=== PATIENT | female | born 1955 | race Caucasian/White ===

== ENCOUNTER → 2024-07-16 | Outpatient (CLI) | payer MEDICARE, MEDICAID, SELFPAY ==
[2024-07-16 09:37] LABS: Basophils # (Auto) 0.1 Thou/mm3 (0.0-0.2); Basophils % (Auto) 1 % (0-2.5); Eosinophils # (Auto) 0.4 Thou/mm3 (0.0-0.5); Eosinophils % (Auto) 5 % (0-10); Hematocrit 22.7 % (36.0-46.0); Immature Granulocytes % (Auto) 1 % (0-0); Immature Granulocytes Auto 0.05 Thou/mm3 (0.00-0.00); Lymphocytes # (Auto) 1.1 Thou/mm3 (1.0-4.8); Lymphocytes % (Auto) 12 % (10-50); Mean Corpuscular HGB Conc 31.7 g/dl (31.0-37.0); Mean Corpuscular Hemoglobin 30.9 pg (25.0-35.0); Mean Corpuscular Volume 97 fL (80-100); Monocytes % (Auto) 12 % (0-12); Neutrophils # (Auto) 6.3 Thou/mm3 (1.8-7.7); Neutrophils % (Auto) 71 % (37-80); Nucleated Red Blood Cell % 0 /100 WBC (0); Platelet Count 246 Thou/mm3 (140-440); RDW Standard Deviation 54.6 fL (36.4-46.3); Red Blood Count 2.33 Miln/mm3 (4.00-5.20); White Blood Count 8.9 Thou/mm3 (3.6-11.0)
[2024-07-16 09:48] LABS: Albumin, Serum 4.3 gm/dL (3.4-4.8); Anion Gap 8 (7-16); BUN/Creatinine Ratio 36 Ratio (12-20); Blood Urea Nitrogen 62 mg/dL (9-23); Calcium 9.5 mg/dL (8.3-10.6); Calcium (Corrected) 9.5 mg/dL (8.5-10.1); Carbon Dioxide 22.9 mMol/L (20.0-31.0); Chloride 110 mMol/L (98-107); Creatinine (Component) 1.7 mg/dL (0.6-1.3); Glucose 129 mg/dL (74-106); Osmolality,Calculated 300 (275-295); Phosphorous 4.5 mg/dL (2.4-5.1); Sodium 141 mMol/L (136-145); eGFR 32 See Note
[2024-07-16 09:51] LABS: Vitamin D 25 Hydroxy Total 22.8 ng/mL (7.3-40.2)
[2024-07-16 10:02] LABS: Hemoglobin 7.2 g/dL (12.0-16.0)
== END | disposition home or self-care (01) ==
LOC: COPL 08:06
PROVIDERS: PCP Physician Assistant; Referring Provider Internal Medicine; Visit Provider Internal Medicine
DX: I12.9 Hypertensive chronic kidney disease with stage 1 through stage 4 chronic kidney disease, or unspecified chronic kidney disease (principal); E11.22 Type 2 diabetes mellitus with diabetic chronic kidney disease; N18.32 Chronic kidney disease, stage 3b
CPT/HCPCS: 36415; 80069; 82306; 85025

== ENCOUNTER 2024-07-29 17:36 | Inpatient (IN) | payer MEDICARE, MEDICAID, SELFPAY ==
[2024-07-29] VITALS (9 sets, daily range): BP systolic 163–175; BP diastolic 65–93; PULSE 78–94; RESP 15–24; TEMP 36.9–37.1; O2SAT 94–100; BMI 32.9
--- NOTE | 2024-07-29 18:58 | EDNOTE_ITS ---
Altered Mental Status RME/HPI General Chief Complaint: Altered Mental Status Stated Complaint: ALTERED; WEAKNESS X 1 WK Time Seen by Provider: 07/29/24 18:59 Arrival date/time: 07/29/24 17:36 RME / HPI RME / HPI narrative: Dr. Aden's Main ED Evaluation: 69-year-old female coming in with increasing worsening shortness of breath over the last 1 week. Patient states her O2 sat was low. She is compliant with her medications. Patient was having 3-4 episodes of diarrhea x 2-3 days. Patient has a past medical history: CHF class III with an EF of 40 to 45% Non-ST elevation [place] Acute kidney injury Essential hypertension Diabetes Obesity Hypothyroidism Anemia DVT Related Data Home Medications ?Medication ?Instructions ?Recorded ?Confirmed diphenhydramine HCl 25 mg tablet 25 mg PO BID ALLERGY 08/10/23 08/10/23 (Benadryl Allergy) levothyroxine 175 mcg tablet 175 mcg PO EVERYOTHERDAY 08/10/23 08/10/23 levothyroxine 200 mcg tablet 200 mcg PO EVERYOTHERDAY 08/10/23 08/10/23 Allergies Allergy/AdvReac Type Severity Reaction Status Date / Time shellfish derived Allergy Intermediate Flushing Verified 08/12/23 19:20 aspirin Allergy Verified 08/10/23 01:05 codeine Allergy Verified 08/10/23 00:41 doxycycline Allergy Verified 08/10/23 00:41 egg Allergy Verified 08/10/23 00:41 tetracycline Allergy Verified 08/10/23 00:41 Review of Systems Review of Systems Systems Reviewed: All systems reviewed, normal except as documented Past Medical History Past Medical History CARDIAC: Positive Congestive Heart Failure and Hypertension RESPIRATORY: Negative Chronic Obstructive Pulmonary Disease (COPD) GENITOURINARY: Negative Renal Disease ENDOCRINE: Positive Diabetes Mellitus Type 2 and Hypothyroidism; Negative Diabetes Mellitus Type 1 OTHER HISTORY: Positive Cancer Surgical History SURGICAL: Positive Tonsillectomy Social History SMOKING STATUS: Never smoker SECOND HAND EXPOSURE: No ED Exam Narrative Physical exam: Patient awake. GCS 15. No acute distress. Dry mucous membranes. General General appearance: Present other Eye Eye exam: Present PERRL; Absent scleral icterus or conjunctival injection ENT ENT exam: Present mucous membranes dry Neck Neck exam: Present normal inspection Chest Chest inspection: Present normal inspection Respiratory Respiratory exam: Present normal lung sounds bilaterally Cardiovascular Cardiovascular exam: Present regular rate Abdominal Exam Abdominal exam: Present soft; Absent distention, tenderness, guarding, rebound, rigidity or normal bowel sounds Back Exam Back exam: Present normal inspection and full ROM; Absent tenderness, CVA tenderness (R) or CVA tenderness (L) Psychiatric Psychiatric exam: Present normal affect Course Course Course Narrative: CXR is ordered for determining the etiology of weakness. Quality Measures none Orders Category Date Time Status EKG (ED ONLY) *Do not use* NOW Care 07/29/24 19:[address] head/brain wo con Stat Exams 07/29/24 19:04 Completed CXRP [XR chest 1V portable] Stat Exams 07/29/24 19:03 Completed EKG (ED Only) Stat Exams 07/29/24 19:03 Draft BNP [B-Type Natriuretic Peptide] Stat Lab 07/29/24 19:24 Completed CBC Stat Lab 07/29/24 19:24 Completed CMP [Comprehensive Metabolic Panel] Stat Lab 07/29/24 19:24 Completed TSH [Thyroid Stimulating Hormone] Stat Lab 07/29/24 19:24 Completed Troponin I Stat Lab 07/29/24 19:24 Completed Troponin I Stat Lab 07/29/24 22:04 Ordered Urinalysis Stat Lab 07/29/24 19:03 Ordered Sodium Chloride 0.9% 1000 ml [Ns] 1,000 ml Med 07/29/24 19:05 Discontinued IV 999 mls/hr Vital Signs Vital signs: Vital Signs Temperature 98.7 F 07/29/24 17:40 Pulse Rate 87 07/29/24 17:40 Respiratory Rate 16 07/29/24 17:40 Blood Pressure 165/87 H 07/29/24 17:40 Pulse Oximetry (%) 99 07/29/24 17:40 Oxygen Delivery Method Room Air 07/29/24 17:40 Pulse ox is 99% on room air, which is normal according to my interpretation. Altered Mental Status MDM Narrative MDM Narrative:: Differential diagnosis includes dehydration, electrolyte abnormality, COVID, RSV, viral syndrome, doubt stroke. Possible pneumonia. Patient was seen in the emergency department and was noted that her creatinine is now elevated to 2.4 from 1.8. Troponin is 0.212 with an elevated BNP of 1941. Last BNP was [address] elevation on EKG however concern for worsening CHF exacerbation, with some hypoxia. Patient is on anticoagulant for the DVT. The symptoms did not come on acutely and at this time I do not feel the patient needs a CT angio She is compliant with her medications. Patient data External records reviewed:: [facility] previous records (Per chart review, patient was seen and admitted here on 08/10/23 for NSTEMI.) Clinical information provided by:: patient Social determinants that could affect healthcare access:: none Patient has the following chronic illnesses:: CHF, HTN, DM How is presenting disease/condition affected by chronic disease/condition?: uneffected by Evaluation data The following diagnostics were reviewed and interpreted by me:: lab results, radiology exam(s) and EKG tracing(s) Lab and/or radiology exams considered but not ordered:: none Interpretation Summary: WBC count is elevated at 12.9, Creatinine is elevated at 2.4, Glucose is elevated at 233, Troponin is elevated at 0.212, BNP is elevated at 1941, according to my interpretation. EKG done at 1922, NSR, rate of 82, LVH, QTC: 481, no STEMI, according to my interpretation. ----- I have personally reviewed the radiology data and agree with the radiologist's interpretation below: [facility] Report Signed Patient: CLARI JIMENEZ [facility]. Record#: [id number] Birthdate: 1955 Age/Sex: 69 / F Location: [facility] Attending Dr: Ordering Physician: Toshia Aden MD Date of Service: 07/29/24 Procedure(s): XR chest 1V portable Accession Number(s): [id number] cc: Ever Pardo MD; Toshia Aden MD~ Examination: AP chest single view Technique one AP portable semiupright chest single view Exam date and time: July 29, 2024 1910 hrs. Comparison August 10, 2023 Indications: Weakness chest pain shortness of breath today. Findings: Mild CHF Mild to moderate enlargement cardiac contour Prominent vascular congestion with early septal edema Moderate at the lung bases Impression: Early CHF Dictated By: Ever Pardo MD Signed By: <Electronically signed by Ever Pardo MD in [place]> 07/29/241948 [facility] Report Signed Patient: CLARI JIMENEZ. Record#: [id number] Birthdate: 1955 Age/Sex: 69 / F Location: [facility] Attending Dr: Ordering Physician: Toshia Aden MD Date of Service: 07/29/24 Procedure(s): CT head/brain wo con Accession Number(s): [id number] cc: Ever Pardo MD; Toshia Aden MD~ Examination: CT brain head without contrast. 2-D sagittal coronal reconstructions Date and time of exam:July 29, 2024 1931 hrs. Indications: Altered mental status today confusion, history CVA CTDI: vol (mGy):49.5 DLP: (mGycm):957 Technique: Multiple CT axial sections of the brain have been obtained, 5 mm slice thickness. Contrast has not been administered. 2-D sagittal, coronal reconstructions have been obtained Low dose protocols were performed. One or more of the following dose reduction techniques were used; automated exposure control, adjustment of the mA and/or KV according to patient size, use of iterative reconstruction technique. Findings: No significant ventricular enlargement. Old infarct left cerebellar hemisphere Intra-axial or extra-axial hemorrhage density is not seen. No mass effect or midline shift Basal cisterns are not remarkable. Fourth ventricle is midline. Cranial vault intact. Impression: Negative for acute hemorrhage, mass effect or midline shift As clinically warranted brain MRI follow-up would best assess for acute ischemic change Dictated By: Ever Pardo MD Signed By: <Electronically signed by Ever Pardo MD in OV> 07/29/241943 Medications / Prescriptions Medications or Prescriptions considered but not ordered:: none Medication administrations:: Medication Administration History Discontinued Medications Sodium Chloride (Ns) 1,000 mls @ 999 mls/hr IV .Q1H1M ONE Stop: 07/29/24 20:05 Last Infusion: 07/29/24 20:49 Dose: Infused Documented By: Admin: 07/29/24 19:45 Dose: 999 mls/hr Documented By: CLINT see above, if any Consultations Consultation(s) initiated? (list below): Yes Consultation #1 (Physician, Specialty, Details): Discussed case with [Dr. Jnug] from Hospitalist service regarding admission. Discussed patients ED course, exam findings, labs, and radiology results. The Hospitalist [agrees] to accept the patient for admission. Diagnosis Differential diagnosis altered mental status: other (dehydration, electrolyte abnormality, COVID, RSV, viral syndrome, stroke, pneumonia) Most likely diagnosis given after review of the tests above:: see below Admission Indicated Admission indicated?: indicated Admission Request Was there a request for admission?: Yes Admission Attestation Admission request attestation: Discussed case with [] from Hospitalist service regarding admission. Discussed patients ED course, exam findings, labs, and radiology results. The Hospitalist [agrees,declines] to accept the patient for admission. Disposition Plan Disposition Plan: Admit Critical Care Time Critical Care Time Critical Care Time: Yes Total Critical Care Time (min.): 45 Attestation: The high probability of sudden, clinically significant deterioration in the patient?s condition required the highest level of my preparedness to intervene urgently. The services I provided to this patient were to treat and/or prevent clinically significant deterioration. Services included the following: chart data review, reviewing nursing notes and/or old charts, documentation time, renewable energy consultant collaboration regarding findings and treatment options, medication orders and management, direct patient care, vital sign assessments and ordering, interpreting and reviewing diagnostic studies and lab tests. Aggregate critical care time includes only time during which I was engaged in work directly related to the patient?s care, as described above, whether at bedside or elsewhere in the Emergency Department. It did not include time spent performing other reported procedures or the services of residents, students, nurses or physician assistants. Discharge Plan Plan Patient Disposition: Admit Acute Care w/in Hospital Patient condition on transfer: Stable Prescriptions/Referrals Prescriptions/Med Rec: No Action levothyroxine 175 mcg tablet 175 mcg PO EVERYOTHERDAY Patient Comments: TAKE 1 TABLET BY MOUTH EVERY DAY diphenhydramine HCl [Benadryl Allergy] 25 mg Tablet 25 mg PO BID levothyroxine 200 mcg tablet 200 mcg PO EVERYOTHERDAY Patient Comments: TAKE 1 TABLET BY MOUTH ON MONDAYS, WEDNESDAYS, FRIDAYS AND SUNDAYS Problem List Clinical Impression: Generalized weakness, CHF (congestive heart failure), NYHA class III, Acute exacerbation of CHF (congestive heart failure), Elevated troponin I level, Acute on chronic renal failure Patient/Caregiver Discharge Instructions Print Language: Macedonian Stand Alone Forms: [employer] Info., Patient Portal Info Letter
--- NOTE | 2024-07-29 19:03 | EKG_ITS ---
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
--- NOTE | 2024-07-29 19:03 | XR_ITS ---
Examination: AP chest single view Technique one AP portable semiupright chest single view Exam date and time: July 29, 2024 1910 hrs. Comparison August 10, 2023 Indications: Weakness chest pain shortness of breath today. Findings: Mild CHF Mild to moderate enlargement cardiac contour Prominent vascular congestion with early septal edema Moderate at the lung bases Impression: Early CHF
--- NOTE | 2024-07-29 19:04 | XR_ITS ---
Examination: CT brain head without contrast. 2-D sagittal coronal reconstructions Date and time of exam:July 29, 2024 1931 hrs. Indications: Altered mental status today confusion, history CVA CTDI: vol (mGy):49.5 DLP: (mGycm):957 Technique: Multiple CT axial sections of the brain have been obtained, 5 mm slice thickness. Contrast has not been administered. 2-D sagittal, coronal reconstructions have been obtained Low dose protocols were performed. One or more of the following dose reduction techniques were used; automated exposure control, adjustment of the mA and/or KV according to patient size, use of iterative reconstruction technique. Findings: No significant ventricular enlargement. Old infarct left cerebellar hemisphere Intra-axial or extra-axial hemorrhage density is not seen. No mass effect or midline shift Basal cisterns are not remarkable. Fourth ventricle is midline. Cranial vault intact. Impression: Negative for acute hemorrhage, mass effect or midline shift As clinically warranted brain MRI follow-up would best assess for acute ischemic change
[2024-07-29] MEDS: SODIUM CHLORIDE 0.9% 1000 ML 1,000 ML 999 ML IV (19:45)
[2024-07-29 20:05] LABS: Basophils # (Auto) 0.1 Thou/mm3 (0.0-0.2); Basophils % (Auto) 1 % (0-2.5); Eosinophils % (Auto) 0 % (0-10); Hematocrit 23.3 % (36.0-46.0); Immature Granulocytes % (Auto) 2 % (0-0); Immature Granulocytes Auto 0.26 Thou/mm3 (0.00-0.00); Lymphocytes # (Auto) 0.7 Thou/mm3 (1.0-4.8); Lymphocytes % (Auto) 5 % (10-50); Mean Corpuscular HGB Conc 32.2 g/dl (31.0-37.0); Mean Corpuscular Hemoglobin 31.1 pg (25.0-35.0); Mean Corpuscular Volume 97 fL (80-100); Monocytes # (Auto) 1.1 Thou/mm3 (0.0-0.8); Monocytes % (Auto) 8 % (0-12); Neutrophils # (Auto) 10.7 Thou/mm3 (1.8-7.7); Neutrophils % (Auto) 84 % (37-80); Nucleated Red Blood Cell % 0 /100 WBC (0); Platelet Count 266 Thou/mm3 (140-440); RDW Standard Deviation 55.3 fL (36.4-46.3); Red Blood Count 2.41 Miln/mm3 (4.00-5.20); White Blood Count 12.9 Thou/mm3 (3.6-11.0)
[2024-07-29 20:14] LABS: Alanine Aminotransferase 26 U/L (10-49); Albumin, Serum 4.4 gm/dL (3.4-4.8); Albumin/Globulin Ratio 1.6 (1.2-2.2); Alkaline Phosphatase 102 U/L (46-116); Anion Gap 13 (7-16); Aspartate Amino Transferase 33 U/L (0-34); B-Type Natriuretic Peptide 1941 pg/mL (0-100); BUN/Creatinine Ratio 28 Ratio (12-20); Bilirubin,Total 0.9 mg/dL (0.3-1.2); Blood Urea Nitrogen 66 mg/dL (9-23); Calcium 9.3 mg/dL (8.3-10.6); Calcium (Corrected) 9.3 mg/dL (8.5-10.1); Carbon Dioxide 17.7 mMol/L (20.0-31.0); Chloride 108 mMol/L (98-107); Creatinine (Component) 2.4 mg/dL (0.6-1.3); Estimated Creatinine Clearance 25.4 mL/min (>60); Globulin 2.7 gm/dL (2.3-3.5); Glucose 233 mg/dL (74-106); Osmolality,Calculated 303 (275-295); Potassium 4.9 mMol/L (3.4-5.1); Sodium 139 mMol/L (136-145); Total Protein 7.1 gm/dL (5.7-8.2); eGFR 21 See Note
[2024-07-29 20:15] LABS: Hemoglobin 7.5 g/dL (12.0-16.0)
[2024-07-29 20:17] LABS: Troponin I 0.212 ng/mL (0.0-0.045)
--- NOTE | 2024-07-29 22:43 | ECHO_ITS ---
Transthoracic Echo Report Ht (in): 66 Wt (lb): 204 Exam Location: Portable Status: Inpatient Beam House Inspector: Brii Thomas Indications: Procedure Performed: BP: 147 / 66 HR: 72 Rhythm: Sinus Technical Quality: Fair MEASUREMENTS (Male / Female) Normal Values 2D ECHO LV Diastolic Diameter PLAX 5.9 cm 4.2 - 5.9 / 3.9 - 5.3 cm LV Systolic Diameter PLAX 4.4 cm IVS Diastolic Thickness 1.1 cm 0.6 - 1.0 / 0.6 - 0.9 cm LVPW Diastolic Thickness 1.1 cm 0.6 - 1.0 / 0.6 - 0.9 cm LV Relative Wall Thickness 0.4 LVOT Diameter 2.1 cm LA Volume Index 54.2 cm?/m? 16 - 28 cm?/m? Ascending Aorta Diameter 3.1 cm M-MODE Aortic Root Diameter MM 2.7 cm LA Systolic Diameter MM 4.3 cm LA Ao Ratio MM 1.6 MV E Point Septal Separation 1.3 cm AV Cusp Separation MM 2.1 cm DOPPLER AV Peak Velocity 168.0 cm/s AV Peak Gradient 11.3 mmHg AV Mean Gradient 6.0 mmHg AV Velocity Time Integral 39.0 cm LVOT Peak Velocity 89.4 cm/s LVOT Peak Gradient 3.2 mmHg LVOT Velocity Time Integral 21.4 cm LVOT Cardiac Index 2529.8 cm?/min?m? AV Area Cont Eq vti 1.9 cm? AV Area Cont Eq pk 1.8 cm? MV Peak Velocity 126.0 cm/s MV Peak Gradient 6.4 mmHg MV Mean Velocity 76.0 cm/s MV Mean Gradient 3.0 mmHg MV Area PHT 4.3 cm? MR Peak Velocity 513.5 cm/s MR Peak Gradient 105.5 mmHg Mitral E Point Velocity 103.0 cm/s Mitral A Point Velocity 71.8 cm/s Mitral E to A Ratio 1.4 LV E' Lateral Velocity 6.9 cm/s Mitral E to LV E' Lateral Ratio 15.0 LV E' Septal Velocity 4.5 cm/s Mitral E to LV E' Septal Ratio 23.1 TR Peak Velocity 253.0 cm/s TR Peak Gradient 25.6 mmHg FINDINGS Left Ventricle Mild left ventricle dilation. Mild systolic dysfunction.Mild global hypokinesis. The ejection frac tion is visually estimated at 40-45%. Right Ventricle The right ventricle is mildly dilated. Normal systolic function. The estimated right ventricular sys tolic pressure, 48 mmHg. RAP 15. Left Atrium The left atrium is moderately dilated. Right Atrium The right atrium is moderately dilated. Atrial Septum The interatrial septum appears normal with no evidence of a shunt. Aorta The aorta is normal by two-dimensional, color flow and Doppler interrogation. Mitral Valve The mitral valve is mildly MAC. There is mild to moderate mitral valve regurgitation. Aortic Valve The aortic valve is trileaflet and normal by two-dimensional, color flow and Doppler interrogation. There is no significant aortic valve regurgitation. Tricuspid Valve The tricuspid valve is normal by two-dimensional, color flow and Doppler interrogation. There is mil d tricuspid valve regurgitation. Pulmonic Valve There is mild pulmonic valve regurgitation. Vessels The pulmonary artery appears normal. The inferior vena cava pulmonary and hepatic veins appear mildl y dilated. Pericardium The pericardium is normal by two-dimensional imaging. There is no significant pericardial effusion. CONCLUSIONS Indication: Heart failure Mild LV dilation. Moderate systolic dysfunction with moderate global hypokinesis. Estimated EF 35-40 % Stage II diastolic dysfunction. Mild LVH. Mild RV dilation. Normal RV function. Estimated RVSP 48mmHg. Moderate PAH. RAP 15. Moderate biatrial dilation. Mild MAC. Mild to moderate MR. Mild TR, PI. IVC mild dilation. Jeff Flores (Electronically Signed) Final Date: 31 July 2024 13:31
--- NOTE | 2024-07-29 22:45 | XR_ITS ---
Examination: Duplex scan of the lower extremity, unilateral right complete Date and time of exam: July 29, 2024 at 11:42 PM Indications: Right leg pain several years with shortness of breath today Technique: Duplex scan of the extremity veins using B-mode/grayscale imaging and Doppler spectral analysis and color flow Attention is directed to internal echogenicity, compression and augmentation involving these veins, color flow assessment, spectral analysis Findings: Major deep venous structures in the extremity demonstrate normal course and caliber. There is no evidence of deep vein thrombosis. Normal color flow and spectral analysis Impression: Negative for DVT..
[2024-07-29 22:51] LABS: Collection Type, Urine Clean Catch
--- NOTE | 2024-07-29 22:53 | ESHP_ITS ---
<Statement entered by Christopher Jung MD - 07/30/24 13:31> was present for the essential components of the history, physical examination, diagnosis, and treatment plan with the resident. I have reviewed the documentation, discussed the case with the resident and agree with the patient's care as documented by the resident. High risk complex 75 mins. 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 Patient endorses progressive worsening of shortness of breath for the last week with associated bilateral lower extremity edema, but denies associated orthopnea, PND, and chest discomfort. She is followed outpatient by Dr. Flores. Her only other complaint is fecal incontinence and 2-3 episodes of nonbloody loose bowel movements. No fever, chills, abdominal pain, nausea, vomiting, or recent antibiotic use. ED course: BP 165/87, otherwise patient on 2 L NC saturating 99%. WBC 12.9, Hgb 7.5, HCO3 17.7, Cr 2.4, GFR 21, glucose 233, BNP 1941, Troponin 0.212 Given 1 L NS bolus in ED PMHx: as listed above Medications: Levothyroxine, amlodipine, losartan, carvedilol, Lasix, Glyburide, Januvia, lisinopril SHx: No cigarettes, alcohol, or illicit drug use Review of Systems Review of Systems Systems Reviewed: All systems reviewed, normal except as documented Exam Vital Signs Temp Pulse Resp BP Pulse Ox O2 Del Method 98.4 F 78 20 163/82 H 100 Room Air 07/29/24 19:16 07/29/24 21:01 07/29/24 21:01 07/29/24 21:01 07/29/24 21:01 07/29/24 19:16 Narrative Exam General: hirsutism, AOx3, laying flat in no acute distress, able to speak full sentences HEENT: NC/AT, mucous membranes moist, bilateral sclera anicteric Cardiovascular: regular rate and rhythm, S1/S2 present, no murmurs appreciated Pulmonary: clear to auscultation bilaterally, no rales/rhonchi/wheezes Abdominal: soft, non-tender, non-distended, no rebound/guarding, normal bowel sounds present Musculoskeletal: bilateral lower extremity edema R > L Skin: warm and dry, intact, no rashes Neuro: CN II-XII intact, no focal deficits Results: Labs 07/30/24 04:58 07/30/24 04:58 Labs: Short CBC 07/29/24 Range/Units 19:24 WBC 12.9 H (3.6-11.0) Thou/mm3 Hgb 7.5 L (12.0-16.0) g/dL Hct 23.3 L (36.0-46.0) % Plt Count 266 (140-440) Thou/mm3 BMP 07/29/24 19:24 Sodium 139 Potassium 4.9 Chloride 108 H Carbon Dioxide 17.7 L BUN 66 H Creatinine 2.4 H Glucose 233 H Calcium 9.3 Cardiac Enzymes 07/29/24 Range/Units 19:24 Troponin I 0.212 H* (0.0-0.045) ng/mL Liver Function 07/29/24 Range/Units 19:24 Total Bilirubin 0.9 (0.3-1.2) mg/dL AST 33 (0-34) U/L ALT 26 (10-49) U/L Alkaline Phosphatase 102 (46-116) U/L Albumin 4.4 (3.4-4.8) gm/dL Quality Measures Quality Measures none Advance care planning discussed with:: patient Medications Home Medications and Allergies Home Medications ?Medication ?Instructions ?Recorded ?Confirmed ?Type diphenhydramine HCl 25 mg tablet 25 mg PO BID PRN ALLERGY 08/10/23 07/30/24 History (Benadryl Allergy) levothyroxine 175 mcg tablet 175 mcg PO EVERYOTHERDAY 08/10/23 07/30/24 History levothyroxine 200 mcg tablet 200 mcg PO EVERYOTHERDAY 08/10/23 07/30/24 History amlodipine 5 mg tablet 5 mg PO QDAY 07/30/24 07/30/24 History carvedilol 6.25 mg tablet 6.25 mg PO BID 07/30/24 07/30/24 History furosemide 80 mg tablet 80 mg PO QDAY 07/30/24 07/30/24 History glyburide 5 mg tablet 10 mg PO BID 07/30/24 07/30/24 History losartan 25 mg tablet 25 mg PO QDAY 07/30/24 07/30/24 History sitagliptin phosphate 50 mg tablet 50 mg PO QDAY 07/30/24 07/30/24 History (Januvia) Allergies Allergy/AdvReac Type Severity Reaction Status Date / Time shellfish derived Allergy Intermediate Flushing Verified 08/12/23 19:20 aspirin Allergy Verified 08/10/23 01:05 codeine Allergy Verified 08/10/23 00:41 doxycycline Allergy Verified 08/10/23 00:41 egg Allergy Verified 08/10/23 00:41 tetracycline Allergy Verified 08/10/23 00:41 Visit Medications Acetaminophen (Acetaminophen 325 Mg Tablet) 650 mg PO Q6H PRN PRN Reason: PAIN OR FEVER > 101 Stop: 08/28/24 22:40 Amlodipine Besylate (Amlodipine Besylate 5 Mg Tablet) 5 mg PO QDAY [facility] Stop: 08/28/24 22:49 Carvedilol (Carvedilol 3.125 Mg Tablet) 6.25 mg PO BIDWM [facility] Stop: 08/29/24 07:59 Dextrose (Dextrose 50%-Water Inj 50 Ml Syringe) 25 ml IV Q15MIN PRN PRN Reason: BG 50-70 responsive npo pt Stop: 08/28/24 22:44 Dextrose (Dextrose 50%-Water Inj 50 Ml Syringe) 50 ml IV Q15MIN PRN PRN Reason: BG <50 OR BG <70 & pt unresponsive Stop: 08/28/24 22:44 Furosemide (Furosemide Inj 10 Mg/Ml 4ml Vial) 40 mg IVP BIDD [facility] Stop: 08/28/24 22:59 Glucagon (Glucagon Inj 1 Mg Vial) 1 mg IM Q15MIN PRN PRN Reason: BG <70, and no IV access Heparin Sodium (Porcine) (Heparin Sod Inj 5000 Unit/Ml Vial) 5,000 unit SC Q12HR [facility] Stop: 08/13/24 08:59 Insulin Human Lispro (Insulin Lispro (Admelog) 1 Unit/0.01 Ml Unit) 0 unit SC ACHS [facility]; Protocol Stop: 08/29/24 07:29 Levothyroxine Sodium (Levothyroxine Sodium 125 Mcg Tablet) 175 mcg PO ACBR [facility] Stop: 08/29/24 05:59 Ondansetron HCl (Ondansetron Inj 2 Mg/Ml Inj 2 Ml) 4 mg IV Q6H PRN; Protocol PRN Reason: NAUSEA OR VOMITING Stop: 08/28/24 22:40 Discontinued Medications Sodium Chloride (Ns) 1,000 mls @ 999 mls/hr IV .Q1H1M ONE Stop: 07/29/24 20:05 Last Infusion: 07/29/24 20:49 Dose: Infused Assessment & Plan Plan Rayray Ratliff is a 69-year-old female with past medical history of 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 #Acute hypoxic respiratory failure, secondary to #Acute CHF exacerbation #HFmrEF (EF 40-45%, 08/2023) #NSTEMI type II, likely demand ischemia Dents with progressive shortness of breath over 1 week. No orthopnea, PND, worsening BLE edema. However, does present with BLE with R > L, so Doppler ordered. BNP 194, Troponin 0.212 -> 0.315. ? Lasix 40 mg IV twice daily ? Carvedilol 6.25 mg p.o. twice daily ? Keep K > 4 and Mg > 2, replete as needed ? Fluid restriction (1.5 L/day), daily weights, strict I's and O's ? Trend troponin ? Follow-up echo ? Follow-up Doppler RLE #Acute on chronic kidney injury #Acute kidney injury #Chronic kidney disease, stage IV Possibly cardiorenal syndrome given history of CHF. Will diurese with 40 mg IV Lasix twice daily while monitoring kidney function. ? Nephrology consulted, appreciate recommendations ? Lasix as above ? Avoid nephrotoxins, renally dose medications #Normocytic anemia, chronic Possibly due to CKD as labs have shown decreased kidney function for almost 1 year. No signs of blood loss and hgb stable from prior ED visit. ? Monitor H&H #Type 2 diabetes mellitus A1c 06/2024 7.3%. ? SSI #Hypertension Defer home losartan and lisinopril given ZELDA. ? Amlodipine 5 mg daily ? Carvedilol 6.25 mg p.o. twice daily #Hypothyroidism ? Levothyroxine 175 mcg p.o. Hospital management: Disposition: 2-3 hospital nights Fluids: deferred Diet: cardiac Lines: peripheral DVT prophylaxis: heparin SC q12hr GI prophylaxis: not indicated CODE STATUS: DNR ----- Plan discussed with attending physician Dr. Fabiana Villalobos MD PGY-1 Internal Medicine
[2024-07-29 22:56] LABS: Bilirubin,Urine Negative (Negative); Blood,Urine 1+ (Negative); Clarity,Urine Clear (Clear/Hazy); Color,Urine Lt-Yellow (Lt Yel-Yel); Glucose, Urine Trace (Negative); Ketones,Urine Trace (Negative); Leukocyte Esterase,Urine Negative (Negative); Nitrite,Urine Negative (Negative); PH,Urine 5.5 (5.0-7.0); Protein,Urine 2+ (Neg - Trace); RBC,Urine 1 /hpf (0-3); Specific Gravity,Urine 1.017 (1.001-1.035); Squamous Epithelial Cell,Urine 1 /hpf (0-5); Urobilinogen,Urine Negative mg/dL (0.0-1.0); WBC,Urine 2 /hpf (0-5)
[2024-07-29 23:06] LABS: Troponin I 0.315 ng/mL (0.0-0.045)
[2024-07-29] MEDS: amLODIPine BESYLATE 5 MG TABLET PO (23:07)
[2024-07-29] MEDS: FUROSEMIDE INJ 10 MG/ML 4ML VIAL 40 MG IVP (23:07)
[2024-07-30] VITALS (15 sets, daily range): BP systolic 130–160; BP diastolic 58–74; PULSE 67–90; RESP 10–20; TEMP 36.2–36.7; O2SAT 96–100; BMI 15.0
--- NOTE | 2024-07-30 00:43 | PRELIM_ITS ---
Right lower extremity venous Doppler ultrasound. July 29, 2024 2342 hours Clinical history: Rule out DVT Technique: Duplex scan of the right lower extremity deep venous systems was performed utilizi ng 2D grayscale imaging, Doppler spectral analysis and color flow Doppler and with compression. Uriel rison: No prior study is available for comparison. Findings:Schmidt scale, color flow and spectral Doppl er evaluation of the right lower extremity deep veins were performed.The common femoral, superficial femoral and popliteal veins are patent and compressible. Normal respiratory variation is noted. The v isualized calf veins are patent. There is no evidence of occlusive or nonocclusive thrombus. The grea t saphenous vein is patent and compressible at the level of the saphenofemoral junction. Impression:N o sonographic evidence of deep venous thrombosis in the right lower extremity. Report Electronically Signed By: Damian Dawn 07/30/2024 12:42:29 AM [EST]
--- NOTE | 2024-07-30 00:53 | PC.NURSE ---
REPORT CALLED TO MARGE CASTANEDA. ALL QUESTIONS ASKED AND ANSWERED. PATIENT TRANSFERRED TO FLOOR WITH STAFF. NO DISTRESS NOTED ON TRANSFER.
[2024-07-30] MEDS: ACETAMINOPHEN 325 MG TABLET 650 MG PO (01:38)
[2024-07-30 03:01] LABS: Troponin I 0.433 ng/mL (0.0-0.045)
[2024-07-30] MEDS: FUROSEMIDE INJ 10 MG/ML 4ML VIAL 40 MG IVP ×2 (05:30→17:00)
[2024-07-30] MEDS: LEVOTHYROXINE SODIUM 25 MCG TABLET 175 MCG PO (05:32)
[2024-07-30 05:47] LABS: Basophils # (Auto) 0.1 Thou/mm3 (0.0-0.2); Basophils % (Auto) 1 % (0-2.5); Eosinophils % (Auto) 0 % (0-10); Immature Granulocytes % (Auto) 4 % (0-0); Immature Granulocytes Auto 0.49 Thou/mm3 (0.00-0.00); Lymphocytes # (Auto) 1.3 Thou/mm3 (1.0-4.8); Lymphocytes % (Auto) 11 % (10-50); Mean Corpuscular HGB Conc 31.8 g/dl (31.0-37.0); Mean Corpuscular Volume 97 fL (80-100); Monocytes # (Auto) 1.9 Thou/mm3 (0.0-0.8); Monocytes % (Auto) 15 % (0-12); Neutrophils # (Auto) 8.9 Thou/mm3 (1.8-7.7); Neutrophils % (Auto) 70 % (37-80); Nucleated Red Blood Cell # 0.03 Thou/mm3 (0.00-0.00); Nucleated Red Blood Cell % 0 /100 WBC (0); Platelet Count 241 Thou/mm3 (140-440); RDW Standard Deviation 55.7 fL (36.4-46.3); Red Blood Count 2.26 Miln/mm3 (4.00-5.20); White Blood Count 12.8 Thou/mm3 (3.6-11.0)
--- NOTE | 2024-07-30 06:25 | XR_ITS ---
Examination: Retroperitoneal ultrasound, complete Technique: Multiple high resolution grayscale images of the retroperitoneum obtained, including kidneys and bladder. Exam date and time:July 30, 2024 1240 hours INDICATIONS: Acute renal insufficiency on laboratory examinations today FINDINGS: Right kidney 11.1 x 6.7 x 7.9 cm cortex 1.9 cm Left kidney 11.2 x 8.7 x 7.7 cm renal cortex 2.0 cm Moderate bilateral renal parenchymal scar formation No hydronephrosis Bladder prevoid month 2 70 cc IMPRESSION: Moderate bilateral renal parenchymal scar formation
[2024-07-30 06:28] LABS: Anion Gap 11 (7-16); BUN/Creatinine Ratio 29 Ratio (12-20); Blood Urea Nitrogen 60 mg/dL (9-23); Calcium 8.9 mg/dL (8.3-10.6); Carbon Dioxide 18.8 mMol/L (20.0-31.0); Cardiac Risk Estimate 6.5 RATIO (3.7-5.6); Chloride 110 mMol/L (98-107); Cholesterol 214 mg/dL (132-200); Creatinine (Component) 2.1 mg/dL (0.6-1.3); Glucose 198 mg/dL (74-106); HDL Cholesterol 33 mg/dL (40-60); LDL Cholesterol,Calculated 136 mg/dL (0-130); Magnesium 2.6 mg/dL (1.6-2.6); Osmolality,Calculated 302 (275-295); Phosphorous 4.7 mg/dL (2.4-5.1); Sodium 140 mMol/L (136-145); Triglycerides 223 mg/dL (30-150); eGFR 25 See Note
[2024-07-30 09:28] LABS: Troponin I 0.407 ng/mL (0.0-0.045)
[2024-07-30] MEDS: carVEDILOL 3.125 MG TABLET 6.25 MG PO ×2 (09:35→16:59)
[2024-07-30] MEDS: HEPARIN SOD INJ 5000 UNIT/ML VIAL SC ×2 (09:36→20:01)
[2024-07-30] MEDS: amLODIPine BESYLATE 5 MG TABLET PO (09:36)
--- NOTE | 2024-07-30 13:04 | ESCONSULT_ITS ---
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 Patient endorses progressive worsening of shortness of breath for the last week with associated bilateral lower extremity edema, but denies associated orthopnea, PND, and chest discomfort. She is followed outpatient by Dr. Flores. Her only other complaint is fecal incontinence and 2-3 episodes of nonbloody loose bowel movements. No fever, chills, abdominal pain, nausea, vomiting, or recent antibiotic use. Patient received 1 L bolus normal saline in the ED. ED labs significant for sodium 139, potassium 4.9, bicarb 17.7, BUN 66, creatinine 2.4, eGFR 21 . Baseline creatinine 1.6-2.0, baseline eGFR 30?35. Nephrology consulted for ZELDA on CKD in setting of CHF exacerbation. Patient seen and examined on the floors. Patient resting comfortably. Bilateral lower extremity edema, lungs clear to auscultation. 0 L output recorded. Patient unclear on home meds, med rec's pending, will follow-up. Labs today potassium 4.0, bicarb 18.8, BUN 60, creatinine 2.1, eGFR 25. Patient currently receiving IV Lasix for diuretics. cc:: cc: Christopher Jung MD Review of Systems Review of Systems Systems Reviewed: All systems reviewed, normal except as documented Past Medical History Past Medical History CARDIAC: Positive Congestive Heart Failure and Hypertension RESPIRATORY: Negative Chronic Obstructive Pulmonary Disease (COPD) GENITOURINARY: Negative Renal Disease ENDOCRINE: Positive Diabetes Mellitus Type 2 and Hypothyroidism; Negative Diabetes Mellitus Type 1 HEMATOLOGIC: Positive Anemia OTHER HISTORY: Positive Cancer Surgical History SURGICAL: Positive Tonsillectomy Social History SMOKING STATUS: Current every day smoker SECOND HAND EXPOSURE: Yes Past Medical History Comments PMH COMMENT: Past surgical history: Nil Allergies: As per chart Social history: Patient lives in a trailer here lives by herself does ADLs by herself but needs some help with IADLs. Never did not have any kids. 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 Education level is high school diploma and did a couple of years of training after that. Denies any smoking alcohol or drug abuse. Family History: Mother was diagnosed with heart disease in the 40s and leading early 60s but she is unsure of exactly what it was. Brother also has history of heart failure and one of her cousins has pacemaker. Patient does not know exact cardiac history of many of the family members. Exam Vital Signs Temp Pulse Resp BP Pulse Ox O2 Del Method O2 Flow Rate 97.4 F 72 16 147/66 H 99 Nasal Cannula 1 07/30/24 08:00 07/30/24 09:36 07/30/24 08:00 07/30/24 09:36 07/30/24 08:00 07/30/24 08:00 07/30/24 08:00 Narrative Exam PE: Gen: Well-developed and well-nourished. HEENT: NCAT, PERRLA, EOMI, MMM, anicteric conjunctivae. CVS: normal S1 and S2. RRR. No M/R/G. Resp: CTA B/L. No rhonchi, rales, crackles or wheezing. Abd: soft, non-tender, non-distended. MSK: Good ROM in BUE & BLE. No rash. Bilateral lower extremity edema. Neuro: CN II-XII grossly intact. Strength 5/5 in BUE & BLE. Alert and oriented x3. Results Labs 07/31/24 05:58 07/31/24 05:58 Labs: Short CBC 07/29/24 07/30/24 Range/Units 19:24 04:58 WBC 12.9 H 12.8 H (3.6-11.0) Thou/mm3 Hgb 7.5 L 7.0 L (12.0-16.0) g/dL Hct 23.3 L 22.0 L (36.0-46.0) % Plt Count 266 241 (140-440) Thou/mm3 BMP 07/29/24 07/30/24 19:24 04:58 Sodium 139 140 Potassium 4.9 4.0 D Chloride 108 H 110 H Carbon Dioxide 17.7 L 18.8 L BUN 66 H 60 H Creatinine 2.4 H 2.1 H Glucose 233 H 198 H Calcium 9.3 8.9 Cardiac Enzymes 07/29/24 07/29/24 07/30/24 Range/Units 19:24 22:25 01:46 Troponin I 0.212 H* 0.315 H* 0.433 H* (0.0-0.045) ng/mL 07/30/24 Range/Units 08:46 Troponin I 0.407 H* (0.0-0.045) ng/mL Liver Function 07/29/24 Range/Units 19:24 Total Bilirubin 0.9 (0.3-1.2) mg/dL AST 33 (0-34) U/L ALT 26 (10-49) U/L Alkaline Phosphatase 102 (46-116) U/L Albumin 4.4 (3.4-4.8) gm/dL Urine 07/29/24 Range/Units 22:44 Urine Color Lt-Yellow (Lt Yel-Yel) Urine Clarity Clear (Clear/Hazy) Urine pH 5.5 (5.0-7.0) Ur Specific Jackson 1.017 (1.001-1.035) Urine Protein 2+ A (Neg - Trace) Urine Glucose (UA) Trace (Negative) Quality Measures Quality Measures VTE prophylaxis Advance care planning discussed with:: patient Medications Home Medications and Allergies Home Medications ?Medication ?Instructions ?Recorded ?Confirmed ?Type diphenhydramine HCl 25 mg tablet 25 mg PO BID PRN ALLERGY 08/10/23 07/30/24 History (Benadryl Allergy) levothyroxine 175 mcg tablet 175 mcg PO EVERYOTHERDAY 08/10/23 07/30/24 History levothyroxine 200 mcg tablet 200 mcg PO EVERYOTHERDAY 08/10/23 07/30/24 History amlodipine 5 mg tablet 5 mg PO QDAY 07/30/24 07/30/24 History carvedilol 6.25 mg tablet 6.25 mg PO BID 07/30/24 07/30/24 History furosemide 80 mg tablet 80 mg PO QDAY 07/30/24 07/30/24 History glyburide 5 mg tablet 10 mg PO BID 07/30/24 07/30/24 History losartan 25 mg tablet 25 mg PO QDAY 07/30/24 07/30/24 History sitagliptin phosphate 50 mg tablet 50 mg PO QDAY 07/30/24 07/30/24 History (Januvia) Allergies Allergy/AdvReac Type Severity Reaction Status Date / Time shellfish derived Allergy Intermediate Flushing Verified 08/12/23 19:20 aspirin Allergy Verified 08/10/23 01:05 codeine Allergy Verified 08/10/23 00:41 doxycycline Allergy Verified 08/10/23 00:41 egg Allergy Verified 08/10/23 00:41 tetracycline Allergy Verified 08/10/23 00:41 Visit Medications Acetaminophen (Acetaminophen 325 Mg Tablet) 650 mg PO Q6H PRN PRN Reason: PAIN OR FEVER > 101 Stop: 08/28/24 22:40 Last Admin: 07/30/24 01:38 Dose: 650 mg Amlodipine Besylate (Amlodipine Besylate 5 Mg Tablet) 5 mg PO QDAY [facility] Stop: 08/28/24 22:49 Last Admin: 07/30/24 09:36 Dose: 5 mg Atorvastatin Calcium (Atorvastatin Calcium 20 Mg Tablet) 40 mg PO HS [facility] Stop: 08/29/24 20:59 Carvedilol (Carvedilol 3.125 Mg Tablet) 6.25 mg PO BIDWM [facility] Stop: 08/29/24 07:59 Last Admin: 07/30/24 09:35 Dose: 6.25 mg Dextrose (Dextrose 50%-Water Inj 50 Ml Syringe) 25 ml IV Q15MIN PRN PRN Reason: BG 50-70 responsive npo pt Stop: 08/28/24 22:44 Dextrose (Dextrose 50%-Water Inj 50 Ml Syringe) 50 ml IV Q15MIN PRN PRN Reason: BG <50 OR BG <70 & pt unresponsive Stop: 08/28/24 22:44 Furosemide (Furosemide Inj 10 Mg/Ml 4ml Vial) 40 mg IVP BIDD [facility] Stop: 08/28/24 22:59 Last Admin: 07/30/24 05:30 Dose: 40 mg Glucagon (Glucagon Inj 1 Mg Vial) 1 mg IM Q15MIN PRN PRN Reason: BG <70, and no IV access Heparin Sodium (Porcine) (Heparin Sod Inj 5000 Unit/Ml Vial) 5,000 unit SC Q12HR [facility] Stop: 08/13/24 08:59 Last Admin: 07/30/24 09:36 Dose: 5,000 unit Insulin Human Lispro (Insulin Lispro (Admelog) 1 Unit/0.01 Ml Unit) 0 unit SC ACHS [facility]; Protocol Stop: 08/29/24 07:29 Last Admin: 07/30/24 12:05 Dose: Not Given Levothyroxine Sodium (Levothyroxine Sodium 25 Mcg Tablet) 175 mcg PO ACBR [facility] Stop: 08/29/24 05:59 Last Admin: 07/30/24 05:32 Dose: 175 mcg Ondansetron HCl (Ondansetron Inj 2 Mg/Ml Inj 2 Ml) 4 mg IV Q6H PRN; Protocol PRN Reason: NAUSEA OR VOMITING Stop: 08/28/24 22:40 Discontinued Medications Sodium Chloride (Ns) 1,000 mls @ 999 mls/hr IV .Q1H1M ONE Stop: 07/29/24 20:05 Last Infusion: 07/29/24 20:49 Dose: Infused Assessment & Plan Plan 69-year-old female with past medical history of 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 #Acute on chronic kidney injury-secondary to prerenal azotemia/CHF exacerbation. #Chronic kidney disease, stage IV Patient has history of CKD, baseline creatinine 1.6?2.0, baseline eGFR 30?35. On admission patient had BUN 66, creatinine 2.4, eGFR 21. Patient received 1 L normal saline bolus in ED before being initiated on IV Lasix for diuresis. Kidney function showed improvement: BUN 60, creatinine 2.1, eGFR 25. Plan: -Avoid nephrotoxins -Renally dose meds -Monitor daily labs -Diuresis: Lasix 40 mg IV twice daily -Strict I's and O's -Follow-up urine studies -Follow-up renal ultrasound #Acute hypoxic respiratory failure, secondary to #Acute CHF exacerbation #HFmrEF (EF 40-45%, 08/2023) #NSTEMI type II, likely demand ischemia #Normocytic anemia, chronic #Type 2 diabetes mellitus #Hypertension #Hypothyroidism Management as per primary team. DVT prophylaxis: Heparin GI prophylaxis: None Diet: Cardiac/carb consistent low Lines: Peripheral IV Code status: DNR Thank you for allowing us to participate in the care of this patient. Plan of care discussed with attending Dr. Lalnos. Romeo De Leon MD PGY-1 Attending Provider Attestation/Addendum patient seen and examined with resident physician Dr. De Leon. Note reviewed, agree with findings and recommendations with changes made. Patient with CHF exacerbation and ZELDA. Continue with diuretics. Creatinine tad better. Thank you Dr. Jung for allowing me to participate in the care of Ms. Ratliff
--- NOTE | 2024-07-30 13:06 | ESPR_ITS ---
<Statement entered by Barrington Muller MD - 07/31/24 07:34> Senior Resident Attestation: I supervised/discussed management plan with resident physician Dr. Brooks, and was involved in the care of this patient. I personally saw and examined the patient and discussed the assessment and plan with the entire medicine team, including my attending. I agree with the assessment and plan as documented. Patient's care was discussed with attending physician, Dr. Bri Muller MD PGY-3 Documentation for date of: 07/30/24 Subjective Subjective Interval history: Patient seen at bedside, patient admitted overnight for CHF exacerbation. Patient is saturating well on room air, denies orthopnea. Will continue to monitor intake and output, fluid restriction 1500cc Patient is refusing insulin, states that she is allergic to all kinds of insulin. Reports that insulin causes burning sensation and allergic reaction. Patient's blood glucose in the 240s explained in detail about how insulin works. Patient continues to refuse insulin. Risks explained. Consulted cardiology. Exam Vital Signs Temp Pulse Resp BP Pulse Ox O2 Del Method O2 Flow Rate 97.4 F 72 16 147/66 H 99 Nasal Cannula 1 07/30/24 08:00 07/30/24 09:36 07/30/24 08:00 07/30/24 09:36 07/30/24 08:00 07/30/24 08:00 07/30/24 08:00 Narrative Exam General: hirsutism, AOx3, laying flat in no acute distress, able to speak full sentences HEENT: NC/AT, mucous membranes moist, bilateral sclera anicteric Cardiovascular: regular rate and rhythm, S1/S2 present, no murmurs appreciated Pulmonary: clear to auscultation bilaterally, no rales/rhonchi/wheezes Abdominal: soft, non-tender, non-distended, no rebound/guarding, normal bowel sounds present Musculoskeletal: bilateral lower extremity edema R > L Skin: warm and dry, intact, no rashes Neuro: CN II-XII intact, no focal deficits Objective Labs 07/30/24 04:58 07/30/24 04:58 Labs: Laboratory Results - last 24 hr 07/29/24 07/29/24 07/29/24 19:24 22:25 22:44 WBC 12.9 H RBC 2.41 L Hgb 7.5 L Hct 23.3 L MCV 97 MCH 31.1 MCHC 32.2 RDW Std Deviation 55.3 H Plt Count 266 Neut % (Auto) 84 H Lymph % (Auto) 5 L [place] % (Auto) 8 Eos % (Auto) 0 Baso % (Auto) 1 Neut # (Auto) 10.7 H Lymph # (Auto) 0.7 L [place] # (Auto) 1.1 H Eos # (Auto) 0.0 Baso # (Auto) 0.1 Immature Gran # (Auto) 0.26 H Absolute Nucleated RBC 0.00 Immature Gran % 2 H Nucleated RBC % 0 Sodium 139 Potassium 4.9 Chloride 108 H Carbon Dioxide 17.7 L Anion Gap 13 BUN 66 H Creatinine 2.4 H Estim Creat Clear Calc 25.4 L eGFR 21 L BUN/Creatinine Ratio 28 H Glucose 233 H Calculated Osmolality 303 H Calcium 9.3 Corrected Calcium 9.3 Phosphorus Magnesium Total Bilirubin 0.9 AST 33 ALT 26 Alkaline Phosphatase 102 Troponin I 0.212 H* 0.315 H* B-Natriuretic Peptide 1941 H* Total Protein 7.1 Albumin 4.4 Globulin 2.7 Albumin/Globulin Ratio 1.6 Triglycerides Cholesterol LDL Cholesterol, Calc HDL Cholesterol Cholesterol/HDL Ratio TSH 0.80 Ur Collection Type Clean Catch Urine Color Lt-Yellow Urine Clarity Clear Urine pH 5.5 Ur Specific [place] 1.017 Urine Protein 2+ A Urine Glucose (UA) Trace Urine Ketones Trace Urine Blood 1+ A Urine Nitrite Negative Urine Bilirubin Negative Urine Urobilinogen (Auto) Negative Ur Leukocyte Esterase Negative Urine RBC 1 Urine WBC 2 Ur Squamous Epith Cells 1 Urine Bacteria None 07/30/24 07/30/24 07/30/24 01:46 04:58 08:46 WBC 12.8 H RBC 2.26 L Hgb 7.0 L Hct 22.0 L MCV 97 MCH 31.0 MCHC 31.8 RDW Std Deviation 55.7 H Plt Count 241 Neut % (Auto) 70 Lymph % (Auto) 11 [place] % (Auto) 15 H Eos % (Auto) 0 Baso % (Auto) 1 Neut # (Auto) 8.9 H Lymph # (Auto) 1.3 [place] # (Auto) 1.9 H Eos # (Auto) 0.0 Baso # (Auto) 0.1 Immature Gran # (Auto) 0.49 H Absolute Nucleated RBC 0.03 H Immature Gran % 4 H Nucleated RBC % 0 Sodium 140 Potassium 4.0 D Chloride 110 H Carbon Dioxide 18.8 L Anion Gap 11 BUN 60 H Creatinine 2.1 H Estim Creat Clear Calc 29.0 L eGFR 25 L BUN/Creatinine Ratio 29 H Glucose 198 H Calculated Osmolality 302 H Calcium 8.9 Corrected Calcium Phosphorus 4.7 Magnesium 2.6 Total Bilirubin AST ALT Alkaline Phosphatase Troponin I 0.433 H* 0.407 H* B-Natriuretic Peptide Total Protein Albumin Globulin Albumin/Globulin Ratio Triglycerides 223 H Cholesterol 214 H LDL Cholesterol, Calc 136 H HDL Cholesterol 33 L Cholesterol/HDL Ratio 6.5 H TSH Ur Collection Type Urine Color Urine Clarity Urine pH Ur Specific [place] Urine Protein Urine Glucose (UA) Urine Ketones Urine Blood Urine Nitrite Urine Bilirubin Urine Urobilinogen (Auto) Ur Leukocyte Esterase Urine RBC Urine WBC Ur Squamous Epith Cells Urine Bacteria Quality Measures Quality Measures none Advance care planning discussed with:: patient Assessment & Plan Assessment Current Active Medications: Generic Name Dose Route Start Last Admin Trade Name Freq PRN Reason Stop Dose Admin Acetaminophen 650 mg 07/29/24 22:41 07/30/24 01:38 Acetaminophen 325 Mg Tablet PO 08/28/24 22:40 650 mg Q6H PRN Administration PAIN OR FEVER > 101 Amlodipine Besylate 5 mg 07/29/24 22:50 07/30/24 09:36 Amlodipine Besylate 5 Mg Tablet PO 08/28/24 22:49 5 mg QDAY NGOC Administration Atorvastatin Calcium 40 mg 07/30/24 21:00 Atorvastatin Calcium 20 Mg Tablet PO 08/29/24 20:59 HS NGOC Carvedilol 6.25 mg 07/30/24 08:00 07/30/24 09:35 Carvedilol 3.125 Mg Tablet PO 08/29/24 07:59 6.25 mg BIDWM NGOC Administration Dextrose 25 ml 07/29/24 22:45 Dextrose 50%-Water Inj 50 Ml Syringe IV 08/28/24 22:44 Q15MIN PRN BG 50-70 responsive npo pt Dextrose 50 ml 07/29/24 22:45 Dextrose 50%-Water Inj 50 Ml Syringe IV 08/28/24 22:44 Q15MIN PRN BG <50 OR BG <70 & pt unresponsive Furosemide 40 mg 07/29/24 23:00 07/30/24 05:30 Furosemide Inj 10 Mg/Ml 4ml Vial IVP 08/28/24 22:59 40 mg BIDD NGOC Administration Glucagon 1 mg 07/29/24 22:45 Glucagon Inj 1 Mg Vial IM Q15MIN PRN BG <70, and no IV access Heparin Sodium (Porcine) 5,000 unit 07/30/24 09:00 07/30/24 09:36 Heparin Sod Inj 5000 Unit/Ml Vial SC 08/13/24 08:59 5,000 unit Q12HR NGOC Administration Insulin Human Lispro 0 unit 07/30/24 07:30 07/30/24 12:05 Insulin Lispro (Admelog) 1 Unit/0.01 Ml Unit SC 08/29/24 07:29 Not Given ACHS NGOC Protocol Levothyroxine Sodium 175 mcg 07/30/24 06:00 07/30/24 05:32 Levothyroxine Sodium 25 Mcg Tablet PO 08/29/24 05:59 175 mcg ACBR NGOC Administration Ondansetron HCl 4 mg 07/29/24 22:41 Ondansetron Inj 2 Mg/Ml Inj 2 Ml IV 08/28/24 22:40 Q6H PRN NAUSEA OR VOMITING Protocol Plan Rayray Ratliff is a 69-year-old female with past medical history of 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 No orthopnea, PND, worsening BLE edema. Patient was started on 2 L nasal cannula as patient was hypoxic secondary to CHF exacerbation Patient's troponins were uptrending on admission, eventually down trended BNP 1941 on admission. Bilateral lower extremity showed right more edematous than left, venous Doppler negative for any DVT Plan ? Continue Lasix 40 mg IV twice daily ? Continue carvedilol 6.25 mg p.o. twice daily ? Will keep K > 4 and Mg > 2, replete as needed ? Fluid restriction (1.5 L/day), daily weights, strict I's and O's ? Follow-up echo - Consulted cardiology appreciate recommendations #Acute on chronic kidney injury #Acute kidney injury #Chronic kidney disease, stage IV Concern of cardiorenal syndrome given history of CHF. Will diurese with 40 mg IV Lasix twice daily while monitoring kidney function. Plan ? Nephrology consulted, appreciate recommendations ? Will continue Lasix 40 mg twice daily -Nephrology ordered urine studies, will follow-up ? Avoid nephrotoxins, renally dose medications #Normocytic anemia, chronic Possibly due to underlying chronic kidney disease ? Monitor CBC in a.m. #Type 2 diabetes mellitus A1c 06/2024 7.3%. ? Patient takes glipizide and Januvia at home -Patient is refusing insulin -Sliding scale insulin ordered #Hypertension -Hold losartan in setting of ZELDA. ? Amlodipine 5 mg daily ? Carvedilol 6.25 mg p.o. twice daily #Hypothyroidism #Hyperlipidemia # Hypertriglyceridemia # Hypercholesterolemia ? Continue levothyroxine 175 mcg p.o. -Started on atorvastatin 40 mg at bedtime DVT prophylaxis: Heparin every 12 GI prophylaxis: Not indicated Diet: Cardiac carb consistent low Lines: Peripheral IV Code status: DNR Case discussed with Attending Dr. Gregory and Dr. Muller PGY2. Elmer Brooks PGY1 Attending Provider Attestation/Addendum I have discussed and was present for the essential components of the history, physical examination, diagnosis, and treatment plan with the resident. I agree with the patient's care as documented by the resident and amended herein by me. Topher Gregory, . Patient seen and evaluated this AM. In short, 69-year-old female with significant past medical history of HFrEF, EF 40%, hypertension, type 2 diabetes, hypothyroidism and chronic normocytic anemia, admitted for acute decompensated heart failure. Cardiology is on the case, presently diuresing with Lasix 40 mg IV daily, echocardiogram still pending. Patient does follow-up with kersey department supervisor, Dr. Flores who has been consulted. Strict I's and O's, low-sodium diet, daily weights ordered per cardiology, patient is also restarted on losartan and carvedilol as part of GDMT. Will continue to monitor closely while she is here Although this document has been carefully reviewed, there may still be some phonetic and other typographical errors. These errors are purely grammatical due to imperfections in the software program and should not be construed in any way to compromise the substance of the patient's medical care during this visit.
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
[2024-07-30 14:46] LABS: Creatinine,Random Urine 57 mg/dL (30-125); Protein Total, Random Urine 88 mg/dL (1-14); Sodium,Urine Random 94.5 mMol/L (20.0-110.0)
[2024-07-30 15:34] LABS: Respiratory Syncytial Virus Ag Negative (Negative)
[2024-07-30 15:35] LABS: Influenza A Ag Negative; Influenza B Ag Negative
--- NOTE | 2024-07-30 15:52 | PC.SS ---
Addendum entered by ALPA Cope 07/30/24 16:01: Rounding note: Patient is here for CHF. Plan is to direase the patient. Pending echo. Original Note: Patient is a 69 year old female admitted for heart failure exacerbation. Patient appeared alert and oriented. Patient confirmed demographic information. Patient informs she lives home, alone. Patient's emergency contact is her cousin: Debbie Perkins [phone]. Patient typically completes ADLs without assistance. She utilizes a cane and/or walker at home. Patient does not utilize home oxygen. PCP is Dr. Anupama Whaley. Pharmacy is [place], [place]. Patient plan's to return home upon discharge. Her cousin Debbie, to transport her home. vp celebrity services to stand by to address further needs. D/c plan: home Contact: cousinDebbie [phone]
--- NOTE | 2024-07-30 19:31 | PC.RT ---
SPUTUM OBTAINED AND TAKEN TO LAB.
[2024-07-30] MEDS: ATORVASTATIN CALCIUM 20 MG TABLET 40 MG PO (20:01)
[2024-07-31] VITALS (19 sets, daily range): BP systolic 131–155; BP diastolic 60–86; PULSE 65–71; RESP 14–97; TEMP 36.1–36.7; O2SAT 96–99
[2024-07-31] MEDS: FUROSEMIDE INJ 10 MG/ML 4ML VIAL 40 MG IVP ×2 (05:03→17:02)
[2024-07-31] MEDS: LEVOTHYROXINE SODIUM 25 MCG TABLET 175 MCG PO (05:03)
[2024-07-31 06:30] LABS: Basophils # (Auto) 0.1 Thou/mm3 (0.0-0.2); Basophils % (Auto) 1 % (0-2.5); Eosinophils # (Auto) 0.4 Thou/mm3 (0.0-0.5); Eosinophils % (Auto) 4 % (0-10); Immature Granulocytes % (Auto) 3 % (0-0); Immature Granulocytes Auto 0.28 Thou/mm3 (0.00-0.00); Lymphocytes # (Auto) 1.2 Thou/mm3 (1.0-4.8); Lymphocytes % (Auto) 13 % (10-50); Mean Corpuscular HGB Conc 32.5 g/dl (31.0-37.0); Mean Corpuscular Hemoglobin 31.6 pg (25.0-35.0); Mean Corpuscular Volume 97 fL (80-100); Monocytes # (Auto) 1.3 Thou/mm3 (0.0-0.8); Monocytes % (Auto) 15 % (0-12); Neutrophils # (Auto) 5.8 Thou/mm3 (1.8-7.7); Neutrophils % (Auto) 65 % (37-80); Nucleated Red Blood Cell # 0.03 Thou/mm3 (0.00-0.00); Nucleated Red Blood Cell % 0 /100 WBC (0); Platelet Count 217 Thou/mm3 (140-440); RDW Standard Deviation 55.2 fL (36.4-46.3); Red Blood Count 2.15 Miln/mm3 (4.00-5.20)
[2024-07-31 06:36] LABS: Hematocrit 20.9 % (36.0-46.0); Hemoglobin 6.8 g/dL (12.0-16.0)
[2024-07-31 07:23] LABS: Anion Gap 8 (7-16); BUN/Creatinine Ratio 33 Ratio (12-20); Blood Urea Nitrogen 62 mg/dL (9-23); Calcium 8.6 mg/dL (8.3-10.6); Carbon Dioxide 22.1 mMol/L (20.0-31.0); Chloride 109 mMol/L (98-107); Creatinine (Component) 1.9 mg/dL (0.6-1.3); Estimated Creatinine Clearance 32.9 mL/min (>60); Glucose 153 mg/dL (74-106); Magnesium 2.4 mg/dL (1.6-2.6); Osmolality,Calculated 298 (275-295); Phosphorous 4.4 mg/dL (2.4-5.1); Potassium 3.9 mMol/L (3.4-5.1); Sodium 139 mMol/L (136-145); eGFR 28 See Note
[2024-07-31] MEDS: amLODIPine BESYLATE 5 MG TABLET PO (08:27)
[2024-07-31] MEDS: carVEDILOL 3.125 MG TABLET 6.25 MG PO ×2 (08:28→17:02)
[2024-07-31] MEDS: LOSARTAN POTASSIUM 25 MG TABLET PO (08:29)
--- NOTE | 2024-07-31 08:51 | ESPR_ITS ---
Documentation for date of: 07/31/24 Subjective Subjective Interval history: Patient was seen and examined at bedside this AM. No acute exents overnight. Patient tolerating diet, adequate urine output and mentation is at baseline. Patient endorses improvement of SOB and generalized weakness. Now off of supplemental O2 Patient currently on Furosemide 40 mg IV BID, Recommend Furosemide 80 mg IV daily Fluid balance of +1440 cc in the past 24 hours, however it seems that output was not accurately charted. Recommend strict input output charting Patient's weight this morning is 213 pounds with her weight prior to admission 204 pounds [Dry weight 180-185lbs]. Continue to monitor daily weights. Potassium 3.9 and magnesium 2.4. Please maintain potassium greater than 3.5 as patient is CKD and magnesium greater than 2 at all times to prevent any arrhythmias. Echocardiogram completed on 07/[address] Flores Findings include: Mild LV dilation. Moderate systolic dysfunction with moderate global hypokinesis. Estimated EF 35-40% Stage II diastolic dysfunction. Mild LVH. Mild RV dilation. Normal RV function. Estimated RVSP 48mmHg. Moderate PAH. RAP 15. Moderate biatrial dilation. Mild MAC. Mild to moderate MR. Mild TR, PI. IVC mild dilation. Exam Vital Signs Temp Pulse Resp BP Pulse Ox O2 Del Method O2 Flow Rate 97.5 F 70 19 145/67 H 99 Nasal Cannula 1 07/31/24 07:59 07/31/24 08:29 07/31/24 08:04 07/31/24 08:29 07/31/24 08:04 07/31/24 07:59 07/31/24 08:04 Narrative Exam Constitutional Alert, oriented x 3 and comfortable. Elderly female on RA HEENT Vision grossly intact. Patent nares. Trachea midline Respiratory Chest normal on inspection and crackles at bases B/L Cardiovascular S1 and S2 audible, RRR. 2/6 systolic [place]umur at apex, no carotid bruit. JVD unable to assess. Abdominal Soft,obese and non tender to palpation in all quadrants. BS + Genitourinary No bladder tenderness, no flank pain. Normal to palpation Musculoskeletal Extremities tone within normal limits. 1+ LE edema, sacral edema + when lying down- improved Neurological CN II - XII grossly intact. Extremity motor and sensation grossly intact. Skin Warm, dry and intact. No apparent lesions. Psychiatric Patient has good affect, is cooperative Objective Labs 07/31/24 05:58 07/31/24 05:58 Labs: Laboratory Results - last 24 hr 07/30/24 07/30/24 07/30/24 08:46 13:30 14:30 WBC RBC Hgb Hct MCV MCH MCHC RDW Std Deviation Plt Count Neut % (Auto) Lymph % (Auto) [place] % (Auto) Eos % (Auto) Baso % (Auto) Neut # (Auto) Lymph # (Auto) [place] # (Auto) Eos # (Auto) Baso # (Auto) Immature Gran # (Auto) Absolute Nucleated RBC Immature Gran % Nucleated RBC % Sodium Potassium Chloride Carbon Dioxide Anion Gap BUN Creatinine Estim Creat Clear Calc eGFR BUN/Creatinine Ratio Glucose Calculated Osmolality Calcium Phosphorus Magnesium Troponin I 0.407 H* Ur Random Creatinine 57 U Random Total Protein 88 H Ur Random Sodium 94.5 Influenza A (Rapid) Negative Influenza B (Rapid) Negative RSV Rapid Negative 07/31/24 05:58 WBC 9.0 RBC 2.15 L Hgb 6.8 L* Hct 20.9 L* MCV 97 MCH 31.6 MCHC 32.5 RDW Std Deviation 55.2 H Plt Count 217 Neut % (Auto) 65 Lymph % (Auto) 13 [place] % (Auto) 15 H Eos % (Auto) 4 Baso % (Auto) 1 Neut # (Auto) 5.8 Lymph # (Auto) 1.2 [place] # (Auto) 1.3 H Eos # (Auto) 0.4 Baso # (Auto) 0.1 Immature Gran # (Auto) 0.28 H Absolute Nucleated RBC 0.03 H Immature Gran % 3 H Nucleated RBC % 0 Sodium 139 Potassium 3.9 Chloride 109 H Carbon Dioxide 22.1 Anion Gap 8 BUN 62 H Creatinine 1.9 H Estim Creat Clear Calc 32.9 L eGFR 28 L BUN/Creatinine Ratio 33 H Glucose 153 H Calculated Osmolality 298 H Calcium 8.6 Phosphorus 4.4 Magnesium 2.4 Troponin I Ur Random Creatinine U Random Total Protein Ur Random Sodium Influenza A (Rapid) Influenza B (Rapid) RSV Rapid Quality Measures Quality Measures none Advance care planning discussed with:: patient Assessment & Plan Assessment Current Active Medications: Generic Name Dose Route Start Last Admin Trade Name Freq PRN Reason Stop Dose Admin Acetaminophen 650 mg 07/29/24 22:41 07/30/24 01:38 Acetaminophen 325 Mg Tablet PO 08/28/24 22:40 650 mg Q6H PRN Administration PAIN OR FEVER > 101 Amlodipine Besylate 5 mg 07/29/24 22:50 07/31/24 08:27 Amlodipine Besylate 5 Mg Tablet PO 08/28/24 22:49 5 mg QDAY NGOC Administration Atorvastatin Calcium 40 mg 07/30/24 21:00 07/30/24 20:01 Atorvastatin Calcium 20 Mg Tablet PO 08/29/24 20:59 40 mg HS NGOC Administration Carvedilol 6.25 mg 07/30/24 08:00 07/31/24 08:28 Carvedilol 3.125 Mg Tablet PO 08/29/24 07:59 6.25 mg BIDWM NGOC Administration Dextrose 25 ml 07/29/24 22:45 Dextrose 50%-Water Inj 50 Ml Syringe IV 08/28/24 22:44 Q15MIN PRN BG 50-70 responsive npo pt Dextrose 50 ml 07/29/24 22:45 Dextrose 50%-Water Inj 50 Ml Syringe IV 08/28/24 22:44 Q15MIN PRN BG <50 OR BG <70 & pt unresponsive Furosemide 40 mg 07/29/24 23:00 07/31/24 05:03 Furosemide Inj 10 Mg/Ml 4ml Vial IVP 08/28/24 22:59 40 mg BIDD NGOC Administration Glucagon 1 mg 07/29/24 22:45 Glucagon Inj 1 Mg Vial IM Q15MIN PRN BG <70, and no IV access Heparin Sodium (Porcine) 5,000 unit 07/30/24 09:00 07/31/24 08:29 Heparin Sod Inj 5000 Unit/Ml Vial SC 08/13/24 08:59 Not Given Q12HR [facility] Insulin Human Lispro 0 unit 07/30/24 07:30 07/31/24 08:02 Insulin Lispro (Admelog) 1 Unit/0.01 Ml Unit SC 08/29/24 07:29 Not Given ACHS [facility] Protocol Levothyroxine Sodium 175 mcg 07/30/24 06:00 07/31/24 05:03 Levothyroxine Sodium 25 Mcg Tablet PO 08/29/24 05:59 175 mcg ACBR NGOC Administration Losartan Potassium 25 mg 07/31/24 09:00 07/31/24 08:29 Losartan Potassium 25 Mg Tablet PO 08/30/24 08:59 25 mg QDAY NGOC Administration Ondansetron HCl 4 mg 07/29/24 22:41 Ondansetron Inj 2 Mg/Ml Inj 2 Ml IV 08/28/24 22:40 Q6H PRN NAUSEA OR VOMITING Protocol Plan A 68-year-old female with a past medical history of 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 Patient was admitted for acute decompensated heart failure exacerbation and Cardiology was consulted. 1. ACS 2. NSTEMI type I versus type II On admission patient endorsed SOB at rest but denies having chest pain/pressure or palpitations. On exam she had 2+ sacral edema. BNP 1941 on admission. Troponin initially elevated at 0.212 subsequently up trended to 0.433 and currently downtrending at 0.407. EKG on admission showed sinus rhythm, rate [address] changes and normal VA intervals. Troponinemia most likely due to CHF exacerbation and supply demand mismatch. Plan: ? Recommend aspirin 81 mg p.o. daily ?No need to further trend troponin 3. Acute respiratory failure with hypoxia 4. Acute decompensated mixed systolic and diastolic heart failure exacerbation [40-45%] Etiology: Life stressor, medication noncompliance, influenza or RSV Patient experienced 1 day of SOB and generalized weakness prior to admission. On exam she had crackles at the lung bases bilaterally and sacral edema. BNP 194 and troponin elevated on admission Home diuretic Lasix 80 mg p.o. daily and dry weights between 180-185pounds. Her weight at home prior to admission yesterday was about 204 pounds. 20 pounds more than her normal weight. BNP elevated at 194 and higher than before in 2022 indicating fluid overload and possible CHF exacerbation Patient was admitted for acute decompensated heart failure exacerbation and Cardiology was consulted. Patient endorses improvement of SOB and generalized weakness. Now off of supplemental O2 Continue diuresis with furosemide 40 Mg IV twice daily Fluid balance of +1440 cc in the past 24 hours, however it seems that output was not accurately charted. Recommend strict input output charting Patient's weight this morning is 213 pounds. Continue to monitor daily weights. Potassium 3.9 and magnesium 2.4. Please maintain potassium greater than 3.5 as patient is CKD and magnesium greater than 2 at all times to prevent any arrhythmias. Influenza A and B and RSV from 07/30 were both negative. Sputum Gram stain from 07/30 grew 2+ GPC, culture pending Echocardiogram completed on 07/[address] Flores Findings include: Mild LV dilation. Moderate systolic dysfunction with moderate global hypokinesis. Estimated EF 35-40% Stage II diastolic dysfunction. Mild LVH. Mild RV dilation. Normal RV function. Estimated RVSP 48mmHg. Moderate PAH. RAP 15. Moderate biatrial dilation. Mild MAC. Mild to moderate MR. Mild TR, PI. IVC mild dilation. Plan: ? Strict input output charting ? 2 g sodium restricted diet ? Daily weights ? Recommend diuresis with furosemide 80 mg IV once daily ? Can also restart her losartan and carvedilol as part of GDMT. 5. Essential hypertension On admission BP 165/87. Home medication amlodipine 5 Mg p.o. daily,losartan 25 Mg p.o. daily, Coreg 6.25 Mg p.o. twice daily and furosemide 80 Mg p.o. daily. Currently BP 147/67. Plan: ? Continue with home medication - Recommend excellent control of BP with SBP < 140s 6. Chronic normocytic anemia From chart review baseline Hb between 9?10.0 On admission Hb 7.5, currently Hb 6.8 Recommend to transfuse with 1 unit PRBC 7. Hypothyroidism Patient's home medication levothyroxine 175mcg every other day and Levothyroxine 200mcg po every other day. Continue management as per primary team. 8. NIDDM type 2 [7.2] Most recent HbA1c from last month 7.2 %. Patient is on sitagliptin at home. Continue management as per primary team 9. History of scalp carcinoma s/p excision 2002 10. Morbid obesity Patient's dry weight is 180-185 lbs. Prior to admission her weight was 204 lbs BMI on admission 15.1, not accurately recorded. Recommend standing weight 11. Hyperlipidemia: LDL 139, TG 235 and cholestrol 212 - started lipitor 40 mg once daily - Jul 2024 repeat lipid profile with LFT every year. check lft in 3 months after starting statin 12. ZELDA on CKD stage IIIb Likely prerenal due to CHF exacerbation Patient's baseline Cr 1.6?1.9. On admission Cr 2.1 ---> Cr 1.9 which appears to be back to her baseline Renal ultrasound completed on 07/30 showed normal-sized kidneys, bilateral renal parenchymal scar formation, no hydronephrosis, no cysts or masses Continue management as per primary team and nephrology Continue rest of management as per primary team. We are grateful to be able to participate in Ms Ratliff's care. Thank you for the consult Plan of care discussed with attending Crtts, Dr Mark Ruiz MD PGY 1 Attending Provider Attestation/Addendum I have personally seen and examined the patient separately on the above date of service and discussed the plan of care with the resident. I reviewed the resident Dr. Ruiz consultation progress note and agree with the resident findings and plan in the note above and have also edited the documentation to reflect my findings and plan. Jeff Flores M.D. Interventional Cardiology
--- NOTE | 2024-07-31 10:18 | ESPR_ITS ---
Documentation for date of: 07/31/24 Subjective Subjective Interval history: Rayray Ratliff is a 69-year-old female with past medical history of HFmrEF (EF 40- 45%, 08/2023), hypertension, type 2 diabetes mellitus, hypothyroidism, and chronic normocytic anemia who presents to the ED with shortness of breath. Patient endorses progressive worsening of shortness of breath for the last week with associated bilateral lower extremity edema, but denies associated orthopnea, PND, and chest discomfort. She is followed outpatient by Dr. Flores. Her only other complaint is fecal incontinence and 2-3 episodes of nonbloody loose bowel movements. No fever, chills, abdominal pain, nausea, vomiting, or recent antibiotic use. Patient received 1 L bolus normal saline in the ED. ED labs significant for sodium 139, potassium 4.9, bicarb 17.7, BUN 66, creatinine 2.4, eGFR 21 . Baseline creatinine 1.6-2.0, baseline eGFR 30?35. Nephrology consulted for ZELDA on CKD in setting of CHF exacerbation. Patient seen and examined on the floors. Patient resting comfortably. Bilateral lower extremity edema, lungs clear to auscultation. 0 L output recorded. Patient unclear on home meds, med rec's pending, will follow-up. Labs today potassium 4.0, bicarb 18.8, BUN 60, creatinine 2.1, eGFR 25. Patient currently receiving IV Lasix for diuretics. 07/31: Patient seen and examined in telemetry. Patient resting comfortably in bed. No measured urine output. Patient hemoglobin 6.8, receiving 2 units PRBCs. Sodium 139, potassium 3.9, bicarb 22.1, BUN 16, creatinine 1.9, eGFR 28. Urine total protein 88, urine sodium 34.5, and creatinine 57. Renal ultrasound showed moderate bilateral renal parenchymal scar formation. Patient continued to receive Lasix. Exam Vital Signs Temp Pulse Resp BP Pulse Ox O2 Del Method O2 Flow Rate 97.5 F 70 19 145/67 H 99 Nasal Cannula 1 07/31/24 07:59 07/31/24 08:29 07/31/24 08:04 07/31/24 08:29 07/31/24 08:04 07/31/24 07:59 07/31/24 08:04 Narrative Exam PE: Gen: Well-developed and well-nourished. HEENT: NCAT, PERRLA, EOMI, MMM, anicteric conjunctivae. CVS: normal S1 and S2. RRR. No M/R/G. Resp: CTA B/L. No rhonchi, rales, crackles or wheezing. Abd: soft, non-tender, non-distended. MSK: Good ROM in BUE & BLE. No rash. Bilateral lower extremity edema. Neuro: CN II-XII grossly intact. Strength 5/5 in BUE & BLE. Alert and oriented x3. Objective Labs 07/31/24 05:58 07/31/24 05:58 Labs: Laboratory Results - last 24 hr 07/30/24 07/30/24 07/31/24 13:30 14:30 05:58 WBC 9.0 RBC 2.15 L Hgb 6.8 L* Hct 20.9 L* MCV 97 MCH 31.6 MCHC 32.5 RDW Std Deviation 55.2 H Plt Count 217 Neut % (Auto) 65 Lymph % (Auto) 13 [place] % (Auto) 15 H Eos % (Auto) 4 Baso % (Auto) 1 Neut # (Auto) 5.8 Lymph # (Auto) 1.2 [place] # (Auto) 1.3 H Eos # (Auto) 0.4 Baso # (Auto) 0.1 Immature Gran # (Auto) 0.28 H Absolute Nucleated RBC 0.03 H Immature Gran % 3 H Nucleated RBC % 0 Sodium 139 Potassium 3.9 Chloride 109 H Carbon Dioxide 22.1 Anion Gap 8 BUN 62 H Creatinine 1.9 H Estim Creat Clear Calc 32.9 L eGFR 28 L BUN/Creatinine Ratio 33 H Glucose 153 H Calculated Osmolality 298 H Calcium 8.6 Phosphorus 4.4 Magnesium 2.4 Ur Random Creatinine 57 U Random Total Protein 88 H Ur Random Sodium 94.5 Influenza A (Rapid) Negative Influenza B (Rapid) Negative RSV Rapid Negative Crossmatch Blood Bank Wristband ID 07/31/24 08:13 WBC RBC Hgb Hct MCV MCH MCHC RDW Std Deviation Plt Count Neut % (Auto) Lymph % (Auto) [place] % (Auto) Eos % (Auto) Baso % (Auto) Neut # (Auto) Lymph # (Auto) [place] # (Auto) Eos # (Auto) Baso # (Auto) Immature Gran # (Auto) Absolute Nucleated RBC Immature Gran % Nucleated RBC % Sodium Potassium Chloride Carbon Dioxide Anion Gap BUN Creatinine Estim Creat Clear Calc eGFR BUN/Creatinine Ratio Glucose Calculated Osmolality Calcium Phosphorus Magnesium Ur Random Creatinine U Random Total Protein Ur Random Sodium Influenza A (Rapid) Influenza B (Rapid) RSV Rapid Crossmatch See Detail Blood Bank Wristband ID Yes Quality Measures Quality Measures VTE prophylaxis Advance care planning discussed with:: patient Assessment & Plan Assessment Current Active Medications: Generic Name Dose Route Start Last Admin Trade Name Freq PRN Reason Stop Dose Admin Acetaminophen 650 mg 07/29/24 22:41 07/30/24 01:38 Acetaminophen 325 Mg Tablet PO 08/28/24 22:40 650 mg Q6H PRN Administration PAIN OR FEVER > 101 Amlodipine Besylate 5 mg 07/29/24 22:50 07/31/24 08:27 Amlodipine Besylate 5 Mg Tablet PO 08/28/24 22:49 5 mg QDAY NGOC Administration Atorvastatin Calcium 40 mg 07/30/24 21:00 07/30/24 20:01 Atorvastatin Calcium 20 Mg Tablet PO 08/29/24 20:59 40 mg HS NGOC Administration Carvedilol 6.25 mg 07/30/24 08:00 07/31/24 08:28 Carvedilol 3.125 Mg Tablet PO 08/29/24 07:59 6.25 mg BIDWM NGOC Administration Dextrose 25 ml 07/29/24 22:45 Dextrose 50%-Water Inj 50 Ml Syringe IV 08/28/24 22:44 Q15MIN PRN BG 50-70 responsive npo pt Dextrose 50 ml 07/29/24 22:45 Dextrose 50%-Water Inj 50 Ml Syringe IV 08/28/24 22:44 Q15MIN PRN BG <50 OR BG <70 & pt unresponsive Furosemide 40 mg 07/29/24 23:00 07/31/24 05:03 Furosemide Inj 10 Mg/Ml 4ml Vial IVP 08/28/24 22:59 40 mg BIDD NGOC Administration Glucagon 1 mg 07/29/24 22:45 Glucagon Inj 1 Mg Vial IM Q15MIN PRN BG <70, and no IV access Heparin Sodium (Porcine) 5,000 unit 07/30/24 09:00 07/31/24 08:29 Heparin Sod Inj 5000 Unit/Ml Vial SC 08/13/24 08:59 Not Given Q12HR [facility] Insulin Human Lispro 0 unit 07/30/24 07:30 07/31/24 08:02 Insulin Lispro (Admelog) 1 Unit/0.01 Ml Unit SC 08/29/24 07:29 Not Given ACHS [facility] Protocol Levothyroxine Sodium 175 mcg 07/30/24 06:00 07/31/24 05:03 Levothyroxine Sodium 25 Mcg Tablet PO 08/29/24 05:59 175 mcg ACBR NGOC Administration Losartan Potassium 25 mg 07/31/24 09:00 07/31/24 08:29 Losartan Potassium 25 Mg Tablet PO 08/30/24 08:59 25 mg QDAY NGOC Administration Ondansetron HCl 4 mg 07/29/24 22:41 Ondansetron Inj 2 Mg/Ml Inj 2 Ml IV 08/28/24 22:40 Q6H PRN NAUSEA OR VOMITING Protocol Plan 69-year-old female with past medical history of 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 #Acute on chronic kidney injury #Chronic kidney disease, stage IV Patient has history of CKD, baseline creatinine 1.6?2.0, baseline eGFR 30?35. On admission patient had BUN 66, creatinine 2.4, eGFR 21. Patient received 1 L normal saline bolus in ED before being initiated on IV Lasix for diuresis. Kidney function showed improvement: BUN 60, creatinine 2.1, eGFR 25. Renal ultrasound showed bilateral parenchymal scar formation. Urine studies showed total protein 88, creatinine 67, sodium 94.5. Kidney function continues to improve. Plan: -Avoid nephrotoxins -Renally dose meds -Monitor daily labs -Diuresis: Lasix 40 mg IV twice daily -Strict I's and O's #Acute hypoxic respiratory failure, secondary to #Acute CHF exacerbation #HFmrEF (EF 40-45%, 08/2023) #NSTEMI type II, likely demand ischemia #Normocytic anemia, chronic #Type 2 diabetes mellitus #Hypertension #Hypothyroidism Management as per primary team. DVT prophylaxis: Heparin GI prophylaxis: None Diet: Cardiac/carb consistent low Lines: Peripheral IV Code status: DNR Thank you for allowing to persist pain in the care of this patient. Plan of care discussed with attending Dr. Llanos. Romeo De Leon MD PGY-1 Attending Provider Attestation/Addendum patient seen and examined with resident physician Dr. De Leon. Note reviewed, agree with findings and recommendations with changes made. Patient with CHF exacerbation. Clinically she seems to be tad better today. Creatinine stable. Continue with diuretics.
--- NOTE | 2024-07-31 12:12 | PD.RESPRO ---
Documentation for date of: 07/31/24 Subjective Subjective Interval history: Patient seen at bedside. Patient is saturating well on room air, denies orthopnea. Will continue to monitor intake and output, fluid restriction 1500cc Patient's hemoglobin dropped to 6.8 Denies any hematuria, hematemesis and blood in stool. Patient's hemoglobin on admission was 7.1 anemia secondary to chronic disease. Patient follows up with [employer] cap [employer] hand Dr. Ramon with outpatient who recommended erythropoietin injections. Patient continues to refuse insulin. Risks explained. Consulted cardiology. Exam Vital Signs Temp Pulse Resp BP Pulse Ox O2 Del Method O2 Flow Rate 97.5 F 70 19 145/67 H 99 Nasal Cannula 1 07/31/24 07:59 07/31/24 08:29 07/31/24 08:04 07/31/24 08:29 07/31/24 08:04 07/31/24 07:59 07/31/24 08:04 Narrative Exam General: hirsutism, AOx3, laying flat in no acute distress, able to speak full sentences HEENT: NC/AT, mucous membranes moist, bilateral sclera anicteric Cardiovascular: regular rate and rhythm, S1/S2 present, no murmurs appreciated Pulmonary: clear to auscultation bilaterally, no rales/rhonchi/wheezes Abdominal: soft, non-tender, non-distended, no rebound/guarding, normal bowel sounds present Musculoskeletal: bilateral lower extremity edema R > L Skin: warm and dry, intact, no rashes Neuro: CN II-XII intact, no focal deficits Objective Labs 07/31/24 05:58 07/31/24 05:58 Labs: Laboratory Results - last 24 hr 07/30/24 07/30/24 07/31/24 13:30 14:30 05:58 WBC 9.0 RBC 2.15 L Hgb 6.8 L* Hct 20.9 L* MCV 97 MCH 31.6 MCHC 32.5 RDW Std Deviation 55.2 H Plt Count 217 Neut % (Auto) 65 Lymph % (Auto) 13 [place] % (Auto) 15 H Eos % (Auto) 4 Baso % (Auto) 1 Neut # (Auto) 5.8 Lymph # (Auto) 1.2 [place] # (Auto) 1.3 H Eos # (Auto) 0.4 Baso # (Auto) 0.1 Immature Gran # (Auto) 0.28 H Absolute Nucleated RBC 0.03 H Immature Gran % 3 H Nucleated RBC % 0 Sodium 139 Potassium 3.9 Chloride 109 H Carbon Dioxide 22.1 Anion Gap 8 BUN 62 H Creatinine 1.9 H Estim Creat Clear Calc 32.9 L eGFR 28 L BUN/Creatinine Ratio 33 H Glucose 153 H Calculated Osmolality 298 H Calcium 8.6 Phosphorus 4.4 Magnesium 2.4 Ur Random Creatinine 57 U Random Total Protein 88 H Ur Random Sodium 94.5 Influenza A (Rapid) Negative Influenza B (Rapid) Negative RSV Rapid Negative Blood Type Antibody Screen Crossmatch Blood Bank Wristband ID 07/31/24 08:13 WBC RBC Hgb Hct MCV MCH MCHC RDW Std Deviation Plt Count Neut % (Auto) Lymph % (Auto) [place] % (Auto) Eos % (Auto) Baso % (Auto) Neut # (Auto) Lymph # (Auto) [place] # (Auto) Eos # (Auto) Baso # (Auto) Immature Gran # (Auto) Absolute Nucleated RBC Immature Gran % Nucleated RBC % Sodium Potassium Chloride Carbon Dioxide Anion Gap BUN Creatinine Estim Creat Clear Calc eGFR BUN/Creatinine Ratio Glucose Calculated Osmolality Calcium Phosphorus Magnesium Ur Random Creatinine U Random Total Protein Ur Random Sodium Influenza A (Rapid) Influenza B (Rapid) RSV Rapid Blood Type O Positive Antibody Screen NEGATIVE Crossmatch See Detail Blood Bank Wristband ID Yes Quality Measures Quality Measures VTE prophylaxis Advance care planning discussed with:: patient Assessment & Plan Assessment Current Active Medications: Generic Name Dose Route Start Last Admin Trade Name Freq PRN Reason Stop Dose Admin Acetaminophen 650 mg 07/29/24 22:41 07/30/24 01:38 Acetaminophen 325 Mg Tablet PO 08/28/24 22:40 650 mg Q6H PRN Administration PAIN OR FEVER > 101 Amlodipine Besylate 5 mg 07/29/24 22:50 07/31/24 08:27 Amlodipine Besylate 5 Mg Tablet PO 08/28/24 22:49 5 mg QDAY NGOC Administration Atorvastatin Calcium 40 mg 07/30/24 21:00 07/30/24 20:01 Atorvastatin Calcium 20 Mg Tablet PO 08/29/24 20:59 40 mg HS NGOC Administration Carvedilol 6.25 mg 07/30/24 08:00 07/31/24 08:28 Carvedilol 3.125 Mg Tablet PO 08/29/24 07:59 6.25 mg BIDWM NGOC Administration Dextrose 25 ml 07/29/24 22:45 Dextrose 50%-Water Inj 50 Ml Syringe IV 08/28/24 22:44 Q15MIN PRN BG 50-70 responsive npo pt Dextrose 50 ml 07/29/24 22:45 Dextrose 50%-Water Inj 50 Ml Syringe IV 08/28/24 22:44 Q15MIN PRN BG <50 OR BG <70 & pt unresponsive Furosemide 40 mg 07/29/24 23:00 07/31/24 05:03 Furosemide Inj 10 Mg/Ml 4ml Vial IVP 08/28/24 22:59 40 mg BIDD NGOC Administration Glucagon 1 mg 07/29/24 22:45 Glucagon Inj 1 Mg Vial IM Q15MIN PRN BG <70, and no IV access Heparin Sodium (Porcine) 5,000 unit 07/30/24 09:00 07/31/24 08:29 Heparin Sod Inj 5000 Unit/Ml Vial SC 08/13/24 08:59 Not Given Q12HR NGOC Insulin Human Lispro 0 unit 07/30/24 07:30 07/31/24 11:35 Insulin Lispro (Admelog) 1 Unit/0.01 Ml Unit SC 08/29/24 07:29 Not Given ACHS [facility] Protocol Levothyroxine Sodium 175 mcg 07/30/24 06:00 07/31/24 05:03 Levothyroxine Sodium 25 Mcg Tablet PO 08/29/24 05:59 175 mcg ACBR NGOC Administration Losartan Potassium 25 mg 07/31/24 09:00 07/31/24 08:29 Losartan Potassium 25 Mg Tablet PO 08/30/24 08:59 25 mg QDAY NGOC Administration Ondansetron HCl 4 mg 07/29/24 22:41 Ondansetron Inj 2 Mg/Ml Inj 2 Ml IV 08/28/24 22:40 Q6H PRN NAUSEA OR VOMITING Protocol Plan Assessment and plan: Summary: Rayray Ratliff is a 69-year-old female with past medical history of 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 No orthopnea, PND, worsening BLE edema. Patient was started on 2 L nasal cannula as patient was hypoxic secondary to CHF exacerbation Patient's troponins were uptrending on admission, eventually down trended BNP 1941 on admission. Bilateral lower extremity showed right more edematous than left, venous Doppler negative for any DVT Plan ? Continue Lasix 40 mg IV twice daily ? Continue carvedilol 6.25 mg p.o. twice daily ? Will keep K > 4 and Mg > 2, replete as needed ? Fluid restriction (1.5 L/day), daily weights, strict I's and O's ? Follow-up echo - Consulted cardiology appreciate recommendations #Acute on chronic kidney injury #Acute kidney injury #Chronic kidney disease, stage IV Concern of cardiorenal syndrome given history of CHF. Will diurese with 40 mg IV Lasix twice daily while monitoring kidney function. Plan ? Nephrology consulted, appreciate recommendations ? Will continue Lasix 40 mg twice daily ? Avoid nephrotoxins, renally dose medications #Normocytic anemia, chronic Possibly due to underlying chronic kidney disease Hemoglobin dropped to 6.8 - Transfuse 1 unit PRBC - Follow posttransfusion H&H ? Monitor CBC in a.m. #Type 2 diabetes mellitus A1c 06/2024 7.3%. ? Patient takes glipizide and Januvia at home - Patient is refusing insulin - Sliding scale insulin ordered #Hypertension - Losartan 25 mg p.o. daily ? Amlodipine 5 mg daily ? Carvedilol 6.25 mg p.o. twice daily #Hypothyroidism #Hyperlipidemia # Hypertriglyceridemia # Hypercholesterolemia ? Continue levothyroxine 175 mcg p.o. - Continue atorvastatin 40 mg at bedtime DVT prophylaxis: Heparin every 12 GI prophylaxis: Not indicated Diet: Cardiac carb consistent low Lines: Peripheral IV Code status: DNR Case discussed with Attending Dr. Garfield Brooks PGY1 Attending Provider Attestation/Addendum I reviewed labs, imaging, EKG, home medications and prior available records. Face to face evaluation was performed by me. I have personally examined the patient and discussed assessment and plan with the IM team. I reviewed the resident note and agree with the plan with exceptions as below. Acute hypoxic respiratory failure: In the setting of CHF exacerbation. Management as below. Wean off oxygen as tolerated. CHF exacerbation: In the setting of history of heart failure with mildly reduced EF of 40 to 45%. Continue IV Lasix 40 mg IV twice daily. Monitor I's and O's. ZELDA on CKD: Creatinine is improving. Possibly cardiorenal. Diuresis as above. Monitor kidney function. Avoid nephrotoxins. Acute anemia: New complication. Possibly worsening anemia of chronic disease. Transfuse 1 PRBC. Monitor H&H posttransfusion.
--- NOTE | 2024-07-31 16:24 | PC.NURSE ---
per DR. luna, only 1 unit of PRBC is needed at this time.
[2024-07-31] MEDS: ACETAMINOPHEN 325 MG TABLET 650 MG PO (20:48)
[2024-07-31] MEDS: HEPARIN SOD INJ 5000 UNIT/ML VIAL SC (20:49)
[2024-07-31] MEDS: ATORVASTATIN CALCIUM 20 MG TABLET 40 MG PO (20:49)
[2024-08-01] VITALS (11 sets, daily range): BP systolic 131–150; BP diastolic 66–88; PULSE 63–78; RESP 15–97; TEMP 35.9–36.6; O2SAT 95–100
[2024-08-01 05:54] LABS: Basophils # (Auto) 0.1 Thou/mm3 (0.0-0.2); Basophils % (Auto) 1 % (0-2.5); Eosinophils # (Auto) 0.4 Thou/mm3 (0.0-0.5); Eosinophils % (Auto) 5 % (0-10); Hematocrit 22.9 % (36.0-46.0); Immature Granulocytes % (Auto) 3 % (0-0); Immature Granulocytes Auto 0.22 Thou/mm3 (0.00-0.00); Lymphocytes % (Auto) 12 % (10-50); Mean Corpuscular HGB Conc 32.3 g/dl (31.0-37.0); Mean Corpuscular Hemoglobin 31.2 pg (25.0-35.0); Mean Corpuscular Volume 97 fL (80-100); Monocytes # (Auto) 1.3 Thou/mm3 (0.0-0.8); Monocytes % (Auto) 16 % (0-12); Neutrophils # (Auto) 5.4 Thou/mm3 (1.8-7.7); Neutrophils % (Auto) 64 % (37-80); Nucleated Red Blood Cell % 0 /100 WBC (0); Platelet Count 218 Thou/mm3 (140-440); RDW Standard Deviation 56.4 fL (36.4-46.3); Red Blood Count 2.37 Miln/mm3 (4.00-5.20); White Blood Count 8.4 Thou/mm3 (3.6-11.0)
[2024-08-01 05:55] LABS: Hemoglobin 7.4 g/dL (12.0-16.0)
[2024-08-01] MEDS: FUROSEMIDE INJ 10 MG/ML 4ML VIAL 40 MG IVP ×2 (06:18→17:21)
[2024-08-01] MEDS: LEVOTHYROXINE SODIUM 25 MCG TABLET 175 MCG PO (06:18)
[2024-08-01 06:22] LABS: Anion Gap 7 (7-16); BUN/Creatinine Ratio 36 Ratio (12-20); Blood Urea Nitrogen 62 mg/dL (9-23); Calcium 8.4 mg/dL (8.3-10.6); Carbon Dioxide 21.8 mMol/L (20.0-31.0); Chloride 110 mMol/L (98-107); Creatinine (Component) 1.7 mg/dL (0.6-1.3); Estimated Creatinine Clearance 36.1 mL/min (>60); Glucose 180 mg/dL (74-106); Magnesium 2.3 mg/dL (1.6-2.6); Osmolality,Calculated 300 (275-295); Phosphorous 4.3 mg/dL (2.4-5.1); Sodium 139 mMol/L (136-145); eGFR 32 See Note
[2024-08-01] MEDS: carVEDILOL 3.125 MG TABLET 6.25 MG PO ×2 (08:32→17:21)
[2024-08-01] MEDS: LOSARTAN POTASSIUM 25 MG TABLET PO (08:32)
[2024-08-01] MEDS: amLODIPine BESYLATE 5 MG TABLET PO (08:32)
[2024-08-01] MEDS: HEPARIN SOD INJ 5000 UNIT/ML VIAL SC ×2 (08:32→20:41)
--- NOTE | 2024-08-01 09:34 | ESPR_ITS ---
Documentation for date of: 08/01/24 Subjective Subjective Interval history: Rayray Ratliff is a 69-year-old female with past medical history of HFmrEF (EF 40- 45%, 08/2023), hypertension, type 2 diabetes mellitus, hypothyroidism, and chronic normocytic anemia who presents to the ED with shortness of breath. Patient endorses progressive worsening of shortness of breath for the last week with associated bilateral lower extremity edema, but denies associated orthopnea, PND, and chest discomfort. She is followed outpatient by Dr. Flores. Her only other complaint is fecal incontinence and 2-3 episodes of nonbloody loose bowel movements. No fever, chills, abdominal pain, nausea, vomiting, or recent antibiotic use. Patient received 1 L bolus normal saline in the ED. ED labs significant for sodium 139, potassium 4.9, bicarb 17.7, BUN 66, creatinine 2.4, eGFR 21 . Baseline creatinine 1.6-2.0, baseline eGFR 30?35. Nephrology consulted for ZELDA on CKD in setting of CHF exacerbation. Patient seen and examined on the floors. Patient resting comfortably. Bilateral lower extremity edema, lungs clear to auscultation. 0 L output recorded. Patient unclear on home meds, med rec's pending, will follow-up. Labs today potassium 4.0, bicarb 18.8, BUN 60, creatinine 2.1, eGFR 25. Patient currently receiving IV Lasix for diuretics. 07/31: Patient seen and examined in telemetry. Patient resting comfortably in bed. No measured urine output. Patient hemoglobin 6.8, receiving 2 units PRBCs. Sodium 139, potassium 3.9, bicarb 22.1, BUN 16, creatinine 1.9, eGFR 28. Urine total protein 88, urine sodium 34.5, and creatinine 57. Renal ultrasound showed moderate bilateral renal parenchymal scar formation. Patient continued to receive Lasix. 08/01, patient seen and examined in telemetry. Patient was comfortable in bed, feels well. No measured urine output, patient reports producing good urine in diapers. Sodium 139, potassium 4.0, bicarb 21.8, BUN 60, creatinine 1.7, GFR 32. Hemoglobin 7.4. Exam Vital Signs Temp Pulse Resp BP Pulse Ox O2 Del Method O2 Flow Rate 96.7 F L 65 16 150/68 H 99 Room Air 0 08/01/24 08:00 08/01/24 08:32 08/01/24 08:12 08/01/24 08:32 08/01/24 08:00 08/01/24 08:00 08/01/24 08:00 Narrative Exam PE: Gen: Well-developed and well-nourished. HEENT: NCAT, PERRLA, EOMI, MMM, anicteric conjunctivae. CVS: normal S1 and S2. RRR. No M/R/G. Resp: CTA B/L. No rhonchi, rales, crackles or wheezing. Abd: soft, non-tender, non-distended. MSK: Good ROM in BUE & BLE. No rash. Bilateral lower extremity edema, improved. Neuro: CN II-XII grossly intact. Strength 5/5 in BUE & BLE. Alert and oriented x3. Objective Labs 08/01/24 05:08 08/01/24 05:08 Labs: Laboratory Results - last 24 hr 07/31/24 08/01/24 08:13 05:08 WBC 8.4 RBC 2.37 L Hgb 7.4 L Hct 22.9 L MCV 97 MCH 31.2 MCHC 32.3 RDW Std Deviation 56.4 H Plt Count 218 Neut % (Auto) 64 Lymph % (Auto) 12 [place] % (Auto) 16 H Eos % (Auto) 5 Baso % (Auto) 1 Neut # (Auto) 5.4 Lymph # (Auto) 1.0 [place] # (Auto) 1.3 H Eos # (Auto) 0.4 Baso # (Auto) 0.1 Immature Gran # (Auto) 0.22 H Absolute Nucleated RBC 0.00 Immature Gran % 3 H Nucleated RBC % 0 Sodium 139 Potassium 4.0 Chloride 110 H Carbon Dioxide 21.8 Anion Gap 7 BUN 62 H Creatinine 1.7 H Estim Creat Clear Calc 36.1 L eGFR 32 L BUN/Creatinine Ratio 36 H Glucose 180 H Calculated Osmolality 300 H Calcium 8.4 Phosphorus 4.3 Magnesium 2.3 Blood Type O Positive Antibody Screen NEGATIVE Crossmatch See Detail Blood Bank Wristband ID Yes Quality Measures Quality Measures VTE prophylaxis Advance care planning discussed with:: patient Assessment & Plan Assessment Current Active Medications: Generic Name Dose Route Start Last Admin Trade Name Freq PRN Reason Stop Dose Admin Acetaminophen 650 mg 07/29/24 22:41 07/31/24 20:48 Acetaminophen 325 Mg Tablet PO 08/28/24 22:40 650 mg Q6H PRN Administration PAIN OR FEVER > 101 Amlodipine Besylate 5 mg 07/29/24 22:50 08/01/24 08:32 Amlodipine Besylate 5 Mg Tablet PO 08/28/24 22:49 5 mg QDAY NGOC Administration Atorvastatin Calcium 40 mg 07/30/24 21:00 07/31/24 20:49 Atorvastatin Calcium 20 Mg Tablet PO 08/29/24 20:59 40 mg HS NGOC Administration Carvedilol 6.25 mg 07/30/24 08:00 08/01/24 08:32 Carvedilol 3.125 Mg Tablet PO 08/29/24 07:59 6.25 mg BIDWM NGOC Administration Dextrose 25 ml 07/29/24 22:45 Dextrose 50%-Water Inj 50 Ml Syringe IV 08/28/24 22:44 Q15MIN PRN BG 50-70 responsive npo pt Dextrose 50 ml 07/29/24 22:45 Dextrose 50%-Water Inj 50 Ml Syringe IV 08/28/24 22:44 Q15MIN PRN BG <50 OR BG <70 & pt unresponsive Furosemide 40 mg 07/29/24 23:00 08/01/24 06:18 Furosemide Inj 10 Mg/Ml 4ml Vial IVP 08/28/24 22:59 40 mg BIDD NGOC Administration Glucagon 1 mg 07/29/24 22:45 Glucagon Inj 1 Mg Vial IM Q15MIN PRN BG <70, and no IV access Heparin Sodium (Porcine) 5,000 unit 07/30/24 09:00 08/01/24 08:32 Heparin Sod Inj 5000 Unit/Ml Vial SC 08/13/24 08:59 5,000 unit Q12HR NGOC Administration Insulin Human Lispro 0 unit 07/30/24 07:30 08/01/24 07:35 Insulin Lispro (Admelog) 1 Unit/0.01 Ml Unit SC 08/29/24 07:29 Not Given ACHS [facility] Protocol Levothyroxine Sodium 175 mcg 07/30/24 06:00 08/01/24 06:18 Levothyroxine Sodium 25 Mcg Tablet PO 08/29/24 05:59 175 mcg ACBR NGOC Administration Losartan Potassium 25 mg 07/31/24 09:00 11/20/24 08:32 Losartan Potassium 25 Mg Tablet PO 08/30/24 08:59 25 mg QDAY NGOC Administration Ondansetron HCl 4 mg 07/29/24 22:41 Ondansetron Inj 2 Mg/Ml Inj 2 Ml IV 08/28/24 22:40 Q6H PRN NAUSEA OR VOMITING Protocol Plan 69-year-old female with past medical history of 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 #Acute on chronic kidney injury #Chronic kidney disease, stage IV Patient has history of CKD, baseline creatinine 1.6?2.0, baseline eGFR 30?35. On admission patient had BUN 66, creatinine 2.4, eGFR 21. Patient received 1 L normal saline bolus in ED before being initiated on IV Lasix for diuresis. Kidney function showed improvement: BUN 60, creatinine 2.1, eGFR 25. Renal ultrasound showed bilateral parenchymal scar formation. Urine studies showed total protein 88, creatinine 67, sodium 94.5. Kidney function continues to improve. Patient reports subjective improvement in symptoms. 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 DVT prophylaxis: Heparin GI prophylaxis: None Diet: Cardiac/carb consistent low Lines: Peripheral IV Code status: DNR Thank you for allowing to persist pain in the care of this patient. Plan of care discussed with attending Dr. Llanos. Romeo De Leon MD PGY-1 Attending Provider Attestation/Addendum Patient seen and examined with resident physician Dr. De Leon. Note reviewed, agree with findings and recommendations. BUN and creatinine slightly better. Patient admitted with CHF exacerbation. Shortness of breath better.
--- NOTE | 2024-08-01 10:18 | PD.RESPRO ---
Documentation for date of: 08/01/24 Subjective Subjective Interval history: Patient was seen and examined at bedside this AM. No acute exents overnight. Patient tolerating diet, adequate urine output and mentation is at baseline. Patient endorses improvement of SOB and generalized weakness. Now off of supplemental O2 Patient did not get out of bed or ambulate since this admission due to not having socks and the floor being cold. Recommend to get patient out of bed today and ambulate. Patient currently on Furosemide 40 mg IV BID, Recommend Furosemide 80 mg IV daily Fluid balance of +1580 cc in the past 24 hours, however it seems that output is still not being accurately charted. Recommend strict input output charting Patient's weight this morning is 207 pounds with her weight yesterday 213 pounds [Dry weight 180-185lbs]. 6 lbs of fluid diuresis/24 hours. Continue to monitor daily weights. Potassium 4 and magnesium 2.3. Please maintain potassium greater than 3.5 as patient is CKD and magnesium greater than 2 at all times to prevent any arrhythmias. Patient was transfused with 1 unit PRBC yesterday and currently Hb stable at 7.4 up from 6.8. Patient needs complete anemia workup including the iron studies, B12, folate, peripheral smear, stool occult, LDH as well as haptoglobin as her hemoglobin continues to decrease. Her hemoglobin was stable around 10 last year Exam Vital Signs Temp Pulse Resp BP Pulse Ox O2 Del Method O2 Flow Rate 96.7 F L 65 16 150/68 H 99 Room Air 0 08/01/24 08:00 08/01/24 08:32 08/01/24 08:12 08/01/24 08:32 08/01/24 08:00 08/01/24 08:00 08/01/24 08:00 Narrative Exam Constitutional Alert, oriented x 3 and comfortable. Elderly female on RA HEENT Vision grossly intact. Patent nares. Trachea midline Respiratory Chest normal on inspection and crackles at bases B/L Cardiovascular S1 and S2 audible, RRR. 2/6 systolic [place] at apex, no carotid bruit. JVD unable to assess. Abdominal Soft,obese and non tender to palpation in all quadrants. BS + Genitourinary No bladder tenderness, no flank pain. Normal to palpation Musculoskeletal Extremities tone within normal limits. No LE edema, Hip edema 1+, sacral edema + when lying down- improved Neurological CN II - XII grossly intact. Extremity motor and sensation grossly intact. Skin Warm, dry and intact. No apparent lesions. Psychiatric Patient has good affect, is cooperative Objective Labs 08/01/24 05:08 08/01/24 05:08 Labs: Laboratory Results - last 24 hr 07/31/24 08/01/24 08:13 05:08 WBC 8.4 RBC 2.37 L Hgb 7.4 L Hct 22.9 L MCV 97 MCH 31.2 MCHC 32.3 RDW Std Deviation 56.4 H Plt Count 218 Neut % (Auto) 64 Lymph % (Auto) 12 [place] % (Auto) 16 H Eos % (Auto) 5 Baso % (Auto) 1 Neut # (Auto) 5.4 Lymph # (Auto) 1.0 [place] # (Auto) 1.3 H Eos # (Auto) 0.4 Baso # (Auto) 0.1 Immature Gran # (Auto) 0.22 H Absolute Nucleated RBC 0.00 Immature Gran % 3 H Nucleated RBC % 0 Sodium 139 Potassium 4.0 Chloride 110 H Carbon Dioxide 21.8 Anion Gap 7 BUN 62 H Creatinine 1.7 H Estim Creat Clear Calc 36.1 L eGFR 32 L BUN/Creatinine Ratio 36 H Glucose 180 H Calculated Osmolality 300 H Calcium 8.4 Phosphorus 4.3 Magnesium 2.3 Blood Type O Positive Antibody Screen NEGATIVE Crossmatch See Detail Blood Bank Wristband ID Yes Quality Measures Quality Measures VTE prophylaxis Advance care planning discussed with:: patient Assessment & Plan Assessment Current Active Medications: Generic Name Dose Route Start Last Admin Trade Name Freq PRN Reason Stop Dose Admin Acetaminophen 650 mg 07/29/24 22:41 07/31/24 20:48 Acetaminophen 325 Mg Tablet PO 08/28/24 22:40 650 mg Q6H PRN Administration PAIN OR FEVER > 101 Amlodipine Besylate 5 mg 07/29/24 22:50 08/01/24 08:32 Amlodipine Besylate 5 Mg Tablet PO 08/28/24 22:49 5 mg QDAY NGOC Administration Atorvastatin Calcium 40 mg 07/30/24 21:00 07/31/24 20:49 Atorvastatin Calcium 20 Mg Tablet PO 08/29/24 20:59 40 mg HS NGOC Administration Carvedilol 6.25 mg 07/30/24 08:00 08/01/24 08:32 Carvedilol 3.125 Mg Tablet PO 08/29/24 07:59 6.25 mg BIDWM NGOC Administration Dextrose 25 ml 07/29/24 22:45 Dextrose 50%-Water Inj 50 Ml Syringe IV 08/28/24 22:44 Q15MIN PRN BG 50-70 responsive npo pt Dextrose 50 ml 07/29/24 22:45 Dextrose 50%-Water Inj 50 Ml Syringe IV 08/28/24 22:44 Q15MIN PRN BG <50 OR BG <70 & pt unresponsive Furosemide 40 mg 07/29/24 23:00 08/01/24 06:18 Furosemide Inj 10 Mg/Ml 4ml Vial IVP 08/28/24 22:59 40 mg BIDD NGOC Administration Glucagon 1 mg 07/29/24 22:45 Glucagon Inj 1 Mg Vial IM Q15MIN PRN BG <70, and no IV access Heparin Sodium (Porcine) 5,000 unit 07/30/24 09:00 08/01/24 08:32 Heparin Sod Inj 5000 Unit/Ml Vial SC 08/13/24 08:59 5,000 unit Q12HR NGOC Administration Insulin Human Lispro 0 unit 07/30/24 07:30 08/01/24 07:35 Insulin Lispro (Admelog) 1 Unit/0.01 Ml Unit SC 08/29/24 07:29 Not Given ACHS [facility] Protocol Levothyroxine Sodium 125 mcg/ 175 mcg 08/02/24 06:00 Levothyroxine Sodium 50 mcg PO 08/29/24 05:59 ACBR NGOC Losartan Potassium 25 mg 07/31/24 09:00 08/01/24 08:32 Losartan Potassium 25 Mg Tablet PO 08/30/24 08:59 25 mg QDAY NGOC Administration Ondansetron HCl 4 mg 07/29/24 22:41 Ondansetron Inj 2 Mg/Ml Inj 2 Ml IV 08/28/24 22:40 Q6H PRN NAUSEA OR VOMITING Protocol Plan A 68-year-old female with a past medical history of 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 Patient was admitted for acute decompensated heart failure exacerbation and Cardiology was consulted. 1. ACS - ruled out 2. NSTEMI type II On admission patient endorsed SOB at rest but denies having chest pain/pressure or palpitations. On exam she had 2+ sacral edema. BNP 1941 on admission. Troponin initially elevated at 0.212 subsequently up trended to 0.433 and currently downtrending at 0.407. EKG on admission showed sinus rhythm, rate [address] changes and normal IN intervals. Troponinemia most likely due to CHF exacerbation with supply demand mismatch. Plan: ? Recommend aspirin 81 mg p.o. daily ? No need to further trend troponin and no need for heparin infusion 3. Acute respiratory failure with hypoxia - resolved 4. Acute decompensated mixed systolic and diastolic heart failure exacerbation [40-45%] Etiology: Life stressor, medication noncompliance, influenza or RSV Patient experienced 1 day of SOB and generalized weakness prior to admission. On exam she had crackles at the lung bases bilaterally and sacral edema. BNP 194 and troponin elevated on admission Home diuretic Lasix 80 mg p.o. daily and dry weights between 180-185pounds. Her weight at home prior to admission yesterday was about 204 pounds. 20 pounds more than her normal weight. BNP elevated at 194 and higher than before in 2022 indicating fluid overload and possible CHF exacerbation Patient was admitted for acute decompensated heart failure exacerbation and Cardiology was consulted. Patient endorses improvement of SOB and generalized weakness. Now off of supplemental O2 Patient did not get out of bed or ambulate since this admission due to not having socks and the floor being cold. Recommend to get patient out of bed today and ambulate. Patient currently on Furosemide 40 mg IV BID, Recommend Furosemide 80 mg IV daily Fluid balance of +1580 cc in the past 24 hours, however it seems that output is still not being accurately charted. Recommend strict input output charting Patient's weight this morning is 207 pounds with her weight yesterday 213 pounds [Dry weight 180-185lbs]. 6 lbs of fluid diuresis/24 hours. Continue to monitor daily weights. Potassium 4 and magnesium 2.3. Please maintain potassium greater than 3.5 as patient is CKD and magnesium greater than 2 at all times to prevent any arrhythmias. Influenza A and B and RSV from 07/30 were both negative. Sputum Gram stain from 07/30 grew 2+ GPC Echocardiogram completed on 07/[address] Flores Findings include: Mild LV dilation. Moderate systolic dysfunction with moderate global hypokinesis. Estimated EF 35-40% Stage II diastolic dysfunction. Mild LVH. Mild RV dilation. Normal RV function. Estimated RVSP 48mmHg. Moderate PAH. RAP 15. Moderate biatrial dilation. Mild MAC. Mild to moderate MR. Mild TR, PI. IVC mild dilation. Plan: ? Strict input output charting ? 2 g sodium restricted diet ? Daily weights - Recommend to get patient ambulating today either with nurses assistance or PT ? Recommend diuresis with furosemide 80 mg IV once daily ? Continue her losartan and carvedilol as part of GDMT. 5. Essential hypertension On admission BP 165/87. Home medication amlodipine 5 Mg p.o. daily,losartan 25 Mg p.o. daily, Coreg 6.25 Mg p.o. twice daily and furosemide 80 Mg p.o. daily. Currently BP 150/68 Plan: ? Continue with home medication and titrate as necessary - Recommend excellent control of BP with SBP < 140s 6. Chronic normocytic anemia From chart review baseline Hb between 9?10.0 On admission Hb 7.5 Patient was transfused with 1 unit PRBC yesterday and currently Hb stable at 7.4 up from 6.8 Patient was transfused with 1 unit PRBC yesterday and currently Hb stable at 7.4 up from 6.8. Patient needs complete anemia workup including the iron studies, B12, folate, peripheral smear, stool occult, LDH as well as haptoglobin as her hemoglobin continues to decrease. Her hemoglobin was stable around 10 last year 7. Hypothyroidism Patient's home medication levothyroxine 175mcg every other day and Levothyroxine 200mcg po every other day. Continue management as per primary team. 8. NIDDM type 2 [7.2] Most recent HbA1c from last month 7.2 %. Patient is on sitagliptin at home. Continue management as per primary team 9. History of scalp carcinoma s/p excision 2002 10. Morbid obesity Patient's dry weight is 180-185 lbs. Prior to admission her weight was 204 lbs BMI on admission 15.1, not accurately recorded. Recommend standing weight 11. Hyperlipidemia: LDL 139, TG 235 and cholestrol 212 - started lipitor 40 mg once daily - Jul 2024 repeat lipid profile with LFT every year. check lft in 3 months after starting statin 12. ZELDA on CKD stage IIIb Likely prerenal due to CHF exacerbation Patient's baseline Cr 1.6?1.9. On admission Cr 2.1 ---> Cr 1.7 which appears to be back to her baseline Renal ultrasound completed on 07/30 showed normal-sized kidneys, bilateral renal parenchymal scar formation, no hydronephrosis, no cysts or masses Continue management as per primary team and nephrology Continue rest of management as per primary team. We are grateful to be able to participate in Ms Ratliff's care. Thank you for the consult Plan of care discussed with attending Electronic Scale Tester, Dr Mark Ruiz MD PGY 1 Attending Provider Attestation/Addendum I have personally seen and examined the patient separately on the above date of service and discussed the plan of care with the resident. I reviewed the resident Dr. Ruiz consultation progress note and agree with the resident findings and plan in the note above and have also edited the documentation to reflect my findings and plan. Jeff Flores M.D. Interventional Cardiology
--- NOTE | 2024-08-01 10:28 | PC.SS ---
Follow up note: Cultures were positive for bacteria. Waiting for cardio recommendations. Pt will return home upon dc.
--- NOTE | 2024-08-01 15:28 | ESPR_ITS ---
Documentation for date of: 08/01/24 Subjective Subjective Interval history: Patient was seen at bedside No acute events overnight. Patient reports improvement of SOB and generalized weakness. Saturating well on room air Will continue diuresis for 1 more day per cardiology recommendations. Will follow anemia workup in a.m. Patient was transfused with 1 unit PRBC yesterday and hemoglobin stable at 7.4. Will continue to monitor patient. Exam Vital Signs Temp Pulse Resp BP Pulse Ox O2 Del Method O2 Flow Rate 97.4 F 64 15 132/66 H 100 Room Air 0 08/01/24 12:00 08/01/24 12:00 08/01/24 12:00 08/01/24 12:00 08/01/24 12:00 08/01/24 12:00 08/01/24 12:00 Narrative Exam General: hirsutism, AOx3, laying flat in no acute distress, able to speak full sentences HEENT: NC/AT, mucous membranes moist, bilateral sclera anicteric Cardiovascular: regular rate and rhythm, S1/S2 present, no murmurs appreciated Pulmonary: clear to auscultation bilaterally, no rales/rhonchi/wheezes Abdominal: soft, non-tender, non-distended, no rebound/guarding, normal bowel sounds present Musculoskeletal: bilateral lower extremity edema R > L Skin: warm and dry, intact, no rashes Neuro: CN II-XII intact, no focal deficits Objective Labs 08/02/24 05:41 08/02/24 05:41 Labs: Laboratory Results - last 24 hr 07/31/24 08/01/24 08:13 05:08 WBC 8.4 RBC 2.37 L Hgb 7.4 L Hct 22.9 L MCV 97 MCH 31.2 MCHC 32.3 RDW Std Deviation 56.4 H Plt Count 218 Neut % (Auto) 64 Lymph % (Auto) 12 [place] % (Auto) 16 H Eos % (Auto) 5 Baso % (Auto) 1 Neut # (Auto) 5.4 Lymph # (Auto) 1.0 [place] # (Auto) 1.3 H Eos # (Auto) 0.4 Baso # (Auto) 0.1 Immature Gran # (Auto) 0.22 H Absolute Nucleated RBC 0.00 Immature Gran % 3 H Nucleated RBC % 0 Sodium 139 Potassium 4.0 Chloride 110 H Carbon Dioxide 21.8 Anion Gap 7 BUN 62 H Creatinine 1.7 H Estim Creat Clear Calc 36.1 L eGFR 32 L BUN/Creatinine Ratio 36 H Glucose 180 H Calculated Osmolality 300 H Calcium 8.4 Phosphorus 4.3 Magnesium 2.3 Crossmatch See Detail Quality Measures Quality Measures VTE prophylaxis Advance care planning discussed with:: patient Assessment & Plan Assessment Current Active Medications: Generic Name Dose Route Start Last Admin Trade Name Freq PRN Reason Stop Dose Admin Acetaminophen 650 mg 07/29/24 22:41 07/31/24 20:48 Acetaminophen 325 Mg Tablet PO 08/28/24 22:40 650 mg Q6H PRN Administration PAIN OR FEVER > 101 Amlodipine Besylate 5 mg 07/29/24 22:50 08/01/24 08:32 Amlodipine Besylate 5 Mg Tablet PO 08/28/24 22:49 5 mg QDAY NGOC Administration Atorvastatin Calcium 40 mg 07/30/24 21:00 07/31/24 20:49 Atorvastatin Calcium 20 Mg Tablet PO 08/29/24 20:59 40 mg HS NGOC Administration Carvedilol 6.25 mg 07/30/24 08:00 08/01/24 08:32 Carvedilol 3.125 Mg Tablet PO 08/29/24 07:59 6.25 mg BIDWM NGOC Administration Dextrose 25 ml 07/29/24 22:45 Dextrose 50%-Water Inj 50 Ml Syringe IV 08/28/24 22:44 Q15MIN PRN BG 50-70 responsive npo pt Dextrose 50 ml 07/29/24 22:45 Dextrose 50%-Water Inj 50 Ml Syringe IV 08/28/24 22:44 Q15MIN PRN BG <50 OR BG <70 & pt unresponsive Furosemide 40 mg 07/29/24 23:00 08/01/24 06:18 Furosemide Inj 10 Mg/Ml 4ml Vial IVP 08/28/24 22:59 40 mg BIDD NGOC Administration Glucagon 1 mg 07/29/24 22:45 Glucagon Inj 1 Mg Vial IM Q15MIN PRN BG <70, and no IV access Heparin Sodium (Porcine) 5,000 unit 07/30/24 09:00 08/01/24 08:32 Heparin Sod Inj 5000 Unit/Ml Vial SC 08/13/24 08:59 5,000 unit Q12HR NGOC Administration Insulin Human Lispro 0 unit 07/30/24 07:30 08/01/24 11:30 Insulin Lispro (Admelog) 1 Unit/0.01 Ml Unit SC 08/29/24 07:29 Not Given ACHS NG[facility] Protocol Levothyroxine Sodium 125 mcg/ 175 mcg 08/02/24 06:00 Levothyroxine Sodium 50 mcg PO 08/29/24 05:59 ACBR NGOC Losartan Potassium 25 mg 07/31/24 09:00 08/01/24 08:32 Losartan Potassium 25 Mg Tablet PO 08/30/24 08:59 25 mg QDAY NGOC Administration Ondansetron HCl 4 mg 07/29/24 22:41 Ondansetron Inj 2 Mg/Ml Inj 2 Ml IV 08/28/24 22:40 Q6H PRN NAUSEA OR VOMITING Protocol Plan Assessment and plan: Summary: Rayray Ratliff is a 69-year-old female with past medical history of 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 #Acute hypoxic respiratory failure, secondary to #Acute CHF exacerbation #HFrEF (EF 35-40%) #NSTEMI type II, likely demand ischemia Presents with progressive shortness of breath over 1 week. No orthopnea, PND, worsening BLE edema. Patient was started on 2 L nasal cannula as patient was hypoxic secondary to CHF exacerbation Patient's troponins were uptrending on admission, eventually down trended BNP 1941 on admission. Bilateral lower extremity showed right more edematous than left, venous Doppler negative for any DVT ECHO (07/29) shows Mild LV dilation. Moderate systolic dysfunction with moderate global hypokinesis. Estimated EF 35-40% Stage II diastolic dysfunction. Mild LVH. Mild RV dilation. Normal RV function. Estimated RVSP 48mmHg. Moderate PAH. RAP 15. Moderate biatrial dilation. Mild MAC. Mild to moderate MR. Mild TR, PI. IVC mild dilation. Plan ? Continue Lasix 40 mg IV twice daily ? Continue carvedilol 6.25 mg p.o. twice daily ? Will keep K > 4 and Mg > 2, replete as needed ? Fluid restriction (1.5 L/day), daily weights, strict I's and O's - Consulted cardiology appreciate recommendations #Acute on chronic kidney injury #Acute kidney injury #Chronic kidney disease, stage IV Concern of cardiorenal syndrome given history of CHF. Will diurese with 40 mg IV Lasix twice daily while monitoring kidney function. Renal function at baseline. Plan ? Nephrology consulted, appreciate recommendations ? Will continue Lasix 40 mg twice daily ? 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 ? Monitor CBC in a.m. #Type 2 diabetes mellitus A1c 06/2024 7.3%. ? Patient takes glipizide and Januvia at home - Patient is refusing insulin - Sliding scale insulin ordered #Hypertension - Losartan 25 mg p.o. daily ? Amlodipine 5 mg daily ? Carvedilol 6.25 mg p.o. twice daily #Hypothyroidism #Hyperlipidemia # Hypertriglyceridemia # Hypercholesterolemia ? Continue levothyroxine 175 mcg p.o. - Continue atorvastatin 40 mg at bedtime DVT prophylaxis: Heparin every 12 GI prophylaxis: Not indicated Diet: Cardiac carb consistent low Lines: Peripheral IV Code status: DNR Case discussed with Attending Dr. Cassie Brooks PGY1 Attending Provider Attestation/Addendum I, Jennifer Matthews DO, attest that I was physically present for the bui portions of the service and evaluated the patient with the resident and I reviewed and discussed the case with the resident and agree with the resident's findings and plans of care as documented above Patient seen and evaluated this AM. She states she is feeling well and anxious to go home. Patient is currently on room air and in no acute distress. She is noted to have 1+ b/l LE edema. Patient states that she had been compliant with her diuretics at home. Hgb dropped to 6.8 and received one unit of pRBCs, may be due to CKD, otherwise anemia studies have been ordered to other possible causes for bleeding. Patient is currently hemodynamically stable. Will continue with diuresis.
[2024-08-01] MEDS: ATORVASTATIN CALCIUM 20 MG TABLET 40 MG PO (20:41)
[2024-08-01] MEDS: ACETAMINOPHEN 325 MG TABLET 650 MG PO (23:29)
[2024-08-02] VITALS (13 sets, daily range): BP systolic 137–161; BP diastolic 64–94; PULSE 63–78; RESP 15–96; TEMP 36.1–36.4; O2SAT 96–97; BMI 32.9
[2024-08-02 06:05] LABS: Basophils # (Auto) 0.1 Thou/mm3 (0.0-0.2); Basophils % (Auto) 1 % (0-2.5); Eosinophils # (Auto) 0.4 Thou/mm3 (0.0-0.5); Eosinophils % (Auto) 5 % (0-10); Hematocrit 24.6 % (36.0-46.0); Immature Granulocytes % (Auto) 3 % (0-0); Lymphocytes # (Auto) 0.8 Thou/mm3 (1.0-4.8); Lymphocytes % (Auto) 10 % (10-50); Mean Corpuscular HGB Conc 32.5 g/dl (31.0-37.0); Mean Corpuscular Hemoglobin 31.6 pg (25.0-35.0); Mean Corpuscular Volume 97 fL (80-100); Monocytes # (Auto) 1.2 Thou/mm3 (0.0-0.8); Monocytes % (Auto) 16 % (0-12); Neutrophils # (Auto) 5.3 Thou/mm3 (1.8-7.7); Neutrophils % (Auto) 66 % (37-80); Nucleated Red Blood Cell % 0 /100 WBC (0); Platelet Count 202 Thou/mm3 (140-440); RDW Standard Deviation 54.6 fL (36.4-46.3); Red Blood Count 2.53 Miln/mm3 (4.00-5.20)
[2024-08-02] MEDS: LEVOTHYROXINE SODIUM 125 MCG, LEVOTHYROXINE SODIUM 50 MCG 175 MCG PO (06:14)
[2024-08-02] MEDS: FUROSEMIDE INJ 10 MG/ML 4ML VIAL 40 MG IVP ×3 (06:14→17:30)
[2024-08-02 06:45] LABS: Vitamin B12 615 pg/mL (211-911)
[2024-08-02 07:01] LABS: Alanine Aminotransferase 11 U/L (10-49); Albumin, Serum 3.7 gm/dL (3.4-4.8); Albumin/Globulin Ratio 1.6 (1.2-2.2); Alkaline Phosphatase 79 U/L (46-116); Anion Gap 7 (7-16); Aspartate Amino Transferase 11 U/L (0-34); BUN/Creatinine Ratio 36 Ratio (12-20); Bilirubin,Total 0.9 mg/dL (0.3-1.2); Blood Urea Nitrogen 61 mg/dL (9-23); Calcium 8.6 mg/dL (8.3-10.6); Calcium (Corrected) 8.8 mg/dL (8.5-10.1); Carbon Dioxide 23.5 mMol/L (20.0-31.0); Chloride 109 mMol/L (98-107); Creatinine (Component) 1.7 mg/dL (0.6-1.3); Globulin 2.3 gm/dL (2.3-3.5); Glucose 184 mg/dL (74-106); Osmolality,Calculated 299 (275-295); Potassium 4.3 mMol/L (3.4-5.1); Sodium 139 mMol/L (136-145); eGFR 32 See Note
[2024-08-02 07:27] LABS: Iron 36 mcg/dL (50-170); Percent Iron Saturation 14 % (20-55); Total Iron Binding Capacity 243 mcg/dL (250-425); Unsaturated Iron Binding 207 (225-295)
--- NOTE | 2024-08-02 07:56 | PD.RESPRO ---
Documentation for date of: 08/02/24 Subjective Subjective Interval history: Patient was seen and examined at bedside this AM. No acute exents overnight. Patient tolerating diet, adequate urine output and mentation is at baseline. Patient endorses improvement of SOB and generalized weakness. Now off of supplemental O2 Patient ambulated yesterday Patient currently on Furosemide 40 mg IV BID, Recommend Furosemide 80 mg IV daily Recommend an additional dose of Furosemide 40 mg IV x 1 for extra diuresis Fluid balance of +620 cc in the past 24 hours, however it seems that output is still not being accurately charted. Recommend strict input output charting Patient's weight this morning is 205 pounds with her weight yesterday 207 pounds [Dry weight 180-185lbs]. 2 lbs of fluid diuresis/24 hours. Continue to monitor daily weights. Potassium 4.3 and magnesium 2.2. Please maintain potassium greater than 3.5 as patient is CKD and magnesium greater than 2 at all times to prevent any arrhythmias. Patient was transfused with 1 unit PRBC 07/31 and currently Hb stable at 8 up from 6.8. 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 Iron panel was significant for iron 36, TIBC 243 and vitamin B12 615 Patient was started on IV iron today Exam Vital Signs Temp Pulse Resp BP Pulse Ox O2 Del Method O2 Flow Rate 97.6 F 68 20 140/64 H 96 Room Air 0 08/02/24 04:00 08/02/24 07:11 08/02/24 07:11 08/02/24 06:14 08/02/24 04:00 08/01/24 19:53 08/01/24 16:00 Narrative Exam Constitutional Alert, oriented x 3 and comfortable. Elderly female on RA HEENT Vision grossly intact. Patent nares. Trachea midline Respiratory Chest normal on inspection and clear to auscultation Cardiovascular S1 and S2 audible, RRR. 2/6 systolic murmur at apex, no carotid bruit. JVD unable to assess. Abdominal Soft,obese and non tender to palpation in all quadrants. 1+ edema on right abdomen, dependent area,. BS + Genitourinary No bladder tenderness, no flank pain. Normal to palpation Musculoskeletal Extremities tone within normal limits. Trace LE edema Neurological CN II - XII grossly intact. Extremity motor and sensation grossly intact. Skin Warm, dry and intact. No apparent lesions. Psychiatric Patient has good affect, is cooperative Objective Labs 08/02/24 05:41 08/02/24 05:41 Labs: Laboratory Results - last 24 hr 08/02/24 05:41 WBC 8.0 RBC 2.53 L Hgb 8.0 L Hct 24.6 L MCV 97 MCH 31.6 MCHC 32.5 RDW Std Deviation 54.6 H Plt Count 202 Neut % (Auto) 66 Lymph % (Auto) 10 [place] % (Auto) 16 H Eos % (Auto) 5 Baso % (Auto) 1 Neut # (Auto) 5.3 Lymph # (Auto) 0.8 L [place] # (Auto) 1.2 H Eos # (Auto) 0.4 Baso # (Auto) 0.1 Immature Gran # (Auto) 0.20 H Absolute Nucleated RBC 0.00 Immature Gran % 3 H Nucleated RBC % 0 Sodium 139 Potassium 4.3 Chloride 109 H Carbon Dioxide 23.5 Anion Gap 7 BUN 61 H Creatinine 1.7 H Estim Creat Clear Calc 36.0 L eGFR 32 L BUN/Creatinine Ratio 36 H Glucose 184 H Calculated Osmolality 299 H Calcium 8.6 Corrected Calcium 8.8 Iron 36 L TIBC 243 L Iron Saturation 14 L Unsat Iron Binding 207 L Total Bilirubin 0.9 AST 11 ALT 11 Alkaline Phosphatase 79 Total Protein 6.0 Albumin 3.7 Globulin 2.3 Albumin/Globulin Ratio 1.6 Vitamin B12 615 Quality Measures Quality Measures VTE prophylaxis Advance care planning discussed with:: patient Assessment & Plan Assessment Current Active Medications: Generic Name Dose Route Start Last Admin Trade Name Freq PRN Reason Stop Dose Admin Acetaminophen 650 mg 07/29/24 22:41 08/01/24 23:29 Acetaminophen 325 Mg Tablet PO 08/28/24 22:40 650 mg Q6H PRN Administration PAIN OR FEVER > 101 Amlodipine Besylate 5 mg 07/29/24 22:50 08/01/24 08:32 Amlodipine Besylate 5 Mg Tablet PO 08/28/24 22:49 5 mg QDAY NGOC Administration Atorvastatin Calcium 40 mg 07/30/24 21:00 08/01/24 20:41 Atorvastatin Calcium 20 Mg Tablet PO 08/29/24 20:59 40 mg HS NGOC Administration Carvedilol 6.25 mg 07/30/24 08:00 08/01/24 17:21 Carvedilol 3.125 Mg Tablet PO 08/29/24 07:59 6.25 mg BIDWM NGOC Administration Dextrose 25 ml 07/29/24 22:45 Dextrose 50%-Water Inj 50 Ml Syringe IV 08/28/24 22:44 Q15MIN PRN BG 50-70 responsive npo pt Dextrose 50 ml 07/29/24 22:45 Dextrose 50%-Water Inj 50 Ml Syringe IV 08/28/24 22:44 Q15MIN PRN BG <50 OR BG <70 & pt unresponsive Furosemide 40 mg 07/29/24 23:00 08/02/24 06:14 Furosemide Inj 10 Mg/Ml 4ml Vial IVP 08/28/24 22:59 40 mg BIDD NGOC Administration Glucagon 1 mg 07/29/24 22:45 Glucagon Inj 1 Mg Vial IM Q15MIN PRN BG <70, and no IV access Heparin Sodium (Porcine) 5,000 unit 07/30/24 09:00 08/01/24 20:41 Heparin Sod Inj 5000 Unit/Ml Vial SC 08/13/24 08:59 5,000 unit Q12HR NGOC Administration Insulin Human Lispro 0 unit 07/30/24 07:30 08/02/24 07:29 Insulin Lispro (Admelog) 1 Unit/0.01 Ml Unit SC 08/29/24 07:29 Not Given ACHS [facility] Protocol Levothyroxine Sodium 125 mcg/ 175 mcg 08/02/24 06:00 08/02/24 06:14 Levothyroxine Sodium 50 mcg PO 08/29/24 05:59 175 mcg ACBR NGOC Administration Losartan Potassium 25 mg 07/31/24 09:00 08/01/24 08:32 Losartan Potassium 25 Mg Tablet PO 08/30/24 08:59 25 mg QDAY NGOC Administration Ondansetron HCl 4 mg 07/29/24 22:41 Ondansetron Inj 2 Mg/Ml Inj 2 Ml IV 08/28/24 22:40 Q6H PRN NAUSEA OR VOMITING Protocol Plan A 68-year-old female with a past medical history of 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 Patient was admitted for acute decompensated heart failure exacerbation and Cardiology was consulted. 1. ACS - ruled out 2. NSTEMI type II On admission patient endorsed SOB at rest but denies having chest pain/pressure or palpitations. On exam she had 2+ sacral edema. BNP 1941 on admission. Troponin initially elevated at 0.212 subsequently up trended to 0.433 and currently downtrending at 0.407. EKG on admission showed sinus rhythm, rate [address] changes and normal MD intervals. Troponinemia most likely due to CHF exacerbation with supply demand mismatch. Plan: ? Recommend aspirin 81 mg p.o. daily ? No need to further trend troponin and no need for heparin infusion 3. Acute respiratory failure with hypoxia - resolved 4. Acute decompensated mixed systolic and diastolic heart failure exacerbation [40-45%] Etiology: Life stressor, medication noncompliance, influenza or RSV Patient experienced 1 day of SOB and generalized weakness prior to admission. On exam she had crackles at the lung bases bilaterally and sacral edema. BNP 1941 and troponin elevated on admission Home diuretic Lasix 80 mg p.o. daily and dry weights between 180-185pounds. Her weight at home prior to admission yesterday was about 204 pounds. 20 pounds more than her normal weight. BNP elevated at 194 and higher than before in 2022 indicating fluid overload and possible CHF exacerbation Patient was admitted for acute decompensated heart failure exacerbation and Cardiology was consulted. Patient endorses improvement of SOB and generalized weakness. Now off of supplemental O2 Patient ambulated yesterday Patient currently on Furosemide 40 mg IV BID, Recommend Furosemide 80 mg IV daily Recommend an additional dose of Furosemide 40 mg IV x 1 for extra diuresis Fluid balance of +620 cc in the past 24 hours, however it seems that output is still not being accurately charted. Recommend strict input output charting Patient's weight this morning is 205 pounds with her weight yesterday 207 pounds [Dry weight 180-185lbs]. 2 lbs of fluid diuresis/24 hours. Continue to monitor daily weights. Potassium 4.3 and magnesium 2.2. Please maintain potassium greater than 3.5 as patient is CKD and magnesium greater than 2 at all times to prevent any arrhythmias. Influenza A and B and RSV from 07/30 were both negative. Sputum Gram stain from 07/30 grew 2+ GPC Echocardiogram completed on 07/[address] Anumandla Findings include: Mild LV dilation. Moderate systolic dysfunction with moderate global hypokinesis. Estimated EF 35-40% Stage II diastolic dysfunction. Mild LVH. Mild RV dilation. Normal RV function. Estimated RVSP 48mmHg. Moderate PAH. RAP 15. Moderate biatrial dilation. Mild MAC. Mild to moderate MR. Mild TR, PI. IVC mild dilation. Plan: ? Strict input output charting ? 2 g sodium restricted diet ? Daily weights - 1500cc per day fluid restriction - Recommend to continue ambulation either with nurses assistance or PT ? Recommend diuresis with furosemide 80 mg IV once daily - Recommend additional dose of furosemide 40 mg IV x 1 today for extra diuresis ? Continue her losartan and carvedilol as part of GDMT. - On discharge can resume her home dose of Lasix 80mg po daily or can increase to Lasix 80mg po BID - Follow up in Cardiology Clinic within 1 week of discharge 5. Essential hypertension On admission BP 165/87. Home medication amlodipine 5 Mg p.o. daily,losartan 25 Mg p.o. daily, Coreg 6.25 Mg p.o. twice daily and furosemide 80 Mg p.o. daily. Currently BP 151/71 Plan: ? Continue with home medication and titrate as necessary - Recommend excellent control of BP with SBP < 140s 6. Chronic normocytic anemia From chart review baseline Hb between 9?10.0 On admission Hb 7.5 Patient needs complete anemia workup including the iron studies, B12, folate, peripheral smear, stool occult, LDH as well as haptoglobin as her hemoglobin continues to decrease. Her hemoglobin was stable around 10 last year Patient was transfused with 1 unit PRBC 07/31 and currently Hb stable at 8 up from 6.8. 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 Iron panel was significant for iron 36, TIBC 243 and vitamin B12 615 Patient was started on IV iron today 7. Hypothyroidism Patient's home medication levothyroxine 175mcg every other day and Levothyroxine 200mcg po every other day. Continue management as per primary team. 8. NIDDM type 2 [7.2] Most recent HbA1c from last month 7.2 %. Patient is on sitagliptin at home. Continue management as per primary team 9. History of scalp carcinoma s/p excision 2002 10. Morbid obesity Patient's dry weight is 180-185 lbs. Prior to admission her weight was 204 lbs BMI on admission 15.1, not accurately recorded. Recommend standing weight 11. Hyperlipidemia: LDL 139, TG 235 and cholestrol 212 - started lipitor 40 mg once daily - Jul 2024 repeat lipid profile with LFT every year. check lft in 3 months after starting statin 12. ZELDA on CKD stage IIIb Likely prerenal due to CHF exacerbation Patient's baseline Cr 1.6?1.9. On admission Cr 2.1 ---> Cr 1.7 which appears to be back to her baseline Renal ultrasound completed on 07/30 showed normal-sized kidneys, bilateral renal parenchymal scar formation, no hydronephrosis, no cysts or masses Continue management as per primary team and nephrology Continue rest of management as per primary team. We are grateful to be able to participate in Ms Ratliff's care. Thank you for the consult Plan of care discussed with attending Scientific Software Developer, Dr Mark Riuz MD PGY 1 Attending Provider Attestation/Addendum I have personally seen and examined the patient separately on the above date of service and discussed the plan of care with the resident. I reviewed the resident Dr. uRiz consultation progress note and agree with the resident findings and plan in the note above and have also edited the documentation to reflect my findings and plan. Jeff Flores M.D. Interventional Cardiology
[2024-08-02] MEDS: LOSARTAN POTASSIUM 25 MG TABLET PO (08:13)
[2024-08-02] MEDS: carVEDILOL 3.125 MG TABLET 6.25 MG PO ×2 (08:14→17:29)
[2024-08-02] MEDS: amLODIPine BESYLATE 5 MG TABLET PO (08:14)
[2024-08-02] MEDS: HEPARIN SOD INJ 5000 UNIT/ML VIAL SC ×2 (08:16→20:15)
[2024-08-02 08:27] LABS: Magnesium 2.2 mg/dL (1.6-2.6)
--- NOTE | 2024-08-02 09:28 | ESPR_ITS ---
Documentation for date of: 08/02/24 Subjective Subjective Interval history: Rayray Ratliff is a 69-year-old female with past medical history of HFmrEF (EF 40- 45%, 08/2023), hypertension, type 2 diabetes mellitus, hypothyroidism, and chronic normocytic anemia who presents to the ED with shortness of breath. Patient endorses progressive worsening of shortness of breath for the last week with associated bilateral lower extremity edema, but denies associated orthopnea, PND, and chest discomfort. She is followed outpatient by Dr. Flores. Her only other complaint is fecal incontinence and 2-3 episodes of nonbloody loose bowel movements. No fever, chills, abdominal pain, nausea, vomiting, or recent antibiotic use. Patient received 1 L bolus normal saline in the ED. ED labs significant for sodium 139, potassium 4.9, bicarb 17.7, BUN 66, creatinine 2.4, eGFR 21 . Baseline creatinine 1.6-2.0, baseline eGFR 30?35. Nephrology consulted for ZELDA on CKD in setting of CHF exacerbation. Patient seen and examined on the floors. Patient resting comfortably. Bilateral lower extremity edema, lungs clear to auscultation. 0 L output recorded. Patient unclear on home meds, med rec's pending, will follow-up. Labs today potassium 4.0, bicarb 18.8, BUN 60, creatinine 2.1, eGFR 25. Patient currently receiving IV Lasix for diuretics. 07/31: Patient seen and examined in telemetry. Patient resting comfortably in bed. No measured urine output. Patient hemoglobin 6.8, receiving 2 units PRBCs. Sodium 139, potassium 3.9, bicarb 22.1, BUN 16, creatinine 1.9, eGFR 28. Urine total protein 88, urine sodium 34.5, and creatinine 57. Renal ultrasound showed moderate bilateral renal parenchymal scar formation. Patient continued to receive Lasix. 08/01, patient seen and examined in telemetry. Patient was comfortable in bed, feels well. No measured urine output, patient reports producing good urine in diapers. Sodium 139, potassium 4.0, bicarb 21.8, BUN 60, creatinine 1.7, GFR 32. Hemoglobin 7.4. 08/02: Patient seen and examined in symmetry. Patient was resting comfortably in bed, feeling well, denies shortness of breath. Patient reports continuing to produce good urine. Sodium 139, potassium 4.3, bicarb 23.5, BUN 61, creatinine 1.7, eGFR 32. Patient is cleared for discharge from nephrology perspective. Exam Vital Signs Temp Pulse Resp BP Pulse Ox O2 Del Method O2 Flow Rate 97.3 F 67 22 H 161/75 H 97 Room Air 0 08/02/24 08:00 08/02/24 08:14 08/02/24 08:00 08/02/24 08:14 08/02/24 08:00 08/02/24 08:00 08/01/24 16:00 Narrative Exam PE: Gen: Well-developed and well-nourished. HEENT: NCAT, PERRLA, EOMI, MMM, anicteric conjunctivae. CVS: normal S1 and S2. RRR. No M/R/G. Resp: CTA B/L. No rhonchi, rales, crackles or wheezing. Abd: soft, non-tender, non-distended. MSK: Good ROM in BUE & BLE. No rash. Trace bilateral lower extremity edema. Neuro: CN II-XII grossly intact. Strength 5/5 in BUE & BLE. Alert and oriented x3. Objective Labs 08/02/24 05:41 08/02/24 05:41 Labs: Laboratory Results - last 24 hr 08/02/24 05:41 WBC 8.0 RBC 2.53 L Hgb 8.0 L Hct 24.6 L MCV 97 MCH 31.6 MCHC 32.5 RDW Std Deviation 54.6 H Plt Count 202 Neut % (Auto) 66 Lymph % (Auto) 10 [place] % (Auto) 16 H Eos % (Auto) 5 Baso % (Auto) 1 Neut # (Auto) 5.3 Lymph # (Auto) 0.8 L [place] # (Auto) 1.2 H Eos # (Auto) 0.4 Baso # (Auto) 0.1 Immature Gran # (Auto) 0.20 H Absolute Nucleated RBC 0.00 Immature Gran % 3 H Nucleated RBC % 0 Sodium 139 Potassium 4.3 Chloride 109 H Carbon Dioxide 23.5 Anion Gap 7 BUN 61 H Creatinine 1.7 H Estim Creat Clear Calc 36.0 L eGFR 32 L BUN/Creatinine Ratio 36 H Glucose 184 H Calculated Osmolality 299 H Calcium 8.6 Corrected Calcium 8.8 Magnesium 2.2 Iron 36 L TIBC 243 L Iron Saturation 14 L Unsat Iron Binding 207 L Total Bilirubin 0.9 AST 11 ALT 11 Alkaline Phosphatase 79 Total Protein 6.0 Albumin 3.7 Globulin 2.3 Albumin/Globulin Ratio 1.6 Vitamin B12 615 Quality Measures Quality Measures VTE prophylaxis Advance care planning discussed with:: patient Assessment & Plan Assessment Current Active Medications: Generic Name Dose Route Start Last Admin Trade Name Alanq PRN Reason Stop Dose Admin Acetaminophen 650 mg 07/29/24 22:41 08/01/24 23:29 Acetaminophen 325 Mg Tablet PO 08/28/24 22:40 650 mg Q6H PRN Administration PAIN OR FEVER > 101 Amlodipine Besylate 5 mg 07/29/24 22:50 08/02/24 08:14 Amlodipine Besylate 5 Mg Tablet PO 08/28/24 22:49 5 mg QDAY NGOC Administration Atorvastatin Calcium 40 mg 07/30/24 21:00 08/01/24 20:41 Atorvastatin Calcium 20 Mg Tablet PO 08/29/24 20:59 40 mg HS NGOC Administration Carvedilol 6.25 mg 07/30/24 08:00 08/02/24 08:14 Carvedilol 3.125 Mg Tablet PO 08/29/24 07:59 6.25 mg BIDWM NGOC Administration Dextrose 25 ml 07/29/24 22:45 Dextrose 50%-Water Inj 50 Ml Syringe IV 08/28/24 22:44 Q15MIN PRN BG 50-70 responsive npo pt Dextrose 50 ml 07/29/24 22:45 Dextrose 50%-Water Inj 50 Ml Syringe IV 08/28/24 22:44 Q15MIN PRN BG <50 OR BG <70 & pt unresponsive Furosemide 40 mg 07/29/24 23:00 08/02/24 06:14 Furosemide Inj 10 Mg/Ml 4ml Vial IVP 08/28/24 22:59 40 mg BIDD NGOC Administration Glucagon 1 mg 07/29/24 22:45 Glucagon Inj 1 Mg Vial IM Q15MIN PRN BG <70, and no IV access Heparin Sodium (Porcine) 5,000 unit 07/30/24 09:00 08/02/24 08:16 Heparin Sod Inj 5000 Unit/Ml Vial SC 08/13/24 08:59 5,000 unit Q12HR NGOC Administration Insulin Human Lispro 0 unit 07/30/24 07:30 08/02/24 07:29 Insulin Lispro (Admelog) 1 Unit/0.01 Ml Unit SC 08/29/24 07:29 Not Given ACHS [facility] Protocol Levothyroxine Sodium 125 mcg/ 175 mcg 08/02/24 06:00 08/02/24 06:14 Levothyroxine Sodium 50 mcg PO 08/29/24 05:59 175 mcg ACBR NGOC Administration Losartan Potassium 25 mg 07/31/24 09:00 08/02/24 08:13 Losartan Potassium 25 Mg Tablet PO 08/30/24 08:59 25 mg QDAY NGOC Administration Ondansetron HCl 4 mg 07/29/24 22:41 Ondansetron Inj 2 Mg/Ml Inj 2 Ml IV 08/28/24 22:40 Q6H PRN NAUSEA OR VOMITING Protocol Plan 69-year-old female with past medical history of 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 #Acute on chronic kidney injury #Chronic kidney disease, stage IV Patient has history of CKD, baseline creatinine 1.6?2.0, baseline eGFR 30?35. On admission patient had BUN 66, creatinine 2.4, eGFR 21. Patient received 1 L normal saline bolus in ED before being initiated on IV Lasix for diuresis. Kidney function showed improvement: BUN 60, creatinine 2.1, eGFR 25. Renal ultrasound showed bilateral parenchymal scar formation. Urine studies showed total protein 88, creatinine 67, sodium 94.5. Kidney function continues to improve. Patient reports subjective improvement in symptoms. Plan: -Avoid nephrotoxins -Renally dose meds -Monitor daily labs -Diuresis: Lasix 40 mg IV twice daily -Strict I's and O's -Patient cleared for discharge from nephrology perspective #Acute hypoxic respiratory failure, secondary to #Acute CHF exacerbation #HFmrEF (EF 40-45%, 08/2023) #NSTEMI type II, likely demand ischemia #Normocytic anemia, chronic #Type 2 diabetes mellitus #Hypertension #Hypothyroidism Management as per primary team. DVT prophylaxis: Heparin GI prophylaxis: None Diet: Cardiac/carb consistent low Lines: Peripheral IV Code status: DNR Thank you for allowing to persist pain in the care of this patient. Plan of care discussed with attending Dr. Llanos. Romeo De Leon MD PGY-1 Attending Provider Attestation/Addendum Patient seen and examined with resident physician Dr. De Leon. Note reviewed, agree with findings and recommendations. Patient feeling much better. Renal patterson stable for discharge. Creatinine stable.
--- NOTE | 2024-08-02 15:07 | ESPR_ITS ---
<Statement entered by Naomie Ryder DO - 08/02/24 19:21> Senior attestation: Patient was examined and case was reviewed with team including attending physician. Note reviewed, I agree with most of its contents and agree with the patient's care. Cardiology team following, advises IV iron supplementation for 2 days, will start first dose today. Patient has been cleared for discharge from nephrology standpoint. Will continue IV iron supplementation today and anticipate discharge in next 24-48 hours. Naomie Ryder DO PGY-3 Documentation for date of: 08/02/24 Subjective Subjective Interval history: Patient was seen at bedside No acute events overnight. Patient reports improvement of SOB and generalized weakness. Saturating well on room air. Patient cleared from nephrology standpoint for discharge today. Cardiology recommends IV iron for 2 days. Patient was transfused with 1 unit PRBC yesterday and hemoglobin stable at 7.4. Will continue to monitor patient. Exam Vital Signs Temp Pulse Resp BP Pulse Ox O2 Del Method O2 Flow Rate 97.6 F 63 18 147/89 H 97 Room Air 0 08/02/24 12:00 08/02/24 12:00 08/02/24 12:00 08/02/24 12:00 08/02/24 12:00 08/02/24 12:00 08/02/24 12:00 Narrative Exam General: Hirsutism, AOx3, laying in bed, in no acute distress, able to speak full sentences HEENT: NC/AT, mucous membranes moist, bilateral sclera anicteric Cardiovascular: regular rate and rhythm, S1/S2 present, no murmurs appreciated Pulmonary: clear to auscultation bilaterally, no rales/rhonchi/wheezes Abdominal: soft, non-tender, non-distended, no rebound/guarding, normal bowel sounds present Musculoskeletal: bilateral lower extremity edema 1+, R > L Skin: warm and dry, intact, no rashes Neuro: CN II-XII intact, no focal deficits Objective Labs 08/03/24 04:32 08/03/24 04:32 Labs: Laboratory Results - last 24 hr 08/02/24 05:41 WBC 8.0 RBC 2.53 L Hgb 8.0 L Hct 24.6 L MCV 97 MCH 31.6 MCHC 32.5 RDW Std Deviation 54.6 H Plt Count 202 Neut % (Auto) 66 Lymph % (Auto) 10 [place] % (Auto) 16 H Eos % (Auto) 5 Baso % (Auto) 1 Neut # (Auto) 5.3 Lymph # (Auto) 0.8 L [place] # (Auto) 1.2 H Eos # (Auto) 0.4 Baso # (Auto) 0.1 Immature Gran # (Auto) 0.20 H Absolute Nucleated RBC 0.00 Immature Gran % 3 H Nucleated RBC % 0 Sodium 139 Potassium 4.3 Chloride 109 H Carbon Dioxide 23.5 Anion Gap 7 BUN 61 H Creatinine 1.7 H Estim Creat Clear Calc 36.0 L eGFR 32 L BUN/Creatinine Ratio 36 H Glucose 184 H Calculated Osmolality 299 H Calcium 8.6 Corrected Calcium 8.8 Magnesium 2.2 Iron 36 L TIBC 243 L Iron Saturation 14 L Unsat Iron Binding 207 L Total Bilirubin 0.9 AST 11 ALT 11 Alkaline Phosphatase 79 Total Protein 6.0 Albumin 3.7 Globulin 2.3 Albumin/Globulin Ratio 1.6 Vitamin B12 615 Quality Measures Quality Measures VTE prophylaxis Advance care planning discussed with:: patient Assessment & Plan Assessment Current Active Medications: Generic Name Dose Route Start Last Admin Trade Name Freq PRN Reason Stop Dose Admin Acetaminophen 650 mg 07/29/24 22:41 08/01/24 23:29 Acetaminophen 325 Mg Tablet PO 08/28/24 22:40 650 mg Q6H PRN Administration PAIN OR FEVER > 101 Amlodipine Besylate 5 mg 07/29/24 22:50 08/02/24 08:14 Amlodipine Besylate 5 Mg Tablet PO 08/28/24 22:49 5 mg QDAY NGOC Administration Atorvastatin Calcium 40 mg 07/30/24 21:00 08/01/24 20:41 Atorvastatin Calcium 20 Mg Tablet PO 08/29/24 20:59 40 mg HS NGOC Administration Carvedilol 6.25 mg 07/30/24 08:00 08/02/24 08:14 Carvedilol 3.125 Mg Tablet PO 08/29/24 07:59 6.25 mg BIDWM NGOC Administration Dextrose 25 ml 07/29/24 22:45 Dextrose 50%-Water Inj 50 Ml Syringe IV 08/28/24 22:44 Q15MIN PRN BG 50-70 responsive npo pt Dextrose 50 ml 07/29/24 22:45 Dextrose 50%-Water Inj 50 Ml Syringe IV 08/28/24 22:44 Q15MIN PRN BG <50 OR BG <70 & pt unresponsive Furosemide 40 mg 07/29/24 23:00 08/02/24 06:14 Furosemide Inj 10 Mg/Ml 4ml Vial IVP 08/28/24 22:59 40 mg BIDD NGOC Administration Glucagon 1 mg 07/29/24 22:45 Glucagon Inj 1 Mg Vial IM Q15MIN PRN BG <70, and no IV access Heparin Sodium (Porcine) 5,000 unit 07/30/24 09:00 08/02/24 08:16 Heparin Sod Inj 5000 Unit/Ml Vial SC 08/13/24 08:59 5,000 unit Q12HR NGOC Administration Insulin Human Lispro 0 unit 07/30/24 07:30 08/02/24 11:36 Insulin Lispro (Admelog) 1 Unit/0.01 Ml Unit SC 08/29/24 07:29 Not Given ACHS NGOC Protocol Levothyroxine Sodium 125 mcg/ 175 mcg 08/02/24 06:00 08/02/24 06:14 Levothyroxine Sodium 50 mcg PO 08/29/24 05:59 175 mcg ACBR NGOC Administration Losartan Potassium 25 mg 07/31/24 09:00 08/02/24 08:13 Losartan Potassium 25 Mg Tablet PO 08/30/24 08:59 25 mg QDAY NGOC Administration Ondansetron HCl 4 mg 07/29/24 22:41 Ondansetron Inj 2 Mg/Ml Inj 2 Ml IV 08/28/24 22:40 Q6H PRN NAUSEA OR VOMITING Protocol Plan Assessment and plan: Summary: Rayray Ratliff is a 69-year-old female with past medical history of 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 #Acute hypoxic respiratory failure, secondary to #Acute CHF exacerbation #HFrEF (EF 35-40%) #NSTEMI type II, likely demand ischemia Presents with progressive shortness of breath over 1 week. No orthopnea, PND, worsening BLE edema. Patient was started on 2 L nasal cannula as patient was hypoxic secondary to CHF exacerbation Patient's troponins were uptrending on admission, eventually down trended BNP 1941 on admission. Bilateral lower extremity showed right more edematous than left, venous Doppler negative for any DVT ECHO (07/29) shows Mild LV dilation. Moderate systolic dysfunction with moderate global hypokinesis. Estimated EF 35-40% Stage II diastolic dysfunction. Mild LVH. Mild RV dilation. Normal RV function. Estimated RVSP 48mmHg. Moderate PAH. RAP 15. Moderate biatrial dilation. Mild MAC. Mild to moderate MR. Mild TR, PI. IVC mild dilation. Plan ? Continue Lasix 40 mg IV twice daily, patient was given Lasix 40 mg x 1 today. ? Continue carvedilol 6.25 mg p.o. twice daily. ? Will keep K > 4 and Mg > 2, replete as needed ? Fluid restriction (1.5 L/day), daily weights, strict I's and O's. - Consulted cardiology appreciate recommendations #Acute on chronic kidney injury #Acute kidney injury #Chronic kidney disease, stage IV Concern of cardiorenal syndrome given history of CHF. Will diurese with 40 mg IV Lasix twice daily while monitoring kidney function. Renal function at baseline. Plan - Clear for discharge per nephrology recs ? Nephrology consulted, appreciate recommendations ? Will continue Lasix 40 mg twice daily ? Avoid nephrotoxins, renally dose medications #Normocytic anemia, chronic # Acute on chronic normocytic anemia Possibly due to underlying chronic kidney disease Hemoglobin dropped to 6.8 yesterday was transfused 1 unit PRBC 07/31 Patient scheduled for erythropoietin therapy outpatient with slasher sawyer. Iron panel consistent with anemia of chronic disease. Plan: -Patient will be given IV iron for 2 days ? Monitor CBC in a.m. #Type 2 diabetes mellitus A1c 06/2024 7.3%. ? Patient takes Glipizide and Januvia at home - Patient is refusing insulin - Sliding scale insulin ordered #Hypertension - Losartan 25 mg p.o. daily ? Amlodipine 5 mg daily ? Carvedilol 6.25 mg p.o. twice daily #Hypothyroidism #Hyperlipidemia # Hypertriglyceridemia # Hypercholesterolemia ? Continue levothyroxine 175 mcg p.o. - Continue atorvastatin 40 mg at bedtime DVT prophylaxis: Heparin every 12 GI prophylaxis: Not indicated Diet: Cardiac carb consistent low Lines: Peripheral IV Code status: DNR Case discussed with Attending Dr. Gregory and Dr. Ryder PGY3. Elmer Brooks PGY1 Attending Provider Attestation/Addendum I have discussed and was present for the essential components of the history, physical examination, diagnosis, and treatment plan with the resident. I agree with the patient's care as documented by the resident and amended herein by me. Topher Gregory DO. Although this document has been carefully reviewed, there may still be some phonetic and other typographical errors. These errors are purely grammatical due to imperfections in the software program and should not be construed in any way to compromise the substance of the patient's medical care during this visit.
[2024-08-02] MEDS: IRON SUCROSE CPLX INJ 20 MG/ML VIAL 5 ML 200 MG IVP (15:54)
[2024-08-02] MEDS: ATORVASTATIN CALCIUM 20 MG TABLET 40 MG PO (20:15)
[2024-08-03] VITALS (10 sets, daily range): BP systolic 134–154; BP diastolic 56–87; PULSE 67–85; RESP 15–96; TEMP 36.3–36.6; O2SAT 95–98; BMI 32.9
[2024-08-03 05:59] LABS: Basophils # (Auto) 0.1 Thou/mm3 (0.0-0.2); Basophils % (Auto) 1 % (0-2.5); Eosinophils # (Auto) 0.4 Thou/mm3 (0.0-0.5); Eosinophils % (Auto) 5 % (0-10); Hematocrit 24.2 % (36.0-46.0); Immature Granulocytes % (Auto) 2 % (0-0); Immature Granulocytes Auto 0.16 Thou/mm3 (0.00-0.00); Lymphocytes % (Auto) 12 % (10-50); Mean Corpuscular HGB Conc 32.6 g/dl (31.0-37.0); Mean Corpuscular Hemoglobin 31.5 pg (25.0-35.0); Mean Corpuscular Volume 96 fL (80-100); Monocytes # (Auto) 1.3 Thou/mm3 (0.0-0.8); Monocytes % (Auto) 16 % (0-12); Neutrophils # (Auto) 5.3 Thou/mm3 (1.8-7.7); Neutrophils % (Auto) 64 % (37-80); Nucleated Red Blood Cell % 0 /100 WBC (0); Platelet Count 224 Thou/mm3 (140-440); RDW Standard Deviation 54.4 fL (36.4-46.3); Red Blood Count 2.51 Miln/mm3 (4.00-5.20); White Blood Count 8.2 Thou/mm3 (3.6-11.0)
[2024-08-03 06:00] LABS: Hemoglobin 7.9 g/dL (12.0-16.0)
[2024-08-03] MEDS: LEVOTHYROXINE SODIUM 125 MCG, LEVOTHYROXINE SODIUM 50 MCG 175 MCG PO (06:13)
[2024-08-03] MEDS: FUROSEMIDE INJ 10 MG/ML 4ML VIAL 40 MG IVP (06:13)
[2024-08-03 06:24] LABS: B-Type Natriuretic Peptide 906 pg/mL (0-100)
[2024-08-03 06:29] LABS: Alanine Aminotransferase 11 U/L (10-49); Albumin, Serum 3.5 gm/dL (3.4-4.8); Albumin/Globulin Ratio 1.5 (1.2-2.2); Alkaline Phosphatase 74 U/L (46-116); Anion Gap 7 (7-16); Aspartate Amino Transferase 13 U/L (0-34); BUN/Creatinine Ratio 38 Ratio (12-20); Bilirubin,Total 0.8 mg/dL (0.3-1.2); Blood Urea Nitrogen 68 mg/dL (9-23); Calcium 8.8 mg/dL (8.3-10.6); Calcium (Corrected) 9.2 mg/dL (8.5-10.1); Chloride 109 mMol/L (98-107); Creatinine (Component) 1.8 mg/dL (0.6-1.3); Estimated Creatinine Clearance 33.9 mL/min (>60); Globulin 2.3 gm/dL (2.3-3.5); Glucose 186 mg/dL (74-106); Osmolality,Calculated 304 (275-295); Potassium 4.6 mMol/L (3.4-5.1); Sodium 140 mMol/L (136-145); Total Protein 5.8 gm/dL (5.7-8.2); eGFR 30 See Note
[2024-08-03 07:21] LABS: Ferritin 479 ng/mL (7.3-270.7); Iron 87 mcg/dL (50-170)
[2024-08-03] MEDS: carVEDILOL 3.125 MG TABLET 6.25 MG PO (07:52)
--- NOTE | 2024-08-03 08:29 | PD.RESPRO ---
Documentation for date of: 08/03/24 Subjective Subjective Interval history: Patient was seen and examined at bedside this AM. No acute exents overnight. Patient tolerating diet, adequate urine output and mentation is at baseline. Patient feels well this morning. Denies any chest pain/pressure, palpitations or SOB. On RA Patient did not ambulate yesterday. Recommend to ambulate today Patient currently on Furosemide 40 mg IV BID, Recommend Furosemide 80 mg IV daily Fluid balance of -2360 cc in the past 24 hours, output now accurately charted. Recommend strict input output charting Patient's weight this morning is 204.18 lbs from 205 pounds yesterday [Dry weight 180-185lbs]. Continue to monitor daily weights. Potassium 4.3 and magnesium 2.2. Please maintain potassium greater than 3.5 as patient is CKD and magnesium greater than 2 at all times to prevent any arrhythmias. Patient was transfused with 1 unit PRBC 07/31 and currently Hb stable at 7.9 up from 6.8. Patient's receives Epogen injections monthly from Dr. Ramon her shrinking machine operator. Iron panel was significant for iron 36, TIBC 243 and vitamin B12 615 Patient was started on IV iron 08/02 Exam Vital Signs Temp Pulse Resp BP Pulse Ox O2 Del Method O2 Flow Rate 97.8 F 71 15 154/85 H 95 Room Air 0 08/03/24 04:00 08/03/24 07:52 08/03/24 07:20 08/03/24 07:52 08/03/24 04:00 08/03/24 04:00 08/02/24 16:00 Narrative Exam Constitutional Alert, oriented x 3 and comfortable. Elderly female on RA HEENT Vision grossly intact. Patent nares. Trachea midline Respiratory Chest normal on inspection and clear to auscultation Cardiovascular S1 and S2 audible, RRR. 2/6 systolic murmur at apex, no carotid bruit. JVD unable to assess. Abdominal Soft,obese and non tender to palpation in all quadrants. 1+ edema on right abdomen, dependent area- improved. BS + Genitourinary No bladder tenderness, no flank pain. Normal to palpation Musculoskeletal Extremities tone within normal limits. No LE edema Neurological CN II - XII grossly intact. Extremity motor and sensation grossly intact. Skin Warm, dry and intact. No apparent lesions. Psychiatric Patient has good affect, is cooperative Objective Labs 08/03/24 04:32 08/03/24 04:32 Labs: Laboratory Results - last 24 hr 07/31/24 08/03/24 08:13 04:32 WBC 8.2 RBC 2.51 L Hgb 7.9 L Hct 24.2 L MCV 96 MCH 31.5 MCHC 32.6 RDW Std Deviation 54.4 H Plt Count 224 Neut % (Auto) 64 Lymph % (Auto) 12 [place] % (Auto) 16 H Eos % (Auto) 5 Baso % (Auto) 1 Neut # (Auto) 5.3 Lymph # (Auto) 1.0 [place] # (Auto) 1.3 H Eos # (Auto) 0.4 Baso # (Auto) 0.1 Immature Gran # (Auto) 0.16 H Absolute Nucleated RBC 0.00 Immature Gran % 2 H Nucleated RBC % 0 Sodium 140 Potassium 4.6 Chloride 109 H Carbon Dioxide 24.0 Anion Gap 7 BUN 68 H Creatinine 1.8 H Estim Creat Clear Calc 33.9 L eGFR 30 L BUN/Creatinine Ratio 38 H Glucose 186 H Calculated Osmolality 304 H Calcium 8.8 Corrected Calcium 9.2 Iron 87 Ferritin 479 H Total Bilirubin 0.8 AST 13 ALT 11 Alkaline Phosphatase 74 B-Natriuretic Peptide 906 H* Total Protein 5.8 Albumin 3.5 Globulin 2.3 Albumin/Globulin Ratio 1.5 Crossmatch See Detail Quality Measures Quality Measures VTE prophylaxis Advance care planning discussed with:: patient Assessment & Plan Assessment Current Active Medications: Generic Name Dose Route Start Last Admin Trade Name Freq PRN Reason Stop Dose Admin Acetaminophen 650 mg 07/29/24 22:41 08/01/24 23:29 Acetaminophen 325 Mg Tablet PO 08/28/24 22:40 650 mg Q6H PRN Administration PAIN OR FEVER > 101 Amlodipine Besylate 5 mg 07/29/24 22:50 08/02/24 08:14 Amlodipine Besylate 5 Mg Tablet PO 08/28/24 22:49 5 mg QDAY NGOC Administration Atorvastatin Calcium 40 mg 07/30/24 21:00 08/02/24 20:15 Atorvastatin Calcium 20 Mg Tablet PO 08/29/24 20:59 40 mg HS NGOC Administration Carvedilol 6.25 mg 07/30/24 08:00 08/03/24 07:52 Carvedilol 3.125 Mg Tablet PO 08/29/24 07:59 6.25 mg BIDWM NGOC Administration Dextrose 25 ml 07/29/24 22:45 Dextrose 50%-Water Inj 50 Ml Syringe IV 08/28/24 22:44 Q15MIN PRN BG 50-70 responsive npo pt Dextrose 50 ml 07/29/24 22:45 Dextrose 50%-Water Inj 50 Ml Syringe IV 08/28/24 22:44 Q15MIN PRN BG <50 OR BG <70 & pt unresponsive Furosemide 40 mg 07/29/24 23:00 08/03/24 06:13 Furosemide Inj 10 Mg/Ml 4ml Vial IVP 08/28/24 22:59 40 mg BIDD NGOC Administration Glucagon 1 mg 07/29/24 22:45 Glucagon Inj 1 Mg Vial IM Q15MIN PRN BG <70, and no IV access Heparin Sodium (Porcine) 5,000 unit 07/30/24 09:00 08/02/24 20:15 Heparin Sod Inj 5000 Unit/Ml Vial SC 08/13/24 08:59 5,000 unit Q12HR NGOC Administration Insulin Human Lispro 0 unit 07/30/24 07:30 08/03/24 07:18 Insulin Lispro (Admelog) 1 Unit/0.01 Ml Unit SC 08/29/24 07:29 Not Given ACHS NGOC Protocol Iron Sucrose 200 mg 08/02/24 15:15 08/02/24 15:54 Iron Sucrose Cplx Inj 20 Mg/Ml Vial 5 Ml IVP 08/03/24 09:01 200 mg QAM NGOC Administration Levothyroxine Sodium 125 mcg/ 175 mcg 08/02/24 06:00 08/03/24 06:13 Levothyroxine Sodium 50 mcg PO 08/29/24 05:59 175 mcg ACBR NGOC Administration Losartan Potassium 25 mg 07/31/24 09:00 08/02/24 08:13 Losartan Potassium 25 Mg Tablet PO 08/30/24 08:59 25 mg QDAY NGOC Administration Ondansetron HCl 4 mg 07/29/24 22:41 Ondansetron Inj 2 Mg/Ml Inj 2 Ml IV 08/28/24 22:40 Q6H PRN NAUSEA OR VOMITING Protocol Plan A 68-year-old female with a past medical history of 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 Patient was admitted for acute decompensated heart failure exacerbation and Cardiology was consulted. 1. ACS - ruled out 2. NSTEMI type II On admission patient endorsed SOB at rest but denies having chest pain/pressure or palpitations. On exam she had 2+ sacral edema. BNP 1941 on admission. Troponin initially elevated at 0.212 subsequently up trended to 0.433 and currently downtrending at 0.407. EKG on admission showed sinus rhythm, rate [address] changes and normal NC intervals. Troponinemia most likely due to CHF exacerbation with supply demand mismatch. Plan: ? Recommend aspirin 81 mg p.o. daily ? No need to further trend troponin and no need for heparin infusion 3. Acute respiratory failure with hypoxia - resolved 4. Acute decompensated mixed systolic and diastolic heart failure exacerbation [40-45%] Etiology: Life stressor, medication noncompliance, influenza or RSV Patient experienced 1 day of SOB and generalized weakness prior to admission. On exam she had crackles at the lung bases bilaterally and sacral edema. BNP 194 and troponin elevated on admission Home diuretic Lasix 80 mg p.o. daily and dry weights between 180-185pounds. Her weight at home prior to admission yesterday was about 204 pounds. 20 pounds more than her normal weight. BNP elevated at 194 and higher than before in 2022 indicating fluid overload and possible CHF exacerbation Patient was admitted for acute decompensated heart failure exacerbation and Cardiology was consulted. Influenza A and B and RSV from 07/30 were both negative. Sputum Gram stain from 07/30 grew 2+ GPC Echocardiogram completed on 07/[address] Flores Findings include: Mild LV dilation. Moderate systolic dysfunction with moderate global hypokinesis. Estimated EF 35-40% Stage II diastolic dysfunction. Mild LVH. Mild RV dilation. Normal RV function. Estimated RVSP 48mmHg. Moderate PAH. RAP 15. Moderate biatrial dilation. Mild MAC. Mild to moderate MR. Mild TR, PI. IVC mild dilation. Patient feels well this morning. Denies any chest pain/pressure, palpitations or SOB. On RA Patient did not ambulate yesterday. Recommend to ambulate today Patient currently on Furosemide 40 mg IV BID, Recommend Furosemide 80 mg IV daily Fluid balance of -2360 cc in the past 24 hours, output now accurately charted. Recommend strict input output charting Patient's weight this morning is 204.18 lbs from 205 pounds yesterday [Dry weight 180-185lbs]. Continue to monitor daily weights. Potassium 4.3 and magnesium 2.2. Please maintain potassium greater than 3.5 as patient is CKD and magnesium greater than 2 at all times to prevent any arrhythmias. Plan: ? Strict input output charting ? 2 g sodium restricted diet ? Daily weights - 1500cc per day fluid restriction - Recommend to continue ambulation either with nurses assistance or PT ? Recommend diuresis with furosemide 80 mg IV once daily ? Continue her losartan and carvedilol as part of GDMT. - On discharge can resume her home dose of Lasix 80mg po daily or can increase to Lasix 80mg po BID - Follow up in Cardiology Clinic within 1 week of discharge 5. Essential hypertension On admission BP 165/87. Home medication amlodipine 5 Mg p.o. daily,losartan 25 Mg p.o. daily, Coreg 6.25 Mg p.o. twice daily and furosemide 80 Mg p.o. daily. Currently BP 154/85 Plan: ? Continue with home medication and titrate as necessary - Recommend excellent control of BP with SBP < 140s 6. Chronic normocytic anemia From chart review baseline Hb between 9?10.0 On admission Hb 7.5 Patient needs complete anemia workup including the iron studies, B12, folate, peripheral smear, stool occult, LDH as well as haptoglobin as her hemoglobin continues to decrease. Her hemoglobin was stable around 10 last year Patient was transfused with 1 unit PRBC 07/31 and currently Hb stable at 7.9 up from 6.8. Patient's receives Epogen injections monthly from Dr. Ramon her shrinking machine operator. Iron panel was significant for iron 36, TIBC 243 and vitamin B12 615 Patient was started on IV iron 08/02 7. Hypothyroidism Patient's home medication levothyroxine 175mcg every other day and Levothyroxine 200mcg po every other day. Continue management as per primary team. 8. NIDDM type 2 [7.2] Most recent HbA1c from last month 7.2 %. Patient is on sitagliptin at home. Continue management as per primary team 9. History of scalp carcinoma s/p excision 2002 10. Morbid obesity Patient's dry weight is 180-185 lbs. Prior to admission her weight was 204 lbs BMI on admission 15.1, not accurately recorded. Recommend standing weight 11. Hyperlipidemia: LDL 139, TG 235 and cholestrol 212 - started lipitor 40 mg once daily - Jul 2024 repeat lipid profile with LFT every year. check lft in 3 months after starting statin 12. ZELDA on CKD stage IIIb Likely prerenal due to CHF exacerbation Patient's baseline Cr 1.6?1.9. On admission Cr 2.1 ---> Cr 1.7 which appears to be back to her baseline Renal ultrasound completed on 07/30 showed normal-sized kidneys, bilateral renal parenchymal scar formation, no hydronephrosis, no cysts or masses Continue management as per primary team and nephrology Continue rest of management as per primary team. We are grateful to be able to participate in Ms Ratliff's care. Thank you for the consult Plan of care discussed with attending Service Specialist, Dr Mark Ruiz MD PGY 1 Attending Provider Attestation/Addendum I reviewed the resident Dr. Ruiz consultation progress note and agree with the resident findings and plan in the note above and have also edited the documentation to reflect my findings and plan. Jeff Flores M.D. Interventional Cardiology
[2024-08-03] MEDS: HEPARIN SOD INJ 5000 UNIT/ML VIAL SC (08:30)
[2024-08-03] MEDS: amLODIPine BESYLATE 5 MG TABLET PO (08:31)
[2024-08-03] MEDS: LOSARTAN POTASSIUM 25 MG TABLET PO (08:31)
[2024-08-03 09:55] LABS: Magnesium 2.3 mg/dL (1.6-2.6)
[2024-08-03] MEDS: IRON SUCROSE CPLX INJ 20 MG/ML VIAL 5 ML 200 MG IVP (10:14)
--- NOTE | 2024-08-03 13:09 | ESPR_ITS ---
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 Patient endorses progressive worsening of shortness of breath for the last week with associated bilateral lower extremity edema, but denies associated orthopnea, PND, and chest discomfort. She is followed outpatient by Dr. Flores. Her only other complaint is fecal incontinence and 2-3 episodes of nonbloody loose bowel movements. No fever, chills, abdominal pain, nausea, vomiting, or recent antibiotic use. Patient received 1 L bolus normal saline in the ED. ED labs significant for sodium 139, potassium 4.9, bicarb 17.7, BUN 66, creatinine 2.4, eGFR 21 . Baseline creatinine 1.6-2.0, baseline eGFR 30?35. Nephrology consulted for ZELDA on CKD in setting of CHF exacerbation. Patient seen and examined on the floors. Patient resting comfortably. Bilateral lower extremity edema, lungs clear to auscultation. 0 L output recorded. Patient unclear on home meds, med rec's pending, will follow-up. Labs today potassium 4.0, bicarb 18.8, BUN 60, creatinine 2.1, eGFR 25. Patient currently receiving IV Lasix for diuretics. 07/31: Patient seen and examined in telemetry. Patient resting comfortably in bed. No measured urine output. Patient hemoglobin 6.8, receiving 2 units PRBCs. Sodium 139, potassium 3.9, bicarb 22.1, BUN 16, creatinine 1.9, eGFR 28. Urine total protein 88, urine sodium 34.5, and creatinine 57. Renal ultrasound showed moderate bilateral renal parenchymal scar formation. Patient continued to receive Lasix. 08/01, patient seen and examined in telemetry. Patient was comfortable in bed, feels well. No measured urine output, patient reports producing good urine in diapers. Sodium 139, potassium 4.0, bicarb 21.8, BUN 60, creatinine 1.7, GFR 32. Hemoglobin 7.4. 08/02: Patient seen and examined in telemetry. Patient was resting comfortably in bed, feeling well, denies shortness of breath. Patient reports continuing to produce good urine. Sodium 139, potassium 4.3, bicarb 23.5, BUN 61, creatinine 1.7, eGFR 32. Patient is cleared for discharge from nephrology perspective. 08/03: Patient seen examined in telemetry. Patient was resting comfortably in bed, feeling well. 3.2 L urinary output. Sodium 140, potassium 4.6, bicarb 24, BUN 68, creatinine 1.8, eGFR 30. Patient cleared for discharge from nephrology perspective, will follow-up with Dr. Llanos outpatient. Exam Vital Signs Temp Pulse Resp BP Pulse Ox O2 Del Method O2 Flow Rate 97.5 F 69 21 H 137/56 H 98 Room Air 0 08/03/24 12:00 08/03/24 12:00 08/03/24 12:00 08/03/24 12:00 08/03/24 12:00 08/03/24 12:00 08/03/24 12:00 Narrative Exam PE: Gen: Well-developed and well-nourished. HEENT: NCAT, PERRLA, EOMI, MMM, anicteric conjunctivae. CVS: normal S1 and S2. RRR. No M/R/G. Resp: CTA B/L. No rhonchi, rales, crackles or wheezing. Abd: soft, non-tender, non-distended. MSK: Good ROM in BUE & BLE. No rash. Trace bilateral lower extremity edema. Neuro: CN II-XII grossly intact. Strength 5/5 in BUE & BLE. Alert and oriented x3. Objective Labs 08/03/24 04:32 08/03/24 04:32 Labs: Laboratory Results - last 24 hr 07/31/24 08/03/24 08:13 04:32 WBC 8.2 RBC 2.51 L Hgb 7.9 L Hct 24.2 L MCV 96 MCH 31.5 MCHC 32.6 RDW Std Deviation 54.4 H Plt Count 224 Neut % (Auto) 64 Lymph % (Auto) 12 Avery % (Auto) 16 H Eos % (Auto) 5 Baso % (Auto) 1 Neut # (Auto) 5.3 Lymph # (Auto) 1.0 Avery # (Auto) 1.3 H Eos # (Auto) 0.4 Baso # (Auto) 0.1 Immature Gran # (Auto) 0.16 H Absolute Nucleated RBC 0.00 Immature Gran % 2 H Nucleated RBC % 0 Sodium 140 Potassium 4.6 Chloride 109 H Carbon Dioxide 24.0 Anion Gap 7 BUN 68 H Creatinine 1.8 H Estim Creat Clear Calc 33.9 L eGFR 30 L BUN/Creatinine Ratio 38 H Glucose 186 H Calculated Osmolality 304 H Calcium 8.8 Corrected Calcium 9.2 Magnesium 2.3 Iron 87 Ferritin 479 H Total Bilirubin 0.8 AST 13 ALT 11 Alkaline Phosphatase 74 B-Natriuretic Peptide 906 H* Total Protein 5.8 Albumin 3.5 Globulin 2.3 Albumin/Globulin Ratio 1.5 Crossmatch See Detail Quality Measures Quality Measures VTE prophylaxis Advance care planning discussed with:: patient Assessment & Plan Assessment Current Active Medications: Generic Name Dose Route Start Last Admin Trade Name Freq PRN Reason Stop Dose Admin Acetaminophen 650 mg 07/29/24 22:41 08/01/24 23:29 Acetaminophen 325 Mg Tablet PO 08/28/24 22:40 650 mg Q6H PRN Administration PAIN OR FEVER > 101 Amlodipine Besylate 5 mg 07/29/24 22:50 08/03/24 08:31 Amlodipine Besylate 5 Mg Tablet PO 08/28/24 22:49 5 mg QDAY NGOC Administration Atorvastatin Calcium 40 mg 07/30/24 21:00 08/02/24 20:15 Atorvastatin Calcium 20 Mg Tablet PO 08/29/24 20:59 40 mg HS NGOC Administration Carvedilol 6.25 mg 07/30/24 08:00 08/03/24 07:52 Carvedilol 3.125 Mg Tablet PO 08/29/24 07:59 6.25 mg BIDWM NGOC Administration Dextrose 25 ml 07/29/24 22:45 Dextrose 50%-Water Inj 50 Ml Syringe IV 08/28/24 22:44 Q15MIN PRN BG 50-70 responsive npo pt Dextrose 50 ml 07/29/24 22:45 Dextrose 50%-Water Inj 50 Ml Syringe IV 08/28/24 22:44 Q15MIN PRN BG <50 OR BG <70 & pt unresponsive Furosemide 40 mg 07/29/24 23:00 08/03/24 06:13 Furosemide Inj 10 Mg/Ml 4ml Vial IVP 08/28/24 22:59 40 mg BIDD NGOC Administration Glucagon 1 mg 07/29/24 22:45 Glucagon Inj 1 Mg Vial IM Q15MIN PRN BG <70, and no IV access Heparin Sodium (Porcine) 5,000 unit 07/30/24 09:00 08/03/24 08:30 Heparin Sod Inj 5000 Unit/Ml Vial SC 08/13/24 08:59 5,000 unit Q12HR NGOC Administration Insulin Human Lispro 0 unit 07/30/24 07:30 08/03/24 11:20 Insulin Lispro (Admelog) 1 Unit/0.01 Ml Unit SC 08/29/24 07:29 Not Given ACHS NGOC Protocol Levothyroxine Sodium 125 mcg/ 175 mcg 08/02/24 06:00 08/03/24 06:13 Levothyroxine Sodium 50 mcg PO 08/29/24 05:59 175 mcg ACBR NGOC Administration Losartan Potassium 25 mg 07/31/24 09:00 08/03/24 08:31 Losartan Potassium 25 Mg Tablet PO 08/30/24 08:59 25 mg QDAY NGOC Administration Ondansetron HCl 4 mg 07/29/24 22:41 Ondansetron Inj 2 Mg/Ml Inj 2 Ml IV 08/28/24 22:40 Q6H PRN NAUSEA OR VOMITING Protocol Plan 69-year-old female with past medical history of 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 #Acute on chronic kidney injury #Chronic kidney disease, stage IV Patient has history of CKD, baseline creatinine 1.6?2.0, baseline eGFR 30?35. On admission patient had BUN 66, creatinine 2.4, eGFR 21. Patient received 1 L normal saline bolus in ED before being initiated on IV Lasix for diuresis. Kidney function showed improvement: BUN 60, creatinine 2.1, eGFR 25. Renal ultrasound showed bilateral parenchymal scar formation. Urine studies showed total protein 88, creatinine 67, sodium 94.5. Kidney function continues to improve. Patient reports subjective improvement in symptoms. Plan: -Avoid nephrotoxins -Renally dose meds -Monitor daily labs -Diuresis: Lasix 40 mg IV twice daily -Strict I's and O's -Patient cleared for discharge from nephrology perspective -To follow-up with Dr. Llanos outpatient #Acute hypoxic respiratory failure, secondary to #Acute CHF exacerbation #HFmrEF (EF 40-45%, 08/2023) #NSTEMI type II, likely demand ischemia #Normocytic anemia, chronic #Type 2 diabetes mellitus #Hypertension #Hypothyroidism Management as per primary team. DVT prophylaxis: Heparin GI prophylaxis: None Diet: Cardiac/carb consistent low Lines: Peripheral IV Code status: DNR Thank you for allowing to persist pain in the care of this patient. Plan of care discussed with attending Dr. Llanos. Romeo De Leon MD PGY-1 Attending Provider Attestation/Addendum Patient seen and examined with resident physician Dr. De Leon. Note reviewed, agree with findings and recommendations. Renal patterson stable for discharge
[2024-08-03 15:02] LABS: Percent Iron Saturation 37 % (20-55); Total Iron Binding Capacity 233 mcg/dL (250-425); Unsaturated Iron Binding 146 (225-295)
--- NOTE | 2024-08-03 15:39 | ESDS_ITS ---
<Statement entered by Naomie Ryder DO - 08/03/24 21:46> Senior attestation: Patient was examined and case was reviewed with team including attending physician. Note reviewed, I agree with most of its contents and agree with the patient's care. Naomie Ryder DO PGY-3 Planned Discharge Date 08/03/24 DS: Providers Provider Date of admission: 07/29/24 22:39 Primary care physician: Anupama Whaley PA-C Admitting Provider: Christopher Jung MD Attending Provider on Admission: Eddie Gregory DO Consults: 07/29/24 23:16 Consult to Nephrology Stat Comment: Cardiorenal syndrome Consulting Provider: Stanislaw Llanos 07/30/24 10:59 Consult to Cardiology Routine Comment: CHF Exacerbation Consulting Provider: Jeff Flores Attending Provider on DC: Eddie Gregory DO Discharging Provider: dEdie Gregory DO Anticipated date of discharge: 08/03/24 DS: Diagnosis Problem List Completed Was Problem List Reviewed/Reconciled?: Yes Hospital Course Status at Discharge Cognitive/behavioral status at discharge: Hospital course: Ms. Ratliff is a 69-year-old female with past medical history of HFrEF (EF 35 to 40%), hypertension, type 2 diabetes mellitus, hypothyroidism, chronic kidney disease and anemia of chronic disease who was admitted to [facility] for acute hypoxic respiratory failure secondary to acute decompensated heart failure. Patient was started on supplemental oxygen nation, IV diuresis, was placed on fluid restriction and strict intakes and output was maintained. Patient's hemoglobin with the progression of hospital course dropped to 6.8 and patient was transfused 1 unit PRBC, nephrology was consulted for patient's acute kidney injury which improved with IV diuresis. Patient was given IV iron as patient had a suspected component of iron deficiency anemia along with anemia of chronic disease. Patient responded well to IV diuresis and further plan is to discharge patient home with home health on Lasix 80 mg p.o. daily and atorvastatin 40 mg at bedtime. Patient follows up with patient registration rep outpatient and is already on GDMT, recommended to continue. Recommended to follow-up with primary care physician in 1 week and nephrology and cardiology outpatient in 1 to 2 weeks. Patient responded well to hospital treatment and is stable for discharge. Discharge diagnoses: #Acute hypoxic respiratory failure, resolved secondary to #Acute decompensated heart failure, resolved #HFrEF (EF 35-40%) #NSTEMI type II, demand ischemia #Acute on chronic kidney injury #Acute kidney injury #Chronic kidney disease, stage 3B #Normocytic anemia, chronic #Acute on chronic normocytic anemia #Type 2 diabetes mellitus #Hypertension #Hypothyroidism #Hyperlipidemia # Hypertriglyceridemia # Hypercholesterolemia Case discussed with Attending Dr. Gregory and Dr. Ryder PGY3. Elmer Brooks PGY1 Functional status at discharge: uses cane/walker Overall status at discharge: patient is back to baseline Time Spent with Patient Time attestation: Total time spent providing and/or coordinating discharge services: Greater than 30 minutes Time spent: Greater than 30 minutes Home Health Home Health Referral Orders: 08/03/24 08:47 Home Health Referral Routine Reason For Exam: debility Home-Bound The patient must either because of illness or injury, need the aid of supportive devices such as crutches, canes, wheelchairs, and walkers; the use of special transpo rtation; or the assistance of another person in order to leave their place of residence; OR have a condition such that leaving his or her home is medically contraindicated. In addition, the patient also meets the following criteria: patient is normally unable to leave the home and leaving home requires considerable taxing effort. Addendum to Home Health Certification Practitioner's Certification: I certify that the patient has been under my care in the hospital and the care of attending physician (see below). We had a [id number] encounter on (see date below). My clinical findings indicate that the patient is home bound per the above criteria and the Home Health Services noted in these orders are medically necessary. The primary reason for the [id number] encounter is related to the fact that the patient requires home health services. Date Certifying Soun-aq-Mhug Physician Encounter: 07/29/24 Physician's Name who will Assume Oversight for Services: Anupama Whaley Physician's Phone No.who will Assume Oversight for Service: [facility] - Community Resources: No PT to Evaluate: Yes PT to evaluate and provide a treatmnet plan to increase patient's mobility and strength. Wound Care: No IV Therapy: No Discontinue PICC Line Once Treatment Complete: No RN Safety Evaluation: Yes RN to evaluate and create a plan of care that will produce positive outcomes. Palliative Treatment: No Palliative treatment and evaluate the need for hospice. Home Health Aide - Personal Care: No Home Health Aide to assist with any ADL's. Exam Vital Signs Temp Pulse Resp BP Pulse Ox O2 Del Method O2 Flow Rate 97.5 F 69 21 H 137/56 H 98 Room Air 0 08/03/24 12:00 08/03/24 12:00 08/03/24 12:00 08/03/24 12:00 08/03/24 12:00 08/03/24 12:00 08/03/24 12:00 Discharge Plan Plan Patient Disposition: HOME (Self Care) Patient condition on transfer: Stable Care Plan Goals: Continue Lasix 80 mg p.o. daily. Start taking atorvastatin 40 mg every night. Follow-up with patient registration rep in 1 week. Follow-up with primary care physician in 1 week. Continue fluid restriction 1500 cc, check weight daily. Return to emergency department if symptoms worsen. Continue other home medications as prescribed. Stop Glyburide until you follow up with PCP. Prescriptions/Referrals Prescriptions/Med Rec: New atorvastatin 20 mg Tablet 40 mg PO HS 30 Days Qty: 60 0RF Continued levothyroxine 175 mcg tablet 175 mcg PO EVERYOTHERDAY Patient Comments: TAKE 1 TABLET BY MOUTH EVERY DAY diphenhydramine HCl [Benadryl Allergy] 25 mg Tablet 25 mg PO BID PRN (Reason: ALLERGY) levothyroxine 200 mcg tablet 200 mcg PO EVERYOTHERDAY Patient Comments: TAKE 1 TABLET BY MOUTH ON MONDAYS, WEDNESDAYS, FRIDAYS AND SUNDAYS carvedilol 6.25 mg Tablet 6.25 mg PO BID Rx Instructions: must administer with a meal/food amlodipine 5 mg Tablet 5 mg PO QDAY furosemide 80 mg Tablet 80 mg PO QDAY losartan 25 mg Tablet 25 mg PO QDAY Januvia 50 mg Tablet 50 mg PO QDAY Discontinued glyburide 5 mg Tablet 10 mg PO BID No Action glyburide 5 mg tablet 10 mg PO BID Patient Comments: TAKE 2 TABLETS BY MOUTH TWICE A DAY FOR DIABETES Referrals: Jeff Flores MD [Physician] - Anupama Whaley PA-C [Primary Care Provider] - Patient/Caregiver Discharge Instructions Discharge Activity: activity as tolerated Other Discharge Activity Instructions:: Continue Lasix 80 mg p.o. daily starting on 08/05/2024 Start taking atorvastatin 40 mg every night. Follow-up with patient registration rep in 1 week. Follow-up with primary care physician in 1 week. Continue fluid restriction 1500 cc, check weight daily. Return to emergency department if symptoms worsen. Continue other home medications as prescribed. Stop Glyburide until you follow up with PCP. Other Discharge Diet Instructions: Low-sodium diet, fluid restriction 1500 cc. Education Materials: Low Salt Diet Dc, Heart Failure Print Language: Ethiopian Stand Alone Forms: [employer] Info., Patient Portal Info Letter Discharge Order Discharge Orders: Discharge (Routine); Ordered 08/03/24 Ordered By: Elmer Brooks Quality Discharge Quality Measures VTE prophylaxis MD Attestestation MD Attestation I have discussed and was present for the essential components of the discharge history, physical examination, diagnosis, and discharge treatment plan with the resident. I agree with the patient's discharge care as documented by the resident and amended herein by me. Topher Gregory DO. The patient understood all discharge instructions, all questions were answered satisfactorily. The patient was instructed to return to the Emergency Department is symptoms worsened or persisted. Although this document has been carefully reviewed, there may still be some phonetic and other typographical errors. These errors are purely grammatical due to imperfections in the software program and should not be construed in any way to compromise the substance of the patient's medical care during this visit.
--- NOTE | 2024-08-04 08:57 | PC.CM ---
Addendum entered by Tadeo Corbin RN 08/04/24 09:32: Booked with ROSALINE JORDAN, SOC 08/07 Original Note: HH referrals sent through [employer], awaiting responses.
== END 2024-08-03 15:12 | disposition home or self-care (01) | DRG 280 ==
LOC: SERX 22:38 → SERHOLD 23:36 → S2NX 07-30 01:15
PROVIDERS: Internal Medicine; Student in an Organized Health Care Education/Training Program; Admitting Provider Internal Medicine; Emergency Provider Emergency Medicine; PCP Physician Assistant; Visit Provider Student in an Organized Health Care Education/Training Program
DX: I13.0 Hypertensive heart and chronic kidney disease with heart failure and stage 1 through stage 4 chronic kidney disease, or unspecified chronic kidney disease (principal); I50.43 Acute on chronic combined systolic (congestive) and diastolic (congestive) heart failure; I21.A1 Myocardial infarction type 2; J96.01 Acute respiratory failure with hypoxia; N17.9 Acute kidney failure, unspecified; E11.22 Type 2 diabetes mellitus with diabetic chronic kidney disease; D63.1 Anemia in chronic kidney disease; N18.32 Chronic kidney disease, stage 3b; E03.9 Hypothyroidism, unspecified; Z66 Do not resuscitate; E66.01 Morbid (severe) obesity due to excess calories; Z68.33 Body mass index [BMI] 33.0-33.9, adult; E78.00 Pure hypercholesterolemia, unspecified; E78.1 Pure hyperglyceridemia; F17.200 Nicotine dependence, unspecified, uncomplicated; Z85.828 Personal history of other malignant neoplasm of skin; Z91.148 Patient's other noncompliance with medication regimen for other reason; Z79.890 Hormone replacement therapy; Z79.84 Long term (current) use of oral hypoglycemic drugs; Z79.899 Other long term (current) drug therapy; Z88.6 Allergy status to analgesic agent; Z88.5 Allergy status to narcotic agent
CPT/HCPCS: 36415; 70450; 71045; 76770; 80048; 80053; 80061; 81001; 82570; 82607; 82728; 83540; 83550; 83735; 83880; 84100; 84156; 84300; 84443; 84484; 85025; 86850; 86900; 86901; 86923; 87205; 87502; 87634; 93005; 93306; 93971; 96361; 96374; 97162; 99291; J1643; J1756; J1940; J7030; P9016; A9270; J1644

== ENCOUNTER → 2024-08-24 | Outpatient (CLI) | payer MEDICARE, MEDICAID, SELFPAY ==
[2024-08-24 09:18] LABS: Basophils # (Auto) 0.1 Thou/mm3 (0.0-0.2); Basophils % (Auto) 1 % (0-2.5); Eosinophils # (Auto) 0.4 Thou/mm3 (0.0-0.5); Eosinophils % (Auto) 5 % (0-10); Hematocrit 27.9 % (36.0-46.0); Hemoglobin 9.2 g/dL (12.0-16.0); Immature Granulocytes % (Auto) 1 % (0-0); Immature Granulocytes Auto 0.04 Thou/mm3 (0.00-0.00); Lymphocytes # (Auto) 1.1 Thou/mm3 (1.0-4.8); Lymphocytes % (Auto) 14 % (10-50); Mean Corpuscular Hemoglobin 31.7 pg (25.0-35.0); Mean Corpuscular Volume 96 fL (80-100); Monocytes # (Auto) 1.1 Thou/mm3 (0.0-0.8); Monocytes % (Auto) 14 % (0-12); Neutrophils # (Auto) 5.3 Thou/mm3 (1.8-7.7); Neutrophils % (Auto) 66 % (37-80); Nucleated Red Blood Cell % 0 /100 WBC (0); Platelet Count 241 Thou/mm3 (140-440); RDW Standard Deviation 49.8 fL (36.4-46.3); White Blood Count 8.1 Thou/mm3 (3.6-11.0)
[2024-08-24 09:40] LABS: Albumin, Serum 4.5 gm/dL (3.4-4.8); Albumin/Globulin Ratio 1.9 (1.2-2.2); Alkaline Phosphatase 86 U/L (46-116); Anion Gap 7 (7-16); BUN/Creatinine Ratio 31 Ratio (12-20); Bilirubin,Direct 0.2 mg/dL (0.0-0.3); Bilirubin,Total 0.7 mg/dL (0.3-1.2); Blood Urea Nitrogen 50 mg/dL (9-23); Calcium 9.6 mg/dL (8.3-10.6); Calcium (Corrected) 9.6 mg/dL (8.5-10.1); Carbon Dioxide 25.7 mMol/L (20.0-31.0); Chloride 108 mMol/L (98-107); Creatinine (Component) 1.6 mg/dL (0.6-1.3); Globulin 2.4 gm/dL (2.3-3.5); Glucose 110 mg/dL (74-106); Magnesium 2.3 mg/dL (1.6-2.6); Osmolality,Calculated 295 (275-295); Potassium 4.6 mMol/L (3.4-5.1); Sodium 141 mMol/L (136-145); Total Protein 6.9 gm/dL (5.7-8.2); eGFR 35 See Note
[2024-08-24 10:05] LABS: Alanine Aminotransferase 10 U/L (10-49); Aspartate Amino Transferase < 8 U/L (0-34)
== END | disposition home or self-care (01) ==
LOC: COPL 08:15
PROVIDERS: PCP Physician Assistant; Referring Provider Internal Medicine Cardiovascular Disease; Visit Provider Internal Medicine Cardiovascular Disease
DX: I50.9 Heart failure, unspecified (principal); R06.02 Shortness of breath
CPT/HCPCS: 36415; 80053; 82248; 83735; 85025

== ENCOUNTER → 2024-09-10 | Outpatient (CLI) | payer MEDICARE, MEDICAID, SELFPAY ==
[2024-09-10 08:44] LABS: Basophils # (Auto) 0.1 Thou/mm3 (0.0-0.2); Basophils % (Auto) 1 % (0-2.5); Eosinophils # (Auto) 0.5 Thou/mm3 (0.0-0.5); Eosinophils % (Auto) 5 % (0-10); Hematocrit 29.2 % (36.0-46.0); Hemoglobin 9.4 g/dL (12.0-16.0); Immature Granulocytes % (Auto) 0 % (0-0); Immature Granulocytes Auto 0.04 Thou/mm3 (0.00-0.00); Lymphocytes # (Auto) 1.3 Thou/mm3 (1.0-4.8); Lymphocytes % (Auto) 14 % (10-50); Mean Corpuscular HGB Conc 32.2 g/dl (31.0-37.0); Mean Corpuscular Hemoglobin 30.7 pg (25.0-35.0); Mean Corpuscular Volume 95 fL (80-100); Monocytes # (Auto) 1.2 Thou/mm3 (0.0-0.8); Monocytes % (Auto) 13 % (0-12); Neutrophils % (Auto) 66 % (37-80); Nucleated Red Blood Cell % 0 /100 WBC (0); Platelet Count 263 Thou/mm3 (140-440); RDW Standard Deviation 46.4 fL (36.4-46.3); Red Blood Count 3.06 Miln/mm3 (4.00-5.20); White Blood Count 9.1 Thou/mm3 (3.6-11.0)
[2024-09-10 09:01] LABS: Glucose Estimated Average 140 mg/dL (80-131); Hemoglobin A1C 6.5 % Hgb (4.8-6.0)
[2024-09-10 09:04] LABS: Collection Type, Urine Clean Catch
[2024-09-10 09:20] LABS: Alanine Aminotransferase 9 U/L (10-49); Albumin, Serum 4.6 gm/dL (3.4-4.8); Albumin/Globulin Ratio 1.9 (1.2-2.2); Alkaline Phosphatase 87 U/L (46-116); Anion Gap 11 (7-16); Aspartate Amino Transferase 11 U/L (0-34); BUN/Creatinine Ratio 37 Ratio (12-20); Bilirubin,Total 0.8 mg/dL (0.3-1.2); Blood Urea Nitrogen 71 mg/dL (9-23); Calcium 9.7 mg/dL (8.3-10.6); Calcium (Corrected) 9.7 mg/dL (8.5-10.1); Carbon Dioxide 28.9 mMol/L (20.0-31.0); Chloride 103 mMol/L (98-107); Cholesterol 254 mg/dL (132-200); Creatinine (Component) 1.9 mg/dL (0.6-1.3); Globulin 2.4 gm/dL (2.3-3.5); Glucose 127 mg/dL (74-106); HDL Cholesterol 42 mg/dL (40-60); LDL Cholesterol,Calculated 144 mg/dL (0-130); Osmolality,Calculated 307 (275-295); Potassium 4.1 mMol/L (3.4-5.1); Sodium 143 mMol/L (136-145); Thyroid Stimulating Hormone 0.27 uIU/mL (0.55-4.78); Triglycerides 339 mg/dL (30-150); eGFR 28 See Note
[2024-09-10 09:42] LABS: Bilirubin,Urine Negative (Negative); Blood,Urine Trace (Negative); Clarity,Urine Clear (Clear/Hazy); Color,Urine Lt-Yellow (Lt Yel-Yel); Glucose, Urine Negative (Negative); Hyaline Casts,Urine < 1 /hpf (0-1); Ketones,Urine Negative (Negative); Leukocyte Esterase,Urine Positive (Negative); Nitrite,Urine Negative (Negative); Protein,Urine 2+ (Neg - Trace); RBC,Urine 3 /hpf (0-3); Specific Gravity,Urine 1.013 (1.001-1.035); Squamous Epithelial Cell,Urine < 1 /hpf (0-5); Urobilinogen,Urine Negative mg/dL (0.0-1.0); WBC,Urine 12 /hpf (0-5)
[2024-09-10 09:47] LABS: Culture Indicated,Urine Yes
== END | disposition home or self-care (01) ==
PROVIDERS: PCP Physician Assistant; Referring Provider Physician Assistant; Visit Provider Physician Assistant
DX: E11.65 Type 2 diabetes mellitus with hyperglycemia (principal); I10 Essential (primary) hypertension; E03.9 Hypothyroidism, unspecified
CPT/HCPCS: 36415; 80053; 80061; 81001; 83036; 84443; 85025; 87077; 87086; 87186

== ENCOUNTER 2024-10-07 14:48 | Emergency (ER) | payer MEDICARE, MEDICAID, SELFPAY ==
[2024-10-07 14:52] VITALS: BP 204/94; PULSE 82; RESP 17; RESP 18; TEMP 36.6; O2SAT 100; O2SAT 94
[2024-10-07 14:56] VITALS: BMI 29.7
--- NOTE | 2024-10-07 15:41 | XR_ITS ---
Examination: Knee, right , 3 views Technique: Knee AP, lateral, oblique 3 views Date and time of exam: October 07, 2024 at 1533 hours INDICATIONS: Patient fell one month ago with injury to the knee, knee pain. FINDINGS: Severe osteopenia Advanced narrowing patellofemoral joint No definite acute fracture IMPRESSION: No definite acute fracture Given the severe osteopenia, if knee pain persists, recommend CT scan knee without contrast follow-up
--- NOTE | 2024-10-07 15:43 | EDNOTE_ITS ---
<Statement entered by Ruthann Rao MD - 10/23/24 07:19> As co-signing physician, I was present and available for consult prn. I concur with the plan and care as documented by the midlevel provider. Lower Extremity Injury RME/HPI General Chief Complaint: Extremity Injury, Lower Stated Complaint: LEG PAIN Time Seen by Provider: 10/07/24 15:35 Arrival date/time: 10/07/24 14:48 Patient reports falling on 12 September this year and for the most part feels like everything else feels better but her right knee still hurts. Patient has had no recent trauma did not fall today. Patient states this morning she felt like she stepped wrong and started having pain to her right knee. Patient reports history of high blood pressure, diabetes, hypothyroidism. Related Data Home Medications ?Medication ?Instructions ?Recorded ?Confirmed diphenhydramine HCl 25 mg tablet 25 mg PO BID PRN NIVIA RGY 08/10/23 07/30/24 (Benadryl Allergy) levothyroxine 175 mcg tablet 175 mcg PO EVERYOTHERDAY 08/10/23 07/30/24 levothyroxine 200 mcg tablet 200 mcg PO EVERYOTHERDAY 08/10/23 07/30/24 amlodipine 5 mg tablet 5 mg PO QDAY 07/30/24 carvedilol 6.25 mg tablet 6.25 mg PO BID 07/30/2407/13 furosemide 80 mg tablet 80 mg PO QDAY 07/30/2407/30 losartan 25 mg tablet 25 mg PO QDAY 07/30/2407/30 sitagliptin phosphate 50 mg tablet 50 mg PO QDAY 07/3007/30/24 (Januvia) glyburide 5 mg tablet 10 mg PO BID 08/02/24 Allergies Allergy/AdvReac Type Severity Reaction Status Date / Time shellfish derived Allergy Intermediate Flushing Verified 10/07/24 14:57 aspirin Allergy Verified 10/07/24 14:57 codeine Allergy Verified 10/07/24 14:57 doxycycline Allergy Verified 10/07/24 14:57 egg Allergy Verified 10/07/24 14:57 tetracycline Allergy Verified 10/07/24 14:57 Review of Systems Review of Systems Systems Reviewed: All systems reviewed, normal except as documented Past Medical History Past Medical History Comments PMH COMMENT: Past surgical history: Nil Allergies: As per chart Social history: Patient lives in a trailer here lives by herself does ADLs by herself but needs some help with IADLs. Never did not have any kids. 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 Education level is high school diploma and did a couple of years of training after that. Denies any smoking alcohol or drug abuse. Family History: Mother was diagnosed with heart disease in the 40s and leading early 60s but she is unsure of exactly what it was. Brother also has history of heart failure and one of her cousins has pacemaker. Patient does not know exact cardiac history of many of the family members. ED Exam General General appearance: Present alert and in no apparent distress Head Head exam: Present atraumatic Eye Eye exam: Present normal appearance, PERRL and EOMI ENT ENT exam: Present normal exam, normal oropharynx and mucous membranes moist Neck Neck exam: Present normal inspection, full ROM and trachea midline Chest Chest inspection: Present normal inspection and symmetric chest wall rise Respiratory Respiratory exam: Present normal lung sounds bilaterally Cardiovascular Cardiovascular exam: Present regular rate and normal heart sounds Abdominal Exam Abdominal exam: Present soft Extremities Exam Extremities exam: Present normal inspection and full ROM Back Exam Back exam: Present normal inspection and full ROM Neurological Exam Neurological exam: Present alert and oriented X3 Psychiatric Psychiatric exam: Present normal affect and normal mood Skin Skin exam: Present warm, dry, intact and normal color Course Quality Measures none Orders Category Date Time Status XR knee RT 3V Stat Exams 10/07/24 15:41 Completed Acetaminophen Tab [Tylenol ES Tab] Med 10/07/24 15:42 Discontinued 1,000 mg PO X1 ONE traMADol HCL [Ultram] Med 10/07/24 18:43 Discontinued 50 mg PO X1 ONE Vital Signs Vital signs: Vital Signs Temperature 97.8 F 10/07/24 14:52 Pulse Rate 82 10/07/24 14:52 Respiratory Rate 17 10/07/24 14:52 Blood Pressure 204/94 H 10/07/24 14:52 Pulse Oximetry (%) 100 10/07/24 14:52 Oxygen Delivery Method Room Air 10/07/24 14:52 Extremity Injury, Lower MDM Narrative MDM Narrative:: right knee pain: FINDINGS: Severe osteopenia Advanced narrowing patellofemoral joint No definite acute fracture IMPRESSION: No definite acute fracture Given the severe osteopenia, if knee pain persists, recommend CT scan knee without contrast follow-up tylenol and tramadol fiven for pain. Pt felt better. Pt told to follow up with primary provider in 1-2 days. Come back to ED if symptoms change or worsen. Patient data External records reviewed:: [facility] previous records Clinical information provided by:: patient Social determinants that could affect healthcare access:: none Patient has the following chronic illnesses:: see note How is presenting disease/condition affected by chronic disease/condition?: no chronic disease Evaluation data The following diagnostics were reviewed and interpreted by me:: radiology exam(s) Lab and/or radiology exams considered but not ordered:: none Interpretation Summary: see note Medications / Prescriptions Medications or Prescriptions considered but not ordered:: none Medication administrations:: Medication Administration History Discontinued Medications Acetaminophen (Acetaminophen 500 Mg Tablet) 1,000 mg PO X1 ONE Stop: 10/07/24 15:43 Last Admin: 10/07/24 16:54 Dose: 1,000 mg Documented By: MP Tramadol HCl (Tramadol Hcl 50 Mg Tablet) 50 mg PO X1 ONE Stop: 10/07/24 18:44 Last Admin: 10/07/24 19:33 Dose: 50 mg Documented By: see mar Consultations Consultation(s) initiated? (list below): No Diagnosis Most likely diagnosis given after review of the tests above:: contusion, fracture, sprain Admission Indicated Admission indicated?: not indicated Admission Request Was there a request for admission?: No Disposition Plan Disposition Plan: Discharge Discharge Attestation Discharge Attestation: The patient and all family members were given an opportunity to ask questions and understood the discharge instructions. Discharge instructions specifically effects, indications for sooner follow up or return to the emergency department, and the expected course of current diagnosis. Patient condition: Stable Discharge Plan Plan Patient Disposition: HOME (Self Care) Patient condition on transfer: Stable Prescriptions/Referrals Prescriptions/Med Rec: No Action levothyroxine 175 mcg tablet 175 mcg PO EVERYOTHERDAY Patient Comments: TAKE 1 TABLET BY MOUTH EVERY DAY diphenhydramine HCl [Benadryl Allergy] 25 mg Tablet 25 mg PO BID PRN (Reason: ALLERGY) levothyroxine 200 mcg tablet 200 mcg PO EVERYOTHERDAY Patient Comments: TAKE 1 TABLET BY MOUTH ON MONDAYS, WEDNESDAYS, FRIDAYS AND SUNDAYS carvedilol 6.25 mg Tablet 6.25 mg PO BID Rx Instructions: must administer with a meal/food amlodipine 5 mg Tablet 5 mg PO QDAY furosemide 80 mg Tablet 80 mg PO QDAY losartan 25 mg Tablet 25 mg PO QDAY Januvia 50 mg Tablet 50 mg PO QDAY glyburide 5 mg tablet 10 mg PO BID Patient Comments: TAKE 2 TABLETS BY MOUTH TWICE A DAY FOR DIABETES Referrals: Anupama Whaley PA-C [Primary Care Provider] - In 1 week Problem List Clinical Impression: Contusion of knee, Knee pain Patient/Caregiver Discharge Instructions Discharge Activity: activity as tolerated Education Materials: Bruises (Contusions) Additional Instructions: Follow up with primary provider in 1-2 days. Come back to ED if symptoms change or worsen. If continued knee pain may need further studies such as a CT or MRI with primary provider. Print Language: Frisian Stand Alone Forms: Brandi Award Info., Patient Portal Info Letter AURELIA/SHINE Supervising Physician AURELIA/SHINE Supervising Physician: genet
[2024-10-07] MEDS: ACETAMINOPHEN 500 MG TABLET 1000 MG PO (16:54)
[2024-10-07] MEDS: traMADol HCL 50 MG TABLET PO (19:33)
== END 2024-10-07 19:34 | disposition home or self-care (01) ==
PROVIDERS: Emergency Provider Emergency Medicine; PCP Physician Assistant
DX: S80.01XA Contusion of right knee, initial encounter (principal); M85.861 Other specified disorders of bone density and structure, right lower leg; W19.XXXA Unspecified fall, initial encounter
CPT/HCPCS: 73562; 99283; A9270

== ENCOUNTER → 2024-11-09 | Outpatient (CLI) | payer MEDICARE, MEDICAID, SELFPAY ==
--- NOTE | 2024-11-09 12:40 | XR_ITS ---
Examination: Bone densitometry Date and time of exam:November 01, 2024 1230 hrs. Indications: Menopause age 50 levothyroxine 30 years, diabetic Technique: Lumbar spine and hip total bone mineralization values of an calculated. Peak reference and age match control results have been displayed. Findings: Lumbar spine total bone mineralization is1.008 gm/cm2. This is 0.4 standard deviations below peak reference. This is 1.7 standard deviations above age-matched controls. Hip total bone mineralization is 0.483 gm/cm2 This is 3.8 standard deviations below peak reference. This is 2.3 standard deviations below age-matched controls Impression: There is normal mineralization based on lumbar spine measurements. There is osteoporosis based on hip measurements
== END | disposition home or self-care (01) ==
LOC: CDIM 11:59
PROVIDERS: Referring Provider Physician Assistant; Visit Provider Physician Assistant
DX: M81.0 Age-related osteoporosis without current pathological fracture (principal)
CPT/HCPCS: 77080

== ENCOUNTER → 2025-01-09 | Outpatient (CLI) | payer MEDICARE, MEDICAID, SELFPAY ==
[2025-01-09 10:14] LABS: Glucose Estimated Average 128 mg/dL (80-131); Hemoglobin A1C 6.1 % Hgb (4.8-6.0)
[2025-01-09 10:15] LABS: Anion Gap 8 (7-16); BUN/Creatinine Ratio 33 Ratio (12-20); Blood Urea Nitrogen 77 mg/dL (9-23); Calcium 8.8 mg/dL (8.3-10.6); Carbon Dioxide 26.2 mMol/L (20.0-31.0); Chloride 112 mMol/L (98-107); Creatinine (Component) 2.3 mg/dL (0.6-1.3); Glucose 139 mg/dL (74-106); Osmolality,Calculated 315 (275-295); Potassium 5.2 mMol/L (3.4-5.1); Sodium 146 mMol/L (136-145); eGFR 22 See Note
[2025-01-09 10:49] LABS: Creatinine MALB Rnd Ur 64 mg/dL (30-125); Microalbumin Creat Ratio 594 mg/gCrea (<30); Microalbumin, Random Urine > 380 mg/L (0-300)
== END | disposition home or self-care (01) ==
PROVIDERS: PCP Physician Assistant; Referring Provider Physician Assistant; Visit Provider Physician Assistant
DX: E11.65 Type 2 diabetes mellitus with hyperglycemia (principal)
CPT/HCPCS: 36415; 80048; 82043; 82570; 83036

== ENCOUNTER → 2025-02-11 | Outpatient (CLI) | payer MEDICARE, MEDICAID, SELFPAY ==
--- NOTE | 2025-02-11 12:45 | XR_ITS ---
Exam: MRI knee without contrast, right Date and time of exam: February 11, 2025 1352 hours INDICATIONS: Patient fell September 12, 2024 with into the knee, knee pain Technique: Multiple axial, coronal, and sagittal sections on the knee have been obtained. T2-Weighted sagittal, fat-suppressed images, TR 3,500, TE 62, T2 weighted coronal fat-saturated images, TR 3,500, TE 62 Proton density sagittal sections, TR 1800, TE 31. T-1 weighted coronal images, TR 524, TE 13.0 Findings: Medial meniscus anterior horn intact. Medial meniscus, body truncation inner margin. Posterior horn medial meniscus vertical tear inferior articular surface. Lateral meniscus anterior horn truncation inner margin Lateral meniscus, body horizontal linear tear communicating inner margin Posterior horn lateral meniscus is intact Anterior cruciate ligament appears intact. Posterior cruciate ligament appears intact. Knee effusion is moderate. Quadriceps and patellar tendons appear intact. There is no evidence of tendinosis. Inflammatory change or fracture of Hoffa's fat pad is not seen. Medial patellar facet demonstrates severe thinning. Lateral patellar facet cartilage demonstrates severe thinning. Trochlear cartilage demonstrates severe thinning. Marrow signal adequate. Medial collateral ligament appears intact. No meniscocapsular separation is seen. Illiotibial band and fibular collateral ligament are intact. Biceps femoris tendons appear intact. Medial femoral condylar articular cartilage demonstrates moderate thinning. Lateral femoral condylar articular cartilage demonstratesmoderate thinning. Tibial plateau cartilage demonstrates moderate thinning. Impression: Medial lateral meniscus tears as above Severe thinning cartilage patellofemoral joint
== END | disposition home or self-care (01) ==
LOC: SMRI 12:48
PROVIDERS: PCP Physician Assistant; Referring Provider Physician Assistant; Visit Provider Physician Assistant
DX: S83.281A Other tear of lateral meniscus, current injury, right knee, initial encounter (principal); S83.241A Other tear of medial meniscus, current injury, right knee, initial encounter; W19.XXXA Unspecified fall, initial encounter; M25.861 Other specified joint disorders, right knee
CPT/HCPCS: 73721

== ENCOUNTER → 2025-04-02 | Outpatient (CLI) | payer MEDICARE, MEDICAID, SELFPAY ==
[2025-04-02 09:51] LABS: Collection Type, Urine Clean Catch
[2025-04-02 10:04] LABS: Basophils # (Auto) 0.1 Thou/mm3 (0.0-0.2); Basophils % (Auto) 1 % (0-2.5); Eosinophils # (Auto) 0.3 Thou/mm3 (0.0-0.5); Eosinophils % (Auto) 4 % (0-10); Hematocrit 31.3 % (36.0-46.0); Hemoglobin 10.0 g/dL (12.0-16.0); Immature Granulocytes Auto 0.04 Thou/mm3 (0.00-0.00); Lymphocytes # (Auto) 0.6 Thou/mm3 (1.0-4.8); Lymphocytes % (Auto) 10 % (10-50); Mean Corpuscular HGB Conc 31.9 g/dl (31.0-37.0); Mean Corpuscular Hemoglobin 30.9 pg (25.0-35.0); Mean Corpuscular Volume 97 fL (80-100); Monocytes # (Auto) 0.9 Thou/mm3 (0.0-0.8); Monocytes % (Auto) 13 % (0-12); Neutrophils # (Auto) 4.7 Thou/mm3 (1.8-7.7); Neutrophils % (Auto) 72 % (37-80); Nucleated Red Blood Cell # 0.00 Thou/mm3 (0.00-0.00); Nucleated Red Blood Cell % 0 /100 WBC (0); Platelet Count 253 Thou/mm3 (140-440); RDW Standard Deviation 55.9 fL (36.4-46.3); Red Blood Count 3.24 Miln/mm3 (4.00-5.20); White Blood Count 6.6 Thou/mm3 (3.6-11.0)
[2025-04-02 10:15] LABS: Bilirubin,Urine Negative (Negative); Blood,Urine 2+ (Negative); Budding Yeast,Urine Present; Color,Urine Yellow (Lt Yel-Yel); Glucose, Urine 1+ (Negative); Hyaline Casts,Urine 2 /hpf (0-1); Ketones,Urine Negative (Negative); Leukocyte Esterase,Urine Positive (Negative); Nitrite,Urine Negative (Negative); PH,Urine 6.0 (5.0-7.0); Protein,Urine 3+ (Neg - Trace); RBC,Urine 7 /hpf (0-3); Specific Gravity,Urine 1.026 (1.001-1.035); Squamous Epithelial Cell,Urine 2 /hpf (0-5); Urobilinogen,Urine Negative mg/dL (0.0-1.0); WBC,Urine 18 /hpf (0-5)
[2025-04-02 10:22] LABS: Parathyroid Hormone Intact 101.0 pg/ml (18.5-88.0)
[2025-04-02 10:32] LABS: Albumin, Serum 4.0 gm/dL (3.4-4.8); Anion Gap 11 (7-16); BUN/Creatinine Ratio 29 Ratio (12-20); Blood Urea Nitrogen 79 mg/dL (9-23); Calcium 9.1 mg/dL (8.3-10.6); Calcium (Corrected) 9.1 mg/dL (8.5-10.1); Carbon Dioxide 23.9 mMol/L (20.0-31.0); Chloride 109 mMol/L (98-107); Creatinine (Component) 2.7 mg/dL (0.6-1.3); Glucose 162 mg/dL (74-106); Osmolality,Calculated 314 (275-295); Phosphorous 3.5 mg/dL (2.4-5.1); Potassium 4.6 mMol/L (3.4-5.1); Sodium 144 mMol/L (136-145); eGFR 18 See Note
[2025-04-02 10:42] LABS: Clarity,Urine Hazy (Clear/Hazy)
== END | disposition home or self-care (01) ==
LOC: COPL 08:52
PROVIDERS: PCP Physician Assistant; Referring Provider Physician Assistant; Visit Provider Internal Medicine
DX: I12.9 Hypertensive chronic kidney disease with stage 1 through stage 4 chronic kidney disease, or unspecified chronic kidney disease (principal); N18.30 Chronic kidney disease, stage 3 unspecified
CPT/HCPCS: 36415; 80069; 81001; 83970; 85025

== ENCOUNTER 2025-05-16 08:45 | Outpatient (AMB) | payer MEDICARE, MEDICAID, SELFPAY ==
[2025-05-16 09:19] VITALS: BP 151/67; PULSE 76; RESP 20; TEMP 36.2; O2SAT 95; BMI 34.0
--- NOTE | 2025-05-16 09:19 | ORTHONT_ITS ---
Vital signs 05/16/25 09:19 Height 1.68 m Height Method Stated Weight 95.793 kg Weight Measurement Method Standing Scale BMI 34.0 BP 151/67 H Blood Pressure Source Automatic Cuff Blood Pressure Location Left Upper Arm Position Sitting Respiration 20 Pulse 76 Pulse Source Monitor Temp 97.2 F Temp Source Temporal Artery Scan Pulse Oximetry (%) 95 Oxygen Delivery Method Room Air Med/Allergies Allergies & Medications Allergies shellfish derived Allergy (Intermediate, Verified 05/16/25 09:21) Flushing aspirin Allergy (Verified 05/16/25 09:21) codeine Allergy (Verified 05/16/25 09:21) doxycycline Allergy (Verified 05/16/25 09:21) egg Allergy (Verified 05/16/25 09:21) tetracycline Allergy (Verified 05/16/25 09:21) Medication Reconciliation diphenhydramine HCl 25 mg tablet (Benadryl Allergy) 25 mg PO BID PRN ALLERGY 08/10/23 [History Confirmed 05/16/25] levothyroxine 175 mcg tablet 175 mcg PO EVERYOTHERDAY 08/10/23 [History Confirmed 05/16/25] levothyroxine 200 mcg tablet 200 mcg PO EVERYOTHERDAY 08/10/23 [History Confirmed 05/16/25] amlodipine 5 mg tablet 5 mg PO QDAY 07/30/24 [History Confirmed 05/16/25] carvedilol 6.25 mg tablet 6.25 mg PO BID 07/30/24 [History Confirmed 05/16/25] furosemide 80 mg tablet 80 mg PO QDAY 07/30/24 [History Confirmed 05/16/25] losartan 25 mg tablet 25 mg PO QDAY 07/30/24 [History Confirmed 05/16/25] sitagliptin phosphate 50 mg tablet (Januvia) 50 mg PO QDAY 07/30/24 [History Confirmed 05/16/25] glyburide 5 mg tablet 10 mg PO BID 08/02/24 [History Confirmed 05/16/25] Exam Exam Breathing is nonlabored. Patient has a normal mood and affect. Bilateral extremities were evaluated and demonstrates sensation intact to light touch. Palpable pedal pulses are present. No significant edema is present. Bilateral hips were examined. The patient has no pain with log roll of the hips. Internal rotation to 30 degrees and external rotation to 30 degrees is painless. Negative FADIR. Left knee was examined today. The left knee is in reasonable alignment. Range of motion from 0-120 degrees. Knee is stable to varus and valgus as well as AP translation with <5mm. Patient has a negative McMurrays. There is no pain with patellofemoral compression and no crepitus noted. The knee is nontender to palpation. The right knee was also examined. The right knee is in varus alignment. Range of motion from 0-115 degrees. Knee is stable to varus and valgus as well as AP translation with <5mm. Patient has a negative McMurrays. There is no pain with patellofemoral compression and no crepitus noted. The knee is tender to palpation medially. X-rays demonstrate osteopenia. She has significant arthritis particular in the patellofemoral compartment Assessment and Plan Problem List (1) Arthritis of knee, right: Status: Acute Plan: Patient is a pleasant 70-year-old female with right knee pain and right knee arthritis. We discussed different treatment options. She would like a cortisone injection of the right knee which I think is reasonable. She is not a surgical candidate Recommend knee cortisone injection as patient would like to proceed with conservative treatment at this time. The risks and benefits of the procedure were reviewed with the patient and patient gave verbal consent to continue with the procedure. Procedure: performed by Dr. Gross Using sterile technique the Right knee was thoroughly prepped with alcohol, and approximately 1 cc of Depo-Medrol 80mg/mL and 4 cc of 0.2% ropivacaine was injected without resistance into the medial tibial femoral joint space. The patient tolerated the procedure. Advanced Care Planning Discussion Advance care planning discussed with:: patient Office Procedures GNS Level of Care Nursing/Assessment Patient Status: Initial/New Patient Nursing Assessment/Reassesment: Medication Reconciliation, Update PMH in EMR and Vital Signs Coordination of Care: Complex Care and Chronic Disease 1-5, Education Complex Pt/Fam, Consent,records obtained, informed consent, 1 Ins Authorization, Lab and Imaging orders, Results/Orders obtained and Staff clarify orders New Patient Charge New Patient Point Assignment: 1124 New Patient Point Charge: LABOR REPRESENTATIVE Level 4 (1026-4401) Surgical Proc/IM SQ injection Major Surgical Procedure: Yes (KNEE INJECTION) Medication Given Medication Given Medication Given: Yes Documented Dose Given: 1 Route: Infiitration Medication Given Medication Given Medication Given: Yes Documented Dose Given: 4 Route: Infiitration Office Meds methylprednisolone acetate 80 mg/mL suspension for injection Performing Provider: Kartik Gross MD Performing Location: [facility] Administered by: Kartik Gross MD on 05/16/25 12:00 Dose Route Admin Location Dispensed Lot Number Expiration Date Pack age [facility] NDC Disease Case Manager Rn 80 mg intra-articular 1 mL [id number] 02/08/27 [address]-1 [id number] [employer] ropivacaine (PF) 2 mg/mL (0.2 %) injection solution Performing Provider: Kartik Gross MD Performing Location: [facility] Administered by: Kartik Gross MD on 05/16/25 12:00 Dose Route Admin Location Dispensed Lot Number Expiration Date Pack age [facility] Disease Case Manager Rn 20 mL Infiltration 20 mL [id number] 08/11/26 09639-940-97 [id number] [facility] Intake Visit Data Collection New Patient or Established: New Patient (never been to [facility]) Reason for Visit:: RIGHT KNEE PAIN Seen by Clinical Staff ONLY (RN/MA): No PCP or OBGYN visit in last 3 months: Yes Hx Now: No Do You Feel Safe at Home: Yes Authorities Contacted: N/A Questionairres Past Medical History Past Medical History Have you ever been diagnosed with any of the following: Cardiology Problems Congestive Heart Failure: Yes Hypertension: Yes Respiratory Problems Chronic Obstructive Pulmonary Disease (COPD): No Smoking: No Smoking Cessation Counseling: No Smoking Exposure: No Genital/Urinary Problems Renal Disease: No Endocrine Problems Diabetes Mellitus Type 1: No Diabetes Mellitus Type 2: Yes Hypothyroidism: Yes Blood Problems Anemia: Yes Other Problems Cancer: Yes Subjective Visit Visit for: new patient and knee Immunization / Flu Flu Vaccine in the Last 12 Months: No Flu Vaccine Exclusion Criteria: Refused by Patient History of Present Illness Chief complaint: RIGHT KNEE PAIN Date of injury / onset of symptoms: 3 YEARS There is a pleasant 70-year-old female with significant right knee pain. She expresses heart failure and significant swelling of both legs. She cannot get surgery because of his heart failure. Hemoglobin A1c is 6.1. Personal History Occupation: RETIRED Pain Pain level (0-10): 5 Pain duration: ON AND OFF Pain location: inside (medial), outside (lateral) and anterior Pain quality: aching Pain timing: increases with activity and stairs Ambulatory data Ambulatory device: walker Treatments Number of previous injections: 0 Improvement with previous injections: No Number of Physical Therapy sessions: 5 Improvement with PT: No Improvement with NSAIDS: no Review of Systems Review of Systems: All systems negative unless otherwise noted in HPI.
== END 2025-05-16 09:33 | disposition home or self-care (01) ==
LOC: HODSRG 08:45
PROVIDERS: PCP Physician Assistant; Referring Provider Physician Assistant; Supervising Provider Orthopaedic Surgery Adult Reconstructive Orthopaedic Surgery; Visit Provider Orthopaedic Surgery Adult Reconstructive Orthopaedic Surgery
DX: M17.11 Unilateral primary osteoarthritis, right knee (principal); M25.561 Pain in right knee; I11.0 Hypertensive heart disease with heart failure; I50.9 Heart failure, unspecified; E11.9 Type 2 diabetes mellitus without complications; E03.9 Hypothyroidism, unspecified; R22.43 Localized swelling, mass and lump, lower limb, bilateral
CPT/HCPCS: 20610; 99204; J1010; J2795; G0463

== ENCOUNTER → 2025-05-20 | Outpatient (CLI) | payer MEDICARE, MEDICAID, SELFPAY ==
[2025-05-20 09:23] LABS: Basophils # (Auto) 0.1 Thou/mm3 (0.0-0.2); Basophils % (Auto) 1 % (0-2.5); Eosinophils # (Auto) 0.4 Thou/mm3 (0.0-0.5); Eosinophils % (Auto) 5 % (0-10); Hematocrit 31.3 % (36.0-46.0); Hemoglobin 9.8 g/dL (12.0-16.0); Immature Granulocytes Auto 0.04 Thou/mm3 (0.00-0.00); Lymphocytes # (Auto) 0.6 Thou/mm3 (1.0-4.8); Lymphocytes % (Auto) 8 % (10-50); Mean Corpuscular HGB Conc 31.3 g/dl (31.0-37.0); Mean Corpuscular Hemoglobin 29.7 pg (25.0-35.0); Mean Corpuscular Volume 95 fL (80-100); Monocytes # (Auto) 1.0 Thou/mm3 (0.0-0.8); Monocytes % (Auto) 13 % (0-12); Neutrophils # (Auto) 5.5 Thou/mm3 (1.8-7.7); Neutrophils % (Auto) 72 % (37-80); Nucleated Red Blood Cell # 0.00 Thou/mm3 (0.00-0.00); Nucleated Red Blood Cell % 0 /100 WBC (0); Platelet Count 221 Thou/mm3 (140-440); RDW Standard Deviation 51.9 fL (36.4-46.3); Red Blood Count 3.30 Miln/mm3 (4.00-5.20); White Blood Count 7.6 Thou/mm3 (3.6-11.0)
[2025-05-20 09:51] LABS: Carbon Dioxide 27.0 mMol/L (20.0-31.0); Chloride 105 mMol/L (98-107); Potassium 5.2 mMol/L (3.4-5.1); Sodium 143 mMol/L (136-145)
[2025-05-20 09:52] LABS: Albumin, Serum 4.3 gm/dL (3.4-4.8); Anion Gap 11 (7-16); BUN/Creatinine Ratio 25 Ratio (12-20); Blood Urea Nitrogen 81 mg/dL (9-23); Calcium 9.8 mg/dL (8.3-10.6); Calcium (Corrected) 9.8 mg/dL (8.5-10.1); Creatinine (Component) 3.2 mg/dL (0.6-1.3); Glucose 121 mg/dL (74-106); Osmolality,Calculated 310 (275-295); Phosphorous 4.0 mg/dL (2.4-5.1); eGFR 15 See Note
== END | disposition home or self-care (01) ==
LOC: COPL 08:13
PROVIDERS: PCP Physician Assistant; Referring Provider Internal Medicine; Visit Provider Internal Medicine
DX: I12.9 Hypertensive chronic kidney disease with stage 1 through stage 4 chronic kidney disease, or unspecified chronic kidney disease (principal); N18.4 Chronic kidney disease, stage 4 (severe)
CPT/HCPCS: 36415; 80069; 85025

== ENCOUNTER → 2025-05-27 | Outpatient (CLI) | payer MEDICARE, MEDICAID, SELFPAY ==
[2025-05-27 14:48] LABS: Basophils # (Auto) 0.1 Thou/mm3 (0.0-0.2); Basophils % (Auto) 1 % (0-2.5); Eosinophils # (Auto) 0.3 Thou/mm3 (0.0-0.5); Eosinophils % (Auto) 5 % (0-10); Hematocrit 29.8 % (36.0-46.0); Hemoglobin 9.5 g/dL (12.0-16.0); Immature Granulocytes Auto 0.05 Thou/mm3 (0.00-0.00); Lymphocytes # (Auto) 0.7 Thou/mm3 (1.0-4.8); Lymphocytes % (Auto) 10 % (10-50); Mean Corpuscular HGB Conc 31.9 g/dl (31.0-37.0); Mean Corpuscular Hemoglobin 29.7 pg (25.0-35.0); Mean Corpuscular Volume 93 fL (80-100); Monocytes # (Auto) 1.0 Thou/mm3 (0.0-0.8); Monocytes % (Auto) 15 % (0-12); Neutrophils # (Auto) 4.8 Thou/mm3 (1.8-7.7); Neutrophils % (Auto) 69 % (37-80); Nucleated Red Blood Cell # 0.00 Thou/mm3 (0.00-0.00); Nucleated Red Blood Cell % 0 /100 WBC (0); Platelet Count 244 Thou/mm3 (140-440); RDW Standard Deviation 50.8 fL (36.4-46.3); Red Blood Count 3.20 Miln/mm3 (4.00-5.20); White Blood Count 6.9 Thou/mm3 (3.6-11.0)
[2025-05-27 14:56] LABS: INR 1.1 (0.9-1.3); Partial Thromboplastin Time 26.7 Seconds (22.0-36.0); Prothrombin Time 11.9 Seconds (9.0-12.2)
[2025-05-27 15:00] LABS: Albumin, Serum 4.4 gm/dL (3.4-4.8); Anion Gap 12 (7-16); BUN/Creatinine Ratio 27 Ratio (12-20); Blood Urea Nitrogen 95 mg/dL (9-23); Calcium 9.7 mg/dL (8.3-10.6); Calcium (Corrected) 9.7 mg/dL (8.5-10.1); Carbon Dioxide 25.2 mMol/L (20.0-31.0); Chloride 105 mMol/L (98-107); Creatinine (Component) 3.5 mg/dL (0.6-1.3); Glucose 124 mg/dL (74-106); Osmolality,Calculated 313 (275-295); Phosphorous 4.1 mg/dL (2.4-5.1); Potassium 5.1 mMol/L (3.4-5.1); Sodium 142 mMol/L (136-145); eGFR 13 See Note
[2025-05-27 15:42] LABS: Hepatitis A Antibody IgM Non Reactive (Non React); Hepatitis B Core Antibody IgM Non Reactive (Non React); Hepatitis B Surface Antigen Non Reactive (Non React); Hepatitis C Antibody Non Reactive (Non React)
== END | disposition home or self-care (01) ==
LOC: COPL 13:09
PROVIDERS: PCP Internal Medicine; Referring Provider Internal Medicine; Visit Provider Internal Medicine
DX: N17.9 Acute kidney failure, unspecified (principal); I10 Essential (primary) hypertension
CPT/HCPCS: 36415; 80069; 80074; 85025; 85610; 85730

== ENCOUNTER 2025-05-30 08:58 | Outpatient (CLI) | payer MEDICARE, MEDICAID, SELFPAY ==
[2025-05-30] VITALS (13 sets, daily range): BP systolic 169–188; BP diastolic 69–87; PULSE 51–67; RESP 14; TEMP 36.4–36.8; O2SAT 92–100; BMI 30.8
--- NOTE | 2025-05-30 09:00 | XR_ITS ---
Ultrasound-guided needle placement right internal jugular vein Permanent tunneled dialysis catheter insertion, percutaneous Fluoroscopy AP chest, portable, single view. Date and time of procedure: May 30, 2025 0914 hours INDICATIONS: Renal failure patient needing stat and long-term dialysis with permanent tunneled dialysis catheter Informed consent provided Technique: A timeout was completed verifying correct patient, procedure, site, positioning, and special equipment if applicable. The patient was placed in a dependent position appropriate for dialysis catheter placement based on the vein to be cannulated. The patient'sright neck was prepped and draped in sterile fashion. Maximum Sterile Barrier Technique used including cap, mask, sterile gown, sterile gloves, and sterile full body drape. If ultrasound technique used: sterile gel and sterile probe covers. Hand Hygiene performed using proper scrub, soap and water, or alcohol-based hand rub. 1% lidocaine was used to anesthetize the surrounding skin area The [employer] portable ultrasound apparatus utilized to confirm patency of the right internal jugular vein. Utilizing ultrasonographic guidance successful 21-gauge needle puncture right internal jugular vein Ultrasound images were recorded and stored. Vessel micropuncture was performed with 21-gauge needle. 0.18 wire guide is introduced into the vein. 0.18 wire is introduced into the vena cava under fluoroscopy. Subcutaneous tunnel formed in the upper chest. Permanent tunneled dialysis catheter placed in the subcutaneous tunnel. Dilators were introduced over the J-wire guide. Tunneled dialysis catheter is introduced through a dilator with venous sheath into the superior vena cava under fluoroscopic guidance. The catheter is sutured in place to the skin and a sterile dressing applied. Perfusion to the extremity distal to the point of catheter insertion is checked and found to be adequate Attending radiologist was present for the entire procedure Estimated blood loss2 cc. The patient tolerated the procedure well and there were no complications Impression: Successful ultrasound-guided needle placement right internal jugular vein Successful permanent tunneled dialysis catheter insertion, percutaneous Fluoroscopy 0.4 minute radiation dose 3.00 milligray 1 spot fluoroscopic chest film. AP chest performed at completion procedure demonstrates satisfactory position dialysis catheter. May use dialysis catheter.
[2025-05-30] MEDS: SODIUM CHLORIDE 0.9% 500 ML 500 ML 20 ML IV (10:40)
[2025-05-30] MEDS: fentaNYL CIT INJ 50 mCg/ML AMP 2ML IVP (10:51)
[2025-05-30] MEDS: LIDOCAINE INJ PF 1% 30 ML VIAL 9 ML INFL (10:52)
[2025-05-30] MEDS: HEPARIN SOD LOCK SYR 100 UNIT/ML 500 UNIT STFIELD (10:52)
[2025-05-30] MEDS: HEPARIN SOD INJ 1000 UNIT/ML VIAL 3500 UNIT INDWELLCAT (11:05)
--- NOTE | 2025-05-30 16:10 | PC.NURSE ---
1120 patient is awake, alert, breathing unlabored, s/p perm cath insertion to right IJ, dressing to right chest dry with no active bleeding, patient transferred to laboratory mechanical technician for 1 hour recovery. OK to use dialysis catheter per MD. Pt had nausa, refused medication, wanted saltine crakers. 1145 patient tolerated crakers, no active nausea or vomiting 1246 patient is awake, alert, breathing unlabored, dressing dry with no bleeding. Patient able to tolerate crackers, sandwich and 7up with no nausea or vomiting. Patient able to ambulate to bathroom with assistance, meets discharge criteria, discharge instructions given to patient and family member Debbie. Patient discharged home [facility] with all belongings including walker.
== END 2025-05-30 12:46 | disposition home or self-care (01) ==
PROVIDERS: PCP Physician Assistant; Referring Provider Internal Medicine; Visit Provider Internal Medicine
DX: N17.8 Other acute kidney failure (principal)
CPT/HCPCS: 36561; 76937; 77001; A4649; C1750; C1894; J1642; J1643; J3010; J3490; J7050; J7999

== ENCOUNTER → 2025-08-16 | Outpatient (CLI) | payer MEDICARE, MEDICAID, SELFPAY ==
--- NOTE | 2025-08-16 09:30 | ECHO_ITS ---
Patient Info Name: Rayray Ratliff Age: 70 years : 1955 Gender: Female Ht: 168 cm Wt: 78 kg BSA: 1.93 m2 BP: 162 / 75 mmHg HR: 68 bpm Exam Date: 08/16/2025 9:17 AM Admit Date: 08/16/2025 Site: [facility] Room Number: Echo Patient Status: O Exam Type: CA echo doppler complete Room Service Waiter/Waitress: Harika Villarreal Ordering Physician: Neo Mast Referring Physician: Neo Mast Study Info Indications Heart failure, unspecified - Primary Location: SDIM Left Ventricular Outflow Tract Name Value Normal LVOT 2D LVOT Diameter 1.9 cm LVOT Doppler LVOT Peak Velocity 98 cm/s LVOT Mean Gradient 2 mmHg LVOT VTI 23 cm LVOT VTI/AV VTI Ratio 0.6 LVOT Stroke Volume 64 ml Pulmonic Valve Name Value Normal PV Doppler PV Peak Velocity 94 cm/s Mitral Valve Name Value Normal MV Doppler MV Mean Gradient 2 mmHg MV Decel [place] 355 cm/s2 MV PHT 48 ms MV Area (PHT) 4.6 cm2 4.0-5.0 MV Area (Cont Eq VTI) 1.6 cm2 MV Diastolic Function MV E Peak Velocity 59 cm/s MV A Peak Velocity 91 cm/s MV E/A 0.6 MV Annular TDI MV Septal e' Velocity 4.0 cm/s MV E/e' (Septal) 14.6 MV Lateral e' Velocity 3.7 cm/s MV E/e' (Lateral) 15.9 MV e' Average 3.87 cm/s MV E/e' (Average) 15.2 Tricuspid Valve Name Value Normal TV Regurgitation Doppler TR Peak Velocity 292 cm/s Estimated PAP/RSVP RA Pressure 3 mmHg <=5 PA Systolic Pressure 37 mmHg <36 RV Systolic Pressure 37 mmHg <36 TV Annular TDI TV Lateral Kary s' Velocity 10.0 cm/s >=9.5 Aortic Valve Name Value Normal AV 2D/MM AV Cusp Sep (MM) 1.2 cm AV Doppler AV Peak Velocity 157 cm/s AV Mean Gradient 5 mmHg AV VTI 39 cm AV Area (Cont Eq VTI) 1.7 cm2 >=3.0 AV Area (Cont Eq Felice) 1.8 cm2 AV DI (Felice) 0.63 AV Regurgitation 2D LVOT Area 2.8 cm2 Ventricles Name Value Normal LV Dimensions 2D/MM IVS Diastolic Thickness (2D) 0.9 cm 0.6-0.9 LVID Diastole (2D) 5.6 cm 3.8-5.2 LVIW Diastolic Thickness (2D) 1.1 cm 0.6-0.9 LVID Systole (2D) 4.4 cm 2.2-3.5 LVOT Diameter 1.9 cm LV Mass (2D Cubed) 219.72 g 67.00-162.00 LV Mass Index (2D Cubed) 114 g/m2 43-95 Relative Wall Thickness (2D) 0.39 <=0.42 IVS/LVIW Diastolic Thickness (2D) 0.82 0.00-1.50 LV Fractional Shortening/Ejection Fraction 2D/MM LV Fractional Shortening (2D) 21 % 27-45 LV EF (2D Teichholz) 43 % LV Diastolic Volume (4C MOD) 145 ml LV EF (4C MOD) 46 % LV Diastolic Volume (2C MOD) 150 ml LV EF (2C MOD) 47 % LV Diastolic Volume (BP MOD) 155 ml 46-106 LV Diastolic Volume Index (BP MOD) 80 ml/m2 29-61 LV Systolic Volume (BP MOD) 80 ml 14-42 LV Systolic Volume Index (BP MOD) 42 ml/m2 8-24 LV EF (BP MOD) 48 % 54-74 LV Diastolic Length (4C) 8.3 cm LV Systolic Length (4C) 7.8 cm LV Stroke Volume (4C MOD) 66 ml RV Dimensions 2D/MM TV Lateral Kary s' Velocity 10.0 cm/s >=9.5 Atria Name Value Normal LA Dimensions LA Volume (4C A-L) 73 ml LA Volume (BP A-L) 92 ml Wall Motion Scoring Left Ventricle Left ventricular chamber dimension is moderately enlarged. Left ventricular systolic function is normal with visually estimated ejection fraction of 30-35%. There is normal geometry noted in the left ventricle. The apex, inferior wall, anterior wall, inferoseptal wall, anterolateral wall, mid anteroseptal, and mid inferolateral wall are hypokinetic. The basal anteroseptal, and basal inferolateral wall are not scored. Left ventricular segmental wall motion is normal. There is grade I diastolic dysfunction in the left ventricle. Right Ventricle Right ventricular chamber dimension is mildly enlarged. Right ventricular systolic function is normal. Flattening of the ventricular septum in mid to late systole consistent with right ventricular volume overload. Left Atrium Left atrial chamber dimension is mildly enlarged. Right Atrium Right atrial chamber dimension is normal. Aortic Valve The aortic valve is trileaflet. There is mild aortic valve sclerosis. There is no aortic valve stenosis with a peak velocity of 157 cm/s, mean gradient of 5 mmHg, and aortic valve area of 1.7 cm2. There is no aortic valve regurgitation. Pulmonic Valve The pulmonic valve is normal. There is no pulmonic valve stenosis. There is trace pulmonic regurgitation. Mitral Valve The mitral valve has thickened leaflets. There is mild mitral valve stenosis. There is mild mitral valve regurgitation. Tricuspid Valve The tricuspid valve leaflets are normal. There is no tricuspid valve stenosis. There is mild tricuspid valve regurgitation. Pulmonary hypertension, estimated pulmonary arterial systolic pressure is 37 mmHg and systemic blood pressure of 162 mmHg in systole. Pericardium/Pleural The pericardium appears normal. There is no pericardial effusion. No pleural effusion visualized. Inferior Vena Cava Normal inferior vena cava with >50% collapse upon inspiration consistent with normal right atrial pressure, 3 mmHg. Aorta The aortic measurements are indexed to age and body surface area. Summary 1. Right ventricle chamber size is mildly enlarged and systolic function is normal. Estimated RVSP is 37 mmHg. Mild -Moderate HTN. 2. There is mild mitral valve stenosis and mild regurgitation. Moderate MAC and thickened leaflets. 3. There is mild tricuspid valve regurgitation. 4. trace pulmonic valve regurgitation. 5. The left atrium is mildly enlarged. The right atrium is normal. 6. Normal IVC with estimated RA pressure 3 mmHg. 7. Left ventricle size is moderately enlarged and systolic function is normal. Estimated ejection fraction is 30-35%. There is grade I diastolic dysfunction. There is normal geometry noted. Report Signatures Finalized by Fabby Gudino on 08/16/2025 04:36 PM
== END | disposition home or self-care (01) ==
LOC: SDIM 08:51
PROVIDERS: PCP Physician Assistant; Referring Provider Surgery Vascular Surgery; Visit Provider Surgery Vascular Surgery
DX: I08.1 Rheumatic disorders of both mitral and tricuspid valves (principal); I05.0 Rheumatic mitral stenosis; I51.7 Cardiomegaly; I10 Essential (primary) hypertension
CPT/HCPCS: 93306

== ENCOUNTER 2025-08-30 10:44 | Outpatient (AMB) | payer MEDICARE, MEDICAID, SELFPAY ==
[2025-08-30 10:56] VITALS: BP 184/74; PULSE 72; RESP 18; TEMP 36.8; BMI 28.3
--- NOTE | 2025-08-30 10:56 | PD.ORTHCLVIS ---
Vital signs 08/30/25 10:56 Height 1.68 m Height Method Stated Weight 79.946 kg Weight Measurement Method Standing Scale BMI 28.3 BP 184/74 H Blood Pressure Source Automatic Cuff Blood Pressure Location Right Upper Arm Position Sitting Respiration 18 Pulse 72 Pulse Source Monitor Temp 98.2 F Temp Source Temporal Artery Scan Med/Allergies Allergies & Medications Allergies shellfish derived Allergy (Intermediate, Verified 08/30/25 10:59) Flushing aspirin Allergy (Verified 08/30/25 10:59) codeine Allergy (Verified 08/30/25 10:59) doxycycline Allergy (Verified 08/30/25 10:59) egg Allergy (Verified 08/30/25 10:59) tetracycline Allergy (Verified 08/30/25 10:59) Medication Reconciliation diphenhydramine HCl 25 mg tablet (Benadryl Allergy) 25 mg PO BID PRN ALLERGY 08/10/23 [History Confirmed 08/30/25] levothyroxine 175 mcg tablet 175 mcg PO EVERYOTHERDAY 08/10/23 [History Confirmed 08/30/25] levothyroxine 200 mcg tablet 200 mcg PO EVERYOTHERDAY 08/10/23 [History Confirmed 08/30/25] amlodipine 5 mg tablet 5 mg PO QDAY 07/30/24 [History Confirmed 08/30/25] carvedilol 6.25 mg tablet 6.25 mg PO BID 07/30/24 [History Confirmed 08/30/25] furosemide 80 mg tablet 80 mg PO QDAY 07/30/24 [History Confirmed 08/30/25] losartan 25 mg tablet 50 mg PO QDAY 07/30/24 [History Confirmed 08/30/25] sitagliptin phosphate 50 mg tablet (Januvia) 50 mg PO QDAY 07/30/24 [History Confirmed 08/30/25] glyburide 5 mg tablet 5 mg PO BID 08/02/24 [History Confirmed 08/30/25] calcium 600 mg capsule 600 mg PO BID 05/30/25 [History Confirmed 08/30/25] ferrous sulfate 325 mg (65 mg iron) tablet 325 mg PO DAILY 05/30/25 [History Confirmed 08/30/25] Exam Exam Breathing is nonlabored. Patient has a normal mood and affect. Bilateral extremities were evaluated and demonstrates sensation intact to light touch. Palpable pedal pulses are present. No significant edema is present. Bilateral hips were examined. The patient has no pain with log roll of the hips. Internal rotation to 30 degrees and external rotation to 30 degrees is painless. Negative FADIR. Left knee was examined today. The left knee is in reasonable alignment. Range of motion from 0-120 degrees. Knee is stable to varus and valgus as well as AP translation with <5mm. Patient has a negative McMurrays. There is no pain with patellofemoral compression and no crepitus noted. The knee is nontender to palpation. The right knee was also examined. The right knee is in varus alignment. Range of motion from 0-115 degrees. Knee is stable to varus and valgus as well as AP translation with <5mm. Patient has a negative McMurrays. There is no pain with patellofemoral compression and no crepitus noted. The knee is tender to palpation medially. X-rays demonstrate osteopenia. She has significant arthritis particular in the patellofemoral compartment Assessment and Plan Problem List (1) Arthritis of knee, right: Status: Acute Plan: Patient is a pleasant 70-year-old female with right knee pain and right knee arthritis. We discussed different treatment options. She would like a cortisone injection of the right knee which I think is reasonable. She is not a surgical candidate Recommend knee cortisone injection as patient would like to proceed with conservative treatment at this time. The risks and benefits of the procedure were reviewed with the patient and patient gave verbal consent to continue with the procedure. Procedure: performed by Dr. Gross Using sterile technique the Right knee was thoroughly prepped with alcohol, and approximately 1 cc of Depo-Medrol 80mg/mL and 4 cc of 0.2% ropivacaine was injected without resistance into the medial tibial femoral joint space. The patient tolerated the procedure. Advanced Care Planning Discussion Advance care planning discussed with:: patient Office Procedures GNS Level of Care Nursing/Assessment Patient Status: Established Patient Nursing Assessment/Reassesment: Medication Reconciliation, Update PMH in EMR and Vital Signs Coordination of Care: Complex Care and Chronic Disease 1-5, Education Complex Pt/Fam, Consent,records obtained, informed consent, Results/Orders obtained and Staff clarify orders Established Patient Charge Established Patient Point Assignment: 95 Established Patient Point Charge: EP Level 3 (80-115) Surgical Proc/IM SQ injection Minor Surgical Procedure: Yes (KNEE INJECTION ) MA Intake Visit Data Collection New Patient or Established: Established Patient (seen at [facility] within 3 years) Reason for Visit:: F/U ON RIGHT KNEE Seen by Clinical Staff ONLY (RN/MA): No Verbal consent obtained for Telemed visit?: No Financial Planning Consultant Required: No PCP or OBGYN visit in last 3 months: Yes Hx Now: No Do You Feel Safe at Home: Yes Authorities Contacted: N/A Questionairres Past Medical History Past Medical History Have you ever been diagnosed with any of the following: Cardiology Problems Congestive Heart Failure: Yes Edema: Yes (bilateral lower legs) Hypertension: Yes Respiratory Problems Chronic Obstructive Pulmonary Disease (COPD): No Smoking: No Smoking Cessation Counseling: No Smoking Exposure: No Genital/Urinary Problems Renal Disease: No Reproductive Problems Previous Pregnancies: No Musculoskeletal Problems Arthritis: Yes (right knee pain) Endocrine Problems Diabetes Mellitus Type 1: No Diabetes Mellitus Type 2: Yes Hypothyroidism: Yes Blood Problems Anemia: Yes Other Problems Blood Transfusions: Yes Blood Transfusion Reaction: No Anesthesia Reactions: No Cancer: Yes Subjective Visit Visit for: new patient and knee Immunization / Flu Flu Vaccine in the Last 12 Months: No Flu Vaccine Exclusion Criteria: Refused by Patient History of Present Illness Chief complaint: RIGHT KNEE PAIN Date of injury / onset of symptoms: 3 YEARS There is a pleasant 70-year-old female with significant right knee pain. She expresses heart failure and significant swelling of both legs. She cannot get surgery because of his heart failure. Hemoglobin A1c is 6.1. Patient is now on dialysis Personal History Occupation: RETIRED Pain Pain level (0-10): 5 Pain duration: ON AND OFF Pain location: inside (medial), outside (lateral) and anterior Pain quality: aching Pain timing: increases with activity and stairs Ambulatory data Ambulatory device: walker Treatments Number of previous injections: 0 Improvement with previous injections: No Number of Physical Therapy sessions: 5 Improvement with PT: No Improvement with NSAIDS: no Review of Systems Review of Systems: All systems negative unless otherwise noted in HPI.
== END 2025-08-30 11:04 | disposition home or self-care (01) ==
LOC: HODSRG 10:44
PROVIDERS: PCP Physician Assistant; Referring Provider Physician Assistant; Supervising Provider Orthopaedic Surgery Adult Reconstructive Orthopaedic Surgery; Visit Provider Orthopaedic Surgery Adult Reconstructive Orthopaedic Surgery
DX: M17.11 Unilateral primary osteoarthritis, right knee (principal); M25.561 Pain in right knee; I11.0 Hypertensive heart disease with heart failure; I50.9 Heart failure, unspecified; M79.89 Other specified soft tissue disorders
CPT/HCPCS: 20610; 99213; J1010; J2795; G0463